=== PATIENT | female | born 2000 ===

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

== ENCOUNTER 2021-09-30 20:40 | Emergency (ER) | payer OTHER, MEDICAID, SELFPAY ==
[2021-09-30 22:01] VITALS: BP 139/64; PULSE 118; RESP 18; TEMP 37.5; O2SAT 99; BMI 28.4
[2021-09-30 22:35] LABS: COVID-19 Test Positive (Negative)
[2021-09-30 22:46] LABS: IDNOW Serial# 16C4AD1C; Influenza A Negative (Negative); Influenza B2 Negative (Negative)
--- NOTE | 2021-09-30 23:00 | ED_ITS ---
HPI - General Adult General Chief complaint: General Medical Stated complaint: fever, migraine, stuffy nose, sore throat Time Seen by Provider: 09/30/21 22:55 Source: patient Mode of arrival: ambulatory Limitations: no limitations History of Present Illness HPI narrative: Patient comes to the emergency room complaining of fever, body aches, congestion, headache for 2 days. Patient has been taking Tylenol with no relief. Patient denies nausea vomiting or diarrhea, no coughing, no chest pain or shortness of breath. Related Data Previous Rx's Medication Instructions Recorded nirmatrelvir 300 mg (150 mg x See Rx Instructions .ROUTE 09/30/21 2)-ritonavir 100 mg tablet (EUA) .COMPLEX #30 tab (Paxlovid 300 mg () Allergies Allergy/AdvReac Type Severity Reaction Status Date / Time No Known Allergies Allergy Verified 09/30/21 22:09 Review of Systems Review of Systems: Constitutional : No Weight loss, complaining of fever, chills, body aches ENT/Mouth : No Hearing loss, No Ear Pain, complaining of Nasal Congestion, No Sinus Pain, No Hoarseness, No sore throat, No Rhinorrhea, No Swallowing Difficulty Eyes: No Eye Pain, No Swelling, No Redness, No Foreign Body, No Discharge, No Vision Changes Cardiovascular : No Chest Pain, No SOB, No Dyspnea on Exertion, No Orthopnea, No Edema, No Palpitations Respiratory : No Cough, No Sputum, No Wheezing, No Smoke Exposure, No Dyspnea Gastrointestinal : No Nausea, No Vomiting, No Diarrhea, No Constipation, No abdominal Pain, No Hematochezia, No Melena Genitourinary : no irregular bleeding, No Dysuria, No Urinary Frequency, No Hematuria, No Urinary Incontinence, No Urgency, No Flank Pain, No Urinary Flow Changes, No Hesitancy Musculoskeletal : No joint pain, No Myalgias, No Joint Swelling Skin : No Skin Lesions, No rash Neuro : No Weakness, No Numbness, No Paresthesias, No Loss of Consciousness, No Dizziness, complaining of Headache Psych : No Anxiety/Panic, No Depression, No SI/HI/AH/VH, No Social Issues, Heme/Lymph: No Bruising, No Bleeding,No Lymphadenopathy Endocrine : No Polyuria, No Polydipsia, No Temperature Intolerance [facility] Social History Social History Advance Directives: No Advance Directives Information Provided: No Physical Exam ED Vital Signs: Vital Signs - 24 hr 09/30/21 22:01 Temperature 99.5 F Pulse Rate 118 H Respiratory Rate 18 Blood Pressure 139/64 Pulse Oximetry 99 BMI result Body Mass Index 28.4 Const Other: Appearance: Alert. Oriented X3. No acute distress. Eyes: Pupils equal, round and reactive to light. ENT: Pharynx normal. Neck: Normal inspection. Neck supple. No lymph nodes noted. No crepitus CVS: Normal heart rate and rhythm. Pulses normal. Normal S1 and S2 Respiratory: No respiratory distress. Breath sounds normal. No Wheezing. No rales Abdomen: Soft and nontender. No rigidity. No distention. Skin: Skin warm and dry. Normal skin color. Normal skin turgor. Extremities: No lower extremity edema. No Lacerations. No Rash Neuro: Oriented X 3. No motor deficit. No sensory deficit. Moving all extremities. No slurred speech. CN 2 through 12 grossly intact Psych: calm, cooperative, normal affect Course Course Course Narrative: Patient tested positive for COVID-19. Patient is immunized. I discussed with the patient that she is still in the window of treatment for Paxlovid. Patient agrees with plan Medical Decision Making Lab Data Labs: Lab Results 09/30/21 09/30/21 Range/Units 22:11 22:11 COVID-19 (PILY) Positive A (Negative) COVID-19 Clin Com See Note Influenza Type A (JACKY) Negative (Negative) Influenza Type B (JACKY) Negative (Negative) Influenza A & B Note See Note Discharge Plan Discharge Clinical Impression: COVID-19 Patient Disposition: Home, Self-Care Instructions: COVID-19 (Coronavirus Disease 2019) (ED) Additional Instructions: Please follow-up with your primary care physician tomorrow. If you have any worsening or new symptoms, please return to the emergency room or call 911 Prescriptions: New Paxlovid (EUA) 150 mg x 2- 100 mg tablet See Rx Instructions .ROUTE .COMPLEX Qty: 30 0RF Rx Instructions: take TWO 150 mg tablets of nirmatrelvir with ONE 100 mg tablet of ritonavir twice daily for 5 days
== END 2021-09-30 23:32 | disposition home or self-care (01) ==
PROVIDERS: Emergency Provider Emergency Medicine
DX: U07.1 COVID-19 (principal); R50.9 Fever, unspecified; M79.10 Myalgia, unspecified site; G43.909 Migraine, unspecified, not intractable, without status migrainosus; Z79.899 Other long term (current) drug therapy
CPT/HCPCS: 87502; 87635; 99282; 99283

== ENCOUNTER 2021-10-05 15:06 | Outpatient (REF) | payer OTHER, MEDICAID, SELFPAY ==
[2021-10-05 16:08] LABS: COVID-19 Test Positive (Negative)
== END 2021-10-05 15:07 | disposition home or self-care (01) ==
LOC: HO.LAB 15:06
PROVIDERS: Visit Provider Internal Medicine
DX: Z20.822 Contact with and (suspected) exposure to COVID-19 (principal)
CPT/HCPCS: 87635; C9803

== ENCOUNTER 2021-10-12 13:54 | Outpatient (REF) | payer OTHER, MEDICAID, SELFPAY ==
[2021-10-12 14:36] LABS: COVID-19 Test Negative (Negative)
== END 2021-10-12 13:55 | disposition home or self-care (01) ==
LOC: HO.LAB 13:54
PROVIDERS: Visit Provider Internal Medicine
DX: Z20.822 Contact with and (suspected) exposure to COVID-19 (principal)
CPT/HCPCS: 87635; C9803

== ENCOUNTER 2022-09-26 13:22 | Emergency (ER) | payer OTHER, SELFPAY ==
[2022-09-26 14:55] VITALS: BP 140/73; PULSE 75; RESP 18; TEMP 36.3; O2SAT 99; BMI 27.5
--- NOTE | 2022-09-26 14:55 | ED_ITS ---
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 Patient reports she had 3 wisdom teeth removed on Monday at the oral surgeon. Two on the left and 1 on the right lower. Patient reports since leaving she has had pain and swelling in her face which is unrelieved with taking ibuprofen at home. She denies any fevers, chills, difficulty breathing, difficulty swallowing. Patient reports she called the surgeon today but they did not call her back so she came here to the emergency room. Related Data Previous Rx's Medication Instructions Recorded clindamycin palmitate HCl 75 mg/5 300 mg (20 mL) PO TID 7 days #420 09/26/22 mL oral solution mL ibuprofen 100 mg/5 mL oral 600 mg (30 mL) PO Q6H PRN pain 09/26/22 suspension #473 mL Allergies Allergy/AdvReac Type Severity Reaction Status Date / Time No Known Allergies Allergy Verified 09/26/22 14:55 Review of Systems Review of Systems: Yes all other systems are reviewed and are negative Constitutional: Constitutional: Reports no additional constitutional complaints, Denies body ache(s), Denies chills, Denies fever(s), Denies headache(s) and Denies weakness Eyes: Eyes: Reports no additional eye complaints and Denies change in vision ENT: Reports system reviewed and no additional complaints, except as documented, Reports dental pain, Denies dizziness, Denies headache(s), Denies nasal congestion, Denies nasal discharge and Denies neck pain Cardiovascular: Cardiovascular: Reports no additional cardiovascular complaints, Denies chest pain, Denies leg edema and Denies dyspnea Respiratory: Respiratory: Reports no additional respiratory complaints, Denies cough and Denies dyspnea Gastrointestinal: Gastrointestinal: Reports no additional gastrointestinal complaints, Denies abdominal pain, Denies diarrhea, Denies nausea and Denies vomiting Genitourinary: Genitourinary: Reports no additional female genitourinary complaints and Denies urinary incontinence Musculoskeletal: Musculoskeletal: Reports no additional musculoskeletal complaints, Denies back pain, Denies arthralgias, Denies joint swelling, Denies neck pain, Denies numbness and Denies tingling Integumentary/Breasts: Skin/Breast: Reports system reviewed and no additional complaints, except as docu and Denies rash Neurologic: Reports system reviewed and no additional complaints, except as documented, Denies Abnormal speech present, Denies dizziness, Denies headache(s), Denies numbness, Denies tingling and Denies weakness PMFSH Past Medical History Medical History (Updated 09/26/22 @ 15:03 by Cele Alexis NP) control counseling COVID-19 Immunization declined Irregular menstrual bleeding Surgical History (Updated 09/20/22 @ 11:06 by Araceli De MD) No pertinent past surgical history Family History Family History Mother Obese Diabetes mellitus Bronchial asthma Maternal Grandmother Diabetes mellitus Brother Bronchial asthma Social History Social History Housing: Other Patient Tobacco Use Status: Never used Tobacco e-Cigarette/Vaping Use: Never Used Advance Directives: No Advance Directives Information Provided: Yes service: No Current occupational status: unemployed Hearing needs: No Vision needs: Yes Physical Exam Vital Signs: Vital Signs: Last Vital Signs Temp 97.3 F 09/26/22 14:55 Pulse 75 09/26/22 14:55 Resp 18 09/26/22 14:55 BP 140/73 H 09/26/22 14:55 Pulse Ox 99 09/26/22 14:55 O2 Del Method Room Air 09/26/22 14:55 BMI result Body Mass Index 27.5 Const: General: cooperative, healthy appearing, comfortable and no acute distress Orientation/consciousness: patient oriented x3 Limitations: no limitations HEENT: Other: No trismus I do not appreciate any dental abscess on exam Ears: hearing grossly normal bilaterally and TM's normal bilaterally General nose exam: Normal external nose present Face and sinus: Yes normal facial exam Face images: 1. Swelling and tenderness. No palpable abscess. Mouth: Normal oral and palatal mucosa present Teeth image: 1. Incision site 2. Incision site 3. Incision site Throat: Yes posterior oropharynx normal, Yes tonsils normal and Yes uvula midline Eyes: General: appearance normal, both eyes and all related structures Pu pils: Equal, round and reactive pupils present Neck: Neck: Yes normal visual inspection, Yes full ROM and Yes no lymphadenopathy Chest: Chest palpation & inspection: normal inspection of the chest Resp: Effort & Inspection: normal respiratory effort Auscultation: clear to auscultation bilaterally Cardio: Rate: regular rate Rhythm: regular rhythm Peripheral pulses: Peripheral pulses 2+ throughout GI: Inspection: Yes normal to inspection Palpation (GI): Soft to palpation and nontender Auscultation: normal bowel sounds Back/Spine/Pelvis: Thoracic/Lumbar Spine: thoracic and lumbar spine normal to inspection Skin: General skin exam: no rashes or lesions noted Neuro: General: patient oriented x3, no focal motor deficits and normal sensation to monofilament Cranial nerves: Yes Equal, round and reactive pupils present Cognition (Neuro): normal cognition Speech: No Abnormal speech present Gait exam (Neuro): Normal gait present Motor exam (neuro): 5/5 motor strength present throughout Extrem: General: Yes normal to inspection Course Course Course Narrative: This is a rapid Had wisdom teeth pulled 3 days ago Medical Decision Making Medical Decision Making [facility] Narrative: 22-year-old female who is status post 3 wisdom teeth removal on Monday presents to the ER with left facial swelling and pain despite taking ibuprofen at home. On exam there is swelling and pain over the left cheek. There is no obvious abscess. Consider postop infection. Patient will benefit from following up with her oral surgeon which she has not done so. I will start her on antibiotics with recommendations to continue to alternate Motrin and Tylenol as needed. Also recommend saltwater gargles and soft foods. Differential Diagnosis Differential Diagnoses: The differential diagnosis associated with the presentation includes Low concern for Carlos's angina, dental abscess Discharge Plan Discharge Clinical Impression: Dental infection Patient Disposition: Home, Self-Care Instructions: Toothache (ED) Additional Instructions: Alterna Motrin con Tylenol para el dolor. S?lo alimentos blandos. Hacer g?rgaras de agua salada. Llame al dentista ma?manish para el seguimiento. Alternate Motrin with Tylenol for pain. Soft foods only. Saltwater gargle. Call the dentist tomorrow to follow-up Prescriptions: New ibuprofen 100 mg/5 mL suspension 600 mg PO Q6H PRN (Reason: pain) Qty: 473 0RF clindamycin palmitate HCl 75 mg/5 mL recon soln 300 mg PO TID 7 Days Qty: 420 0RF Referrals: Araceli De MD [Primary Care Provider] - 1 week Interventions: ED Discharge Assessment Last Done: 09/26/22 15:11 Discharge Date/Time: 09/26/22 15:19
== END 2022-09-26 15:19 | disposition home or self-care (01) ==
PROVIDERS: Emergency Provider Student in an Organized Health Care Education/Training Program; PCP Internal Medicine
DX: K04.7 Periapical abscess without sinus (principal)
CPT/HCPCS: 99282; 99283

== ENCOUNTER 2022-11-14 12:19 | Outpatient (REF) | payer OTHER, SELFPAY | END 2022-11-14 12:20 | disposition home or self-care (01) | LOC: HO.HMGCLDS 12:19 | PROVIDERS: PCP Internal Medicine; Visit Provider Internal Medicine | DX: Z00.01 Encounter for general adult medical examination with abnormal findings (principal); N92.6 Irregular menstruation, unspecified | CPT/HCPCS: 36415; 80048; 80061; 82306; 84443; 84450; 84460; 85025 ==

== ENCOUNTER 2022-12-20 19:11 | Emergency (ER) | payer OTHER, SELFPAY ==
[2022-12-20 19:30] VITALS: BP 135/76; PULSE 90; RESP 18; TEMP 36.5; O2SAT 97; BMI 28.0
--- NOTE | 2022-12-20 19:32 | ED_ITS ---
HPI - Skin/Abscess/Foreign Bdy General Chief complaint: Skin/Abscess/Foreign Body Stated complaint: Rash Time Seen by Provider: 12/20/22 19:36 Source: patient Mode of arrival: ambulatory Limitations: no limitations History of Present Illness HPI narrative: 22 yo female presenting to the ER for evaluation of lower extremity bites and itching for the last 2 days. Recently treated her house and cat for fleas and had bites on her feet last week. She reports the lesions on her lower legs are bigger than the flea bites on her feet from last week. They are very itchy and she has trouble sleeping due to the itch. No fevers. No lesions on the arms or trunk. complaint: rash and insect bite/sting Onset (ago): day(s) (2) Location: LLE, RLE, L foot and R foot Severity: moderate Quality: constant and pruritic Pain Consistency: constant Relieving factors: none Exacerbating factors: none Context: witnessed insect bite Associated symptoms: denies other symptoms Treatments prior to arrival: none Related Data Previous Rx's Medication Instructions Recorded clindamycin palmitate HCl 75 mg/5 300 mg (20 mL) PO TID 7 days #420 09/26/22 mL oral solution mL ibuprofen 100 mg/5 mL oral 600 mg (30 mL) PO Q6H PRN pain 09/26/22 suspension #473 mL diphenhydramine HCl 25 mg capsule 50 mg PO TID PRN itching #20 caps 12/20/22 (Benadryl) hydrocortisone 2.5 % topical 1 appl topical TID PRN itching #20 12/20/22 ointment grams Allergies Allergy/AdvReac Type Severity Reaction Status Date / Time No Known Allergies Allergy Verified 12/20/22 19:33 Review of Systems Review of Systems: Yes all other systems are reviewed and are negative [facility] Past Medical History Medical History (Updated 12/20/22 @ 19:33 by NIKKI Sanderson) control counseling COVID-19 Immunization declined Irregular menstrual bleeding Surgical History (Updated 09/20/22 @ 11:06 by Araceli De MD) No pertinent past surgical history Family History Family History Mother Obese Diabetes mellitus Bronchial asthma Maternal Grandmother Diabetes mellitus Brother Bronchial asthma Social History Social History Housing: Other Patient Tobacco Use Status: Never used Tobacco e-Cigarette/Vaping Use: Never Used Advance Directives: No Advance Directives Information Provided: Yes service: No Current occupational status: unemployed Hearing needs: No Vision needs: Yes Physical Exam 2 Vital Signs: Vital Signs: Last Vital Signs Temp 97.7 F 12/20/22 19:30 Pulse 90 12/20/22 19:30 Resp 18 12/20/22 19:30 BP 135/76 12/20/22 19:30 Pulse Ox 97 12/20/22 19:30 O2 Del Method Room Air 12/20/22 19:30 BMI result Body Mass Index 28.0 Appearance: Alert. Oriented X3. No acute distress. HEENT: normal inspection CVS: Normal heart rate and rhythm. Pulses normal. Respiratory: No respiratory distress. Skin: Skin warm and dry. Normal skin color. Normal skin turgor. bilateral lower legs with multiple subcentimeter erythematous, raised lesions scattered throughout. hyperpigmented smaller lesions on the tops of both feet. Extremities: no joint swelling Neuro: Oriented X 3. grossly normal, nonfocal Medical Decision Making Medical Decision Making MDM Narrative: 22 yo female presenting with itchy, red rash on her bilateral lower legs x2 days. recently exposed to fleas. exam and clinical presentation c/w flea bites. will treat with topical steroids and benadryl. advised re-treating the home and linens. stable for d/c home with outpatient follow up. Differential Diagnosis Differential Diagnoses: The differential diagnosis associated with the presentation includes flea bites, insect bites, contact dermatitis, eczema, scabies External Record Review External record reviewed: Prior outpatient labs Prescription Management I considered prescription management with: Antibiotic and Other (prednisone) Critical Care Time Critical Care Time Critical Care Time: No Discharge Plan Discharge Clinical Impression: Rash Patient Disposition: Home, Self-Care Instructions: Acute Rash (ED) Additional Instructions: use the prescribed steroids ointment 3 times per day take the prescribed benadryl 3 times per day do your best not to scratch or itch recommend re-treating the home for fleas, it can take multiple treatment to successfully get rid of fleas follow up with your doctor If you develop new or worsening symptoms call 911 or come back to the ER for further evaluation. use la pomada de esteroides recetada 3 veces al d?a michael el benadryl recetado 3 veces al d?a haz tu mejor esfuerzo para no rascarte o picarte recomendamos volver a tratar el hogar para las pulgas, puede michael m?ltiples tratamientos para deshacerse de las pulgas con ?xito seguimiento con rogers m?dico Si desarrolla s?ntomas nuevos o que empeoran, llame al 911 o regrese a la yane de emergencias para lisa evaluaci?n adicional. Prescriptions: New diphenhydramine HCl [Benadryl] 25 mg capsule 50 mg PO TID PRN (Reason: itching) Qty: 20 0RF hydrocortisone 2.5 % ointment 1 appl topical TID PRN (Reason: itching) Qty: 20 2RF No Action ibuprofen 100 mg/5 mL suspension 600 mg PO Q6H PRN (Reason: pain) Qty: 473 0RF clindamycin palmitate HCl 75 mg/5 mL recon soln 300 mg PO TID 7 Days Qty: 420 0RF Referrals: Araceli De MD [Primary Care Provider] - Interventions: ED Discharge Assessment Last Done: 12/20/22 19:45 Print Language: Georgian
== END 2022-12-20 19:46 | disposition home or self-care (01) ==
PROVIDERS: Emergency Provider Internal Medicine; PCP Internal Medicine
DX: R21 Rash and other nonspecific skin eruption (principal); M79.672 Pain in left foot; M79.671 Pain in right foot; Z79.899 Other long term (current) drug therapy
CPT/HCPCS: 99282; 99283

== ENCOUNTER 2022-12-28 18:52 | Emergency (ER) | payer OTHER, SELFPAY ==
[2022-12-28 19:20] VITALS: BP 131/78; PULSE 113; RESP 18; TEMP 36.9; O2SAT 98; BMI 30.4
--- NOTE | 2022-12-28 19:20 | ED.GENADULT ---
HPI - General Adult General Chief complaint: Skin/Abscess/Foreign Body Stated complaint: rash on legs/stomach lower abdominal pain Time Seen by Provider: 12/28/22 21:31 Source: patient Mode of arrival: ambulatory Limitations: language barrier (Patient's 1st language is Sri Lankan, she does speak Syriac, laboratory chief used) History of Present Illness HPI narrative: 22-year-old female who presents emergency department for evaluation of rash on her lower extremities time 10 days and abdominal pain x1 and half weeks. The patient was seen on 12/20/2022 the emergency department for a rash to her lower extremities, that time it was thought to be secondary to the bites. Patient was treated with Benadryl and hydrocortisone cream 2.5% with no improvement of her rash. She states that she did have a CT the had fleas and CT was treated and she also cleaned her house. She states she continues to get circular red, pruritic lesions on her lower extremities and now she is getting few on her upper extremities. The patient is also noted last 1 and half weeks she states this pain is an intermittent pain in her vaginal area, she states that she has had a vaginal discharge which she states that it is her usual discharge. The patient is sexually active and has 1 partner. She last had intercourse with this partner 1 week prior. She denied systemic symptoms such as fever, chills, sore throat, cough, chest pain, shortness of breath, nausea, vomiting. She denied frequency, urgency or dysuria. She denied myalgias arthralgias. Related Data Previous Rx's Medication Instructions Recorded clindamycin palmitate HCl 75 mg/5 300 mg (20 mL) PO TID 7 days #420 09/26/22 mL oral solution mL ibuprofen 100 mg/5 mL oral 600 mg (30 mL) PO Q6H PRN pain 09/26/22 suspension #473 mL diphenhydramine HCl 25 mg capsule 50 mg PO TID PRN itching #20 caps 12/20/22 (Benadryl) hydrocortisone 2.5 % topical 1 appl topical TID PRN itching #20 12/20/22 ointment grams doxycycline hyclate 100 mg tablet 100 mg PO Q12H 14 days #28 tabs 12/28/22 metronidazole 500 mg tablet 500 mg PO BID 14 days #28 tabs 12/28/22 prednisone 20 mg tablet 60 mg PO DAILY 5 days #15 tabs 12/28/22 Allergies Allergy/AdvReac Type Severity Reaction Status Date / Time No Known Allergies Allergy Verified 12/28/22 19:19 Review of Systems Review of Systems: Yes all other systems are reviewed and are negative [facility] Past Medical History [facility] Narrative: Past medical history: None. Surgical history: None. Social history: She denies tobacco, alcohol and drug use. Medical History (Updated 12/28/22 @ 22:35 by Lisandro Diaz MD) control counseling COVID-19 Immunization declined Irregular menstrual bleeding Surgical History (Updated 09/20/22 @ 11:06 by Araceli De MD) No pertinent past surgical history Family History Family History Mother Obese Diabetes mellitus Bronchial asthma Maternal Grandmother Diabetes mellitus Brother Bronchial asthma Social History Social History Housing: Other Patient Tobacco Use Status: Never used Tobacco e-Cigarette/Vaping Use: Never Used Advance Directives: No Advance Directives Information Provided: Yes service: No Current occupational status: unemployed Hearing needs: No Vision needs: Yes Physical Exam ED Vital Signs: Vital Signs - 24 hr 12/28/22 19:20 Temperature 98.5 F Pulse Rate 113 H Respiratory Rate 18 Blood Pressure 131/78 Pulse Oximetry 98 Oxygen Delivery Method Room Air BMI result Body Mass Index 30.4 Vital signs were normal Exam: General: Awake, alert in no distress Head: Normocephalic, atraumatic EENT: PERRL, Lids normal, sclera normal, conjunctiva normal, nose normal , ears normal, throat without erythema or exudates Neck: Supple, no adenopathy, trachea midline and nontender Lung: breath sounds symmetric, no wheezing, rales or rhonchi Chest: symmetric movement, nontender Heart: regular rate and rhythm, normal S1, S2 no murmurs or rubs Abdomen: soft, moderate suprapubic tenderness, nondistended, normal bowel sounds Pelvic exam: External vaginal exam is normal no lesions noted Speculum exam: revealed a thin white discharge in the vagina and a thin, yellowish, cervical discharge. Cervix appears normal and cervical os was closed Bimanual exam: Patient has tenderness palpation over her uterus and adnexa bilaterally. She has [id number] cervical motion tenderness Back: no vertebral tenderness, no CVAT Extremities: no deformities, moves all extremities symmetrically. Patient has no increased warmth or tenderness with palpation of her joints Skin: Patient has multiple circular red lesions that do not plan on her lower extremity, they appear to be in various stages of healing, she has a few of these lesions on her arms Neuro: Awake, alert, oriented, normal speech, cranial nerves intact, moves all extremities symmetrically Psych: Pleasant, cooperative Course Course Course Narrative: RME: 22yo F w/PHMx fleas c/o persistent worsening rash to LE's and trunk x few weeks. Patient was seen and treated in our ED on 12/20 has been taking Benadryl and hydrocortisone without relief. States area spreading, admits cleansed house multiple times. Also c/o lower abdominal/pelvic pain x2 weeks. LMP 12/12. denies vaginal bleeding/discharge, dysuria, N/V Multiple bite wounds noted to bilateral lower extremities, abdomen and back, ? Fleas. No palm/sole or mucous membrane involvement Labs, UA, ordered Full HPI, ROS and PE to be performed by primary ED provider. Medications Administered Discontinued Medications Generic Name Dose Route Start Last Admin Trade Name Freq PRN Reason Stop Dose Admin Ceftriaxone Sodium 500 mg/ 0 mg 12/28/22 22:07 12/28/22 22:21 Lidocaine HCl 1 ml IM 12/28/22 22:08 1 kit ONCE ONE Administration Doxycycline Monohydrate 100 mg 12/28/22 22:07 12/28/22 22:20 Doxycycline Monohydrate 100 Mg Capsule PO 12/28/22 22:08 100 mg ONCE ONE Administration Metronidazole 500 mg 12/28/22 22:07 12/28/22 22:20 Metronidazole 500 Mg Tablet PO 12/28/22 22:08 500 mg ONCE ONE Administration Prednisone 60 mg 12/28/22 22:07 12/28/22 22:20 Prednisone 20 Mg Tablet PO 12/28/22 22:08 60 mg ONCE ONE Administration Medical Decision Making Medical Decision Making [facility] Narrative: 22-year-old female who presents emergency department for evaluation of pruritic rash to her lower extremities and pelvic pain. Patient was seen in the emergency department on 12/20/2022 for this rash and was felt that it was caused by flea bites. She was treated with Benadryl and hydrocortisone 2% cream with no improvement of her rash. The rash is gotten worse. The pelvic pain is been unchanged, she states she has had a normal vaginal discharge, she is sexually active and last had intercourse 1 week prior, she has 1 sexual partner. Vital signs were normal. Following evaluation was ordered: CBC, CMP, urinalysis, urine , CT NG gonorrhea/chlamydia, trich prep, bacterial vaginosis prep. 2228: Patient's laboratory evaluation isn't remarkable Skin lesions appear to be consistent with that he staff for strep infection or could also be related to an STD Pelvic exam is consistent for mild pelvic inflammatory disease versus cervicitis Patient will be treated with ceftriaxone 500 mg/lidocaine IM, doxycycline 100 mg orally, metronidazole 500 mg oral, prednisone 60 mg orally Patient was given prescriptions for doxycycline 100 mg q.12 hours times 14 days, metronidazole 500 mg q.12 hours time 14 days and prednisone 60 mg daily for 5 days Patient will be referred to our branch associate teller for re-evaluation in 7-10 days. Patient was given printed and verbal instructions and discharged home. Differential Diagnosis Differential Diagnoses: The differential diagnosis associated with the presentation includes Differential diagnosis includes was not limited to: Insect bites, skin infection, STD, cervicitis, pelvic inflammatory disease Admission/Observation Consideration of admission/observation: Escalation of care including admission/observation considered Lab Data MDM Lab Attestation statement: I reviewed the patient's lab results. My interpretation patient's laboratory evaluation is as follows: CBC was normal. CMP was normal. Lipase was negative. Urine test was negative. Urinalysis was negative. 12/28/22 19:41 12/28/22 19:41 Labs: Lab Results 12/28/22 12/28/22 12/28/22 Range/Units 19:41 19:41 19:55 WBC 10.1 (4.8-10.8) X10*3/uL RBC 4.58 (4.20-5.50) X10*6/uL Hgb 13.7 (12.0-16.0) g/dl Hct 40.9 (37.0-47.0) % MCV 89.3 (80.0-98.0) fL MCH 29.9 (27.0-33.0) pg MCHC 33.5 (31.0-35.0) g/dl RDW 12.4 (11.0-16.0) % Plt Count 369 (160-400) X10*3/uL MPV 9.4 (9.4-12.3) fL Immature Gran % (Auto) 0.4 (0.0-0.4) % Neut % (Auto) 57.6 (45-73) % Lymph % (Auto) 30.3 (20-40) % [place] % (Auto) 9.3 (2-11) % Eos % (Auto) 1.9 (0-4) % Baso % (Auto) 0.5 (0-2) % Lymph # (Auto) 3.1 (1.2-4.9) X10*3/uL [place] # (Auto) 0.9 (0.1-1.2) X10*3/uL Eos # (Auto) 0.2 (0.0-0.4) X10*3/uL Baso # (Auto) 0.1 (0.0-0.2) X10*3/uL Abs Immat Gran (auto) 0.04 H (0.00-0.03) X10*3/uL Absolute Neuts (auto) 5.8 (2.0-8.3) x10*3/uL Absolute Nucleated RBC 0.000 (0.0-0.012) X10*3/uL Nucleated RBC % (auto) 0.0 (0.0-0.2) /100WBC Sodium 138 (135-145) mmol/L Potassium 3.6 (3.3-5.1) mmol/L Chloride 105 (96-108) mmol/L Carbon Dioxide 24 (22-29) mmol/L Anion Gap 13 (12-20) BUN 13 (9-16) mg/dL Creatinine 0.70 (0.5-1.4) mg/dL Estim Creat Clear Calc 116.1 Estimated GFR > 60 Random Glucose 94 (60-115) mg/dL Calcium 9.3 (8.4-10.2) mg/dL Total Bilirubin 0.5 (0.0-1.0) mg/dL Direct Bilirubin 0.1 (0.0-0.5) mg/dL AST 21 (5-31) U/L ALT 17 (0-31) U/L Alkaline Phosphatase 85 (39-117) U/L Total Protein 8.0 (6.5-8.0) g/dL Albumin 4.6 (3.5-5.0) g/dL Lipase 17 (8-78) U/L Urine Color Yellow Urine Appearance Cloudy Urine pH 6.5 (5.0-9.0) Ur Specific [place] 1.020 (1.005-1.025) Urine Protein Trace (Neg-Trace) mg/dL Urine Glucose (UA) Negative (Negative) mg/dL Urine Ketones Trace (Negative) mg/dL Urine Blood Negative (Negative) Urine Nitrite Negative (Negative) Ur Leukocyte Esterase Negative (Negative) Urine Test (NEGATIVE) 12/28/22 Range/Units 19:55 WBC (4.8-10.8) X10*3/uL RBC (4.20-5.50) X10*6/uL Hgb (12.0-16.0) g/dl Hct (37.0-47.0) % MCV (80.0-98.0) fL MCH (27.0-33.0) pg MCHC (31.0-35.0) g/dl RDW (11.0-16.0) % Plt Count (160-400) X10*3/uL MPV (9.4-12.3) fL Immature Gran % (Auto) (0.0-0.4) % Neut % (Auto) (45-73) % Lymph % (Auto) (20-40) % [place] % (Auto) (2-11) % Eos % (Auto) (0-4) % Baso % (Auto) (0-2) % Lymph # (Auto) (1.2-4.9) X10*3/uL [place] # (Auto) (0.1-1.2) X10*3/uL Eos # (Auto) (0.0-0.4) X10*3/uL Baso # (Auto) (0.0-0.2) X10*3/uL Abs Immat Gran (auto) (0.00-0.03) X10*3/uL Absolute Neuts (auto) (2.0-8.3) x10*3/uL Absolute Nucleated RBC (0.0-0.012) X10*3/uL Nucleated RBC % (auto) (0.0-0.2) /100WBC Sodium (135-145) mmol/L Potassium (3.3-5.1) mmol/L Chloride (96-108) mmol/L Carbon Dioxide (22-29) mmol/L Anion Gap (12-20) BUN (9-16) mg/dL Creatinine (0.5-1.4) mg/dL Estim Creat Clear Calc Estimated GFR Random Glucose (60-115) mg/dL Calcium (8.4-10.2) mg/dL Total Bilirubin (0.0-1.0) mg/dL Direct Bilirubin (0.0-0.5) mg/dL AST (5-31) U/L ALT (0-31) U/L Alkaline Phosphatase (39-117) U/L Total Protein (6.5-8.0) g/dL Albumin (3.5-5.0) g/dL Lipase (8-78) U/L Urine Color Urine Appearance Urine pH (5.0-9.0) Ur Specific [place] (1.005-1.025) Urine Protein (Neg-Trace) mg/dL Urine Glucose (UA) (Negative) mg/dL Urine Ketones (Negative) mg/dL Urine Blood (Negative) Urine Nitrite (Negative) Ur Leukocyte Esterase (Negative) Urine Test NEGATIVE (NEGATIVE) Prescription Management I considered prescription management with: Antibiotic and Other (Prednisone) Discharge Plan Discharge Clinical Impression: Acute pelvic inflammatory disease, Skin infection Patient Disposition: Home, Self-Care Instructions: Pelvic Inflammatory Disease (ED) Additional Instructions: This time I do not think that the rash on your legs is caused by insect bites but are more consistent with a skin infection. I am going to treat you with doxycycline, see the instructions below, this antibiotic will treat a skin infection and a pelvic infection. Pelvic inflammatory disease instructions: Your presentation and physical findings are consistent with pelvic inflammatory disease (PID). Approximately 30% of the time, pelvic inflammatory disease is caused by sexually transmitted diseases such as Trichomonas, gonorrhea or chlamydia. Approximately 70% of the time, pelvic inflammatory disease is caused by abnormal bacteria (anaerobic bacteria) in your vagina that can cause an infection Medications You received ceftriaxone 500 mg intramuscularly here in the emergency department Take doxycycline 100 mg, 1 pill twice a day for 14 days. Take metronidazole 500 mg, 1 pill twice a day for 14 days. These 3 antibiotics treat sexually transmitted diseases such as gonorrhea, chlamydia and Trichomonas as well as anaerobic bacteria that can cause pelvic inflammatory disease. Take ibuprofen 200 mg pills, 3 pills every 6 hours as needed for pain. Take Tylenol (acetaminophen) 500 mg pills, 2 pills every 6 hours as needed for pain. Follow-Up Follow-up with our gynecology in 10-14 days. Pending laboratory tests: The doctor that follows up will need to review the following results with you: Bacterial vaginosis testing Gonorrhea and chlamydia (cervical swab) Trichomonas testing You can also check these results on the patient portal. Return precautions: Please return to the emergency department if your symptoms get worse if your pain does not go away in 24-48 hours or if you develop any symptoms that are concerning to you. Prescriptions: New prednisone 20 mg tablet 60 mg PO DAILY 5 Days Qty: 15 0RF metronidazole 500 mg tablet 500 mg PO BID 14 Days Qty: 28 0RF doxycycline hyclate 100 mg tablet 100 mg PO Q12H 14 Days Qty: 28 0RF No Action ibuprofen 100 mg/5 mL suspension 600 mg PO Q6H PRN (Reason: pain) Qty: 473 0RF clindamycin palmitate HCl 75 mg/5 mL recon soln 300 mg PO TID 7 Days Qty: 420 0RF diphenhydramine HCl [Benadryl] 25 mg capsule 50 mg PO TID PRN (Reason: itching) Qty: 20 0RF hydrocortisone 2.5 % ointment 1 appl topical TID PRN (Reason: itching) Qty: 20 2RF Referrals: Kartik Carrasco MD [Physician] - 10 days (Follow-up for PID)
--- NOTE | 2022-12-28 19:44 | MHC.EDTECH ---
PATIENT BLOOD DRAWN AND SENT TO LAB ,PT WAS UNABLE TO GIVE URINE SAMPLE AT THIS TIME .
[2022-12-28 19:46] LABS: MANUAL DIFF FLAG NO
[2022-12-28 19:47] LABS: Basophils Absolute Auto 0.1 X10*3/uL (0.0-0.2); Basophils Percent Auto 0.5 % (0-2); Eosinophils Absolute Auto 0.2 X10*3/uL (0.0-0.4); Eosinophils Percent Auto 1.9 % (0-4); Hematocrit 40.9 % (37.0-47.0); Hemoglobin 13.7 g/dl (12.0-16.0); Imm Gran Abs Auto 0.04 X10*3/uL (0.00-0.03); Imm Gran Pct Auto 0.4 % (0.0-0.4); Lymphocytes Absolute Auto 3.1 X10*3/uL (1.2-4.9); Lymphocytes Percent Auto 30.3 % (20-40); Mean Corpuscular HGB Conc 33.5 g/dl (31.0-35.0); Mean Corpuscular Hemoglobin 29.9 pg (27.0-33.0); Mean Corpuscular Volume 89.3 fL (80.0-98.0); Mean Platelet Volume 9.4 fL (9.4-12.3); Monocytes Absolute Auto 0.9 X10*3/uL (0.1-1.2); Monocytes Percent Auto 9.3 % (2-11); Neutrophils Absolute Auto 5.8 x10*3/uL (2.0-8.3); Neutrophils Percent Auto 57.6 % (45-73); Platelet Count 369 X10*3/uL (160-400); Red Blood Count 4.58 X10*6/uL (4.20-5.50); Red Cell Distribution Width 12.4 % (11.0-16.0); White Blood Count 10.1 X10*3/uL (4.8-10.8)
[2022-12-28 20:01] LABS: Alanine Aminotransferase 17 U/L (0-31); Albumin Level 4.6 g/dL (3.5-5.0); Alkaline Phosphatase 85 U/L (39-117); Anion Gap 13 (12-20); Aspartate Amino Transferase 21 U/L (5-31); Bilirubin Direct 0.1 mg/dL (0.0-0.5); Bilirubin Total 0.5 mg/dL (0.0-1.0); Blood Urea Nitrogen 13 mg/dL (9-16); Calcium 9.3 mg/dL (8.4-10.2); Carbon Dioxide 24 mmol/L (22-29); Chloride 105 mmol/L (96-108); Creatinine Clr Calc Pharmacy 116.1; Estimated Glomerular Filt Rate > 60; Glucose Random 94 mg/dL (60-115); Lipase 17 U/L (8-78); Potassium 3.6 mmol/L (3.3-5.1); Sodium 138 mmol/L (135-145)
[2022-12-28 20:02] LABS: Appearance Urine Cloudy; Color Urine Yellow; Glucose Urine UA Negative (Negative); Leukocyte Esterase Urine Negative (Negative); Nitrite Urine Negative (Negative); PH 6.5 (5.0-9.0); Urine Blood Negative (Negative); Urine Ketones Trace mg/dL (Negative); Urine Protein Trace mg/dL (Neg-Trace)
[2022-12-28 20:03] LABS: UPreg QC Valid YES; Urine Pregnancy NEGATIVE (NEGATIVE)
[2022-12-28] MEDS: predniSONE 20 MG TABLET 60 MG PO (22:20)
[2022-12-28] MEDS: Doxycycline Monohydrate 100 MG CAPSULE PO (22:20)
[2022-12-28] MEDS: metroNIDAZOLE 500 MG TABLET PO (22:20)
[2022-12-28] MEDS: cefTRIAXone sodium 500 MG, Lidocaine HCl 1 % MPF 1 ML IM (22:21)
--- NOTE | 2022-12-28 22:23 | PC.NURSE ---
pt medicated per MAR.
[2022-12-29 09:06] LABS: CT PCR NOT DETECTED (Not Detect.); NG PCR NOT DETECTED (Not Detect.)
[2022-12-29 10:44] LABS: BV Int Neg Control Negative (Negative); BV Int Pos Control Positive (Positive)
== END 2022-12-28 22:42 | disposition home or self-care (01) ==
PROVIDERS: Physician Assistant; Emergency Provider Emergency Medicine Emergency Medical Services; PCP Internal Medicine
DX: N73.0 Acute parametritis and pelvic cellulitis (principal); L08.9 Local infection of the skin and subcutaneous tissue, unspecified; R10.9 Unspecified abdominal pain
CPT/HCPCS: 0353U; 36415; 80048; 80076; 81003; 81025; 83690; 85025; 87480; 87510; 87660; 96372; 99282; 99284; J0696

== ENCOUNTER 2023-05-30 14:33 | Outpatient (REF) | payer OTHER, SELFPAY ==
[2023-06-16 05:29] LABS: HPV mRNA E6/E7 rflx Not Detected (Not Detected)
== END 2023-05-30 14:34 | disposition home or self-care (01) ==
LOC: HO.LNP 14:33
PROVIDERS: PCP Internal Medicine; Visit Provider Advanced Practice Midwife
DX: Z12.4 Encounter for screening for malignant neoplasm of cervix (principal); Z11.51 Encounter for screening for human papillomavirus (HPV); N92.6 Irregular menstruation, unspecified
CPT/HCPCS: 0353U; 36415; 86780; 86803; 87340; 87389; 87480; 87510; 87624; 87660; 88142; 99202

== ENCOUNTER 2023-05-30 14:33 | Outpatient (AMB) | payer OTHER, SELFPAY ==
--- NOTE | 2023-05-30 14:34 | MHC.OFFVIS ---
Intake Vital Signs 05/30/23 14:35 Height 5 ft 1 in Weight 143 lb BMI 27.0 Intake Visit Reasons: New patient irregular menses Intake Note: control, sporadic lower abdominal pain was seen at the ER in December for same reason, sometimes gets menses twice in a month. 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 Information Interpreted: non-clinical & clinical National Sales Executive: National Sales Executive Present (Aidyn) Allergies No Known Allergies Allergy (Verified 05/30/23 14:37) Medication List - Last Reconciled 05/30/23 by Dina Lanza CNM No Known Home Meds Is last menstrual period known: Yes Last menstrual period: 05/08/23 Post menopausal: No HPI New patient irregular menses HPI Details Patient is listed as a visit for irregular menses but really she wants to talk control she is use a methods in the past and did not like them she could not remember the pills no matter what she did with an alarm on her phone she does not like the idea of the patch either for the same reason or the NuvaRing 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 Additionally she does not want any part of any method that makes her periods go way she thinks she likes having her. And does not want to change that she does have pains that she perceives as somewhat random though when I asked her to remember when she last had the pain it in fact correlated with the days around ovulation that were noted in her appt she had paid attention to that as well and was wondering if that was in fact what was going on. She uses condoms for control now but would like something more reliable as well as using the condoms. She has lost weight in the last few months by trying to eat better and take it better care of herself. She had gone off control and become abstinent from sex for a while but she has recently started seeing somebody and wants better protection again. She has had 2 pelvic exams both in ERs when she went in for pain. She thought that she had an ultrasound at the last ER visit but records of the last ER visit revealed that she was examined and treated for presumptive PID ceftriaxone and other antibiotics. The testing was all negative. She has not yet ever had a Pap smear and there was no ultrasound done in fact. [facility] Medical History (Updated 05/30/23 @ 15:26 by Dina Lanza CNM) Immunization declined control counseling Irregular menstrual bleeding COVID-19 Surgical History (Updated 09/20/22 @ 11:06 by Araceli De MD) No pertinent past surgical history Family History Mother Obese Diabetes mellitus Bronchial asthma Maternal Grandmother Diabetes mellitus Brother Bronchial asthma Social History Housing: Other Patient Tobacco Use Status: Never used Tobacco e-Cigarette/Vaping Use: Never Used service: No Current occupational status: unemployed Hearing needs: No Vision needs: Yes Female Reproductive History Menstrual Age of Menarche: 13 Duration of menses: 3-5 days Date of last menstrual period: 05/08/23 control method: none Total pregnancies: 0 Physical Exam Vital Signs: BMI result Body Mass Index 27.0 External Female Exam: normal external appearance Speculum Exam - Vagina: normal appearance of the vagina and normal vaginal discharge Speculum Exam - Cervix: normal appearance of the cervix Bimanual exam- vagina & uterus: normal bimanual exam, uterine size normal, consistency normal, uterine mobility normal, uterine shape normal and non-tender Bimanual Exam- Adnexa, other: normal adnexae, no masses and No adnexal tenderness Assessment & Plan Assessment & Plan (1) control counseling: Code(s): Z30.09 - Encounter for other general counseling and advice on contraception (2) Irregular menstrual bleeding: Code(s): N92.6 - Irregular menstruation, unspecified (3) Encounter for screening examination for sexually transmitted disease: Code(s): Z11.3 - Encounter for screening for infections with a predominantly sexual mode of transmission (4) Cervical cancer screening: Code(s): Z12.4 - Encounter for screening for malignant neoplasm of cervix Plan -I reviewed with the patient, all of the currently common used methods of control that are available. We reviewed how they work in the body, how they are taken, common side effects, uncommon side effects, precautions, and contraindications. -Discussed also factors that influence their effectiveness and use, and womens satisfaction with the method. -Discussed how each are used, and drawbacks of each method as well. -Methods covered included: condoms, control pills, control patches, control rings, Depo-Provera, Nexplanon, Mirena and Kyleena IUDs, and ParaGard IUDs. All of the above methods were covered in great detail including their side effect profiles and common experiences that women have and ways to mitigate against the negative experiences including attention to diet and exercise patient's with bleeding challenges that may occur her and efforts to time the initiation of the method to this start of the menstrual period. Did her 1st Pap and testing for STIs I offered to show her cervix but she was okay without looking her cervix was gaping slightly with normal white discharge consistent with the 2nd part of once menstrual cycle. After much discussion about the detail of all of the methods of control including method she is used in the past and what she felt when on them and what she liked and did not like about various methods she ruled out control pills patches rings Depo-Provera Nexplanon and also the IUD that would make her not have periods she likes having her. Even though she is noticing that sometimes it can be a little irregular in discussing her menses in detail it seems that in this past year she has had 1 month with the 25 day cycle and also 1 month with 42 day cycle it turns out that when she looked up when she had the pain it was at the right time in her cycle to coincide with ovulation. She actually finds that her periods are not that uncomfortable for her or odorous and her more challenging time as the week before her. 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 Discussed that we will try our best she signed the form for the ParaGard to be ordered and was given instructions by Juan Manuel in the front, and we will call her when the ParaGard is in and await her next menses. For now she is using condoms. Orders: Orders Pap Smear Today Z12.4 - Encounter for screening for malignant neoplasm of cervix Hepatitis C Antibody Today N92.6 - Irregular menstruation, unspecified, Z11.3 - Encounter for screening for infections with a predominantly sexual mode of transmission, Z12.4 - Encounter for screening for malignant neoplasm of cervix, Z30.09 - Encounter for other general counseling and advice on contraception Bacterial Vaginosis Panel Today Z20.2 - Contact with and (suspected) exposure to infections with a predominantly sexual mode of transmission CT NG by PCR Today Z20.2 - Contact with and (suspected) exposure to infections with a predominantly sexual mode of transmission Hepatitis B Surface Antigen Today N92.6 - Irregular menstruation, unspecified, Z11.3 - Encounter for screening for infections with a predominantly sexual mode of transmission, Z12.4 - Encounter for screening for malignant neoplasm of cervix, Z30.09 - Encounter for other general counseling and advice on contraception HIV Ab/Ag Today N92.6 - Irregular menstruation, unspecified, Z11.3 - Encounter for screening for infections with a predominantly sexual mode of transmission, Z12.4 - Encounter for screening for malignant neoplasm of cervix, Z30.09 - Encounter for other general counseling and advice on contraception Syphilis Screen Today N92.6 - Irregular menstruation, unspecified, Z11.3 - Encounter for screening for infections with a predominantly sexual mode of transmission, Z12.4 - Encounter for screening for malignant neoplasm of cervix, Z30.09 - Encounter for other general counseling and advice on contraception Coding Level of Care Code New Pt Level 3 (11658) Diagnoses control counseling Z30.09 Irregular menstrual bleeding N92.6 Encounter for screening examination for sexually transmitted disease Z11.3 Cervical cancer screening Z12.4
[2023-05-30 14:35] VITALS: BMI 27.0
== END 2023-05-30 15:52 | disposition home or self-care (01) ==
LOC: HO.HWSM 14:33
PROVIDERS: PCP Internal Medicine; Visit Provider Advanced Practice Midwife
DX: Z30.09 Encounter for other general counseling and advice on contraception (principal); N92.6 Irregular menstruation, unspecified
CPT/HCPCS: 99203

== ENCOUNTER 2023-05-30 15:38 | Outpatient (REF) | payer OTHER, SELFPAY ==
[2023-05-31 08:14] LABS: HBsAGNum1 0.28 S/CO (0.00-0.99); HIV AB/AG Nonreactive (Nonreactive); HIV Num 1 0.05 S/CO (0.00-0.99); Hepatitis B Surface Antigen Negative (Negative); ~HepC Num1 0.14 S/CO (0.00-0.79); ~Hepatitis C Antibody Nonreactive (Nonreactive)
[2023-05-31 08:25] LABS: Syphilis Screen Nonreactive (Nonreactive)
[2023-05-31 11:21] LABS: CT PCR NOT DETECTED (Not Detect.); NG PCR NOT DETECTED (Not Detect.)
[2023-05-31 13:23] LABS: BV Int Neg Control Negative (Negative); BV Int Pos Control Positive (Positive)
== END 2023-05-30 15:39 | disposition home or self-care (01) ==
LOC: HO.HHCL 15:38
PROVIDERS: Visit Provider Advanced Practice Midwife
DX: Z11.3 Encounter for screening for infections with a predominantly sexual mode of transmission (principal); Z11.4 Encounter for screening for human immunodeficiency virus [HIV]; Z20.2 Contact with and (suspected) exposure to infections with a predominantly sexual mode of transmission; N92.6 Irregular menstruation, unspecified
CPT/HCPCS: 0353U; 36415; 86780; 86803; 87340; 87389; 87480; 87510; 87660

== ENCOUNTER 2023-07-02 16:25 | Emergency (ER) | payer OTHER, SELFPAY ==
[2023-07-02 16:33] VITALS: BP 136/79; PULSE 103; RESP 16; TEMP 36.9; O2SAT 98; BMI 26.7
--- NOTE | 2023-07-02 16:33 | ED_ITS ---
HPI - General Adult General Chief complaint: Fever Stated complaint: fever, sore throat, eye/ body ache, fever Time Seen by Provider: 07/02/23 17:53 Source: patient Mode of arrival: ambulatory Limitations: no limitations History of Present Illness HPI narrative: 22 year old female with pmhx significant for irregular menstrual bleeding presents to the ED today for evaluation of headache, body aches, nasal congesti on, fevers and sore throat x2 days. T-max of 103?F at home. She has been taking Tylenol. Last dose prior to arrival. Denies known sick contacts. Denies cough, sputum production, chest pain, shortness of breath, dyspnea, wheezing, dysphagia, odynophagia, N/V, abd pain. Related Data Previous Rx's Medication Instructions Recorded benzocaine 15 mg-menthol 2.6 mg 1 inder mucous membrane Q2-4H PRN 07/02/23 lozenges (Cepacol Sore Throat sore throat #16 ea (benzocaine-menthol)) Allergies Allergy/AdvReac Type Severity Reaction Status Date / Time No Known Allergies Allergy Verified 07/02/23 16:33 Review of Systems Review of Systems: Constitutional: +fever, No chills, fatigue, night sweats, weight changes ENT/Mouth: No ear pain, hearing loss, +nasal congestion, No sinus pain, rhinorrhea, +sore throat, No odynophagia, No dysphagia Eyes: No eye pain, swelling, redness, vision changes, discharge Cardio: No chest pain, palpitations, CEVALLOS, orthopnea, peripheral edema Pulm: No SOB, cough, sputum, wheezing, dyspnea, hemoptysis GI: No nausea, vomiting, hematemesis, abdominal pain, diarrhea, constipation, hematochezia, melena : No irregular bleeding, dysuria, frequency, urgency, hesitancy, hematuria, flank pain MSK: No back pain, neck pain, joint pain, +myalgias Skin: No lesions, rashes Neuro: No weakness, numbness, paresthesias, LOC, dizziness, +headache All other systems reviewed and are negative. [facility] Past Medical History Attestation statement: The following information was validated with the patient. Source: old records reviewed and nursing notes reviewed Medical History Immunization declined control counseling Irregular menstrual bleeding COVID-19 Surgical History No pertinent past surgical history Family History Family History Mother Obese Diabetes mellitus Bronchial asthma Maternal Grandmother Diabetes mellitus Brother Bronchial asthma Social History Social History Housing: Other Patient Tobacco Use Status: Never used Tobacco e-Cigarette/Vaping Use: Never Used Advance Directives: No Advance Directives Information Provided: No service: No Current occupational status: unemployed Hearing needs: No Vision needs: Yes Physical Exam ED Vital Signs: Vital Signs - 24 hr 07/02/23 16:33 Temperature 98.5 F Pulse Rate 103 H Respiratory Rate 16 Blood Pressure 136/79 Pulse Oximetry 98 Oxygen Delivery Method Room Air BMI result Body Mass Index 26.7 Vital signs stable, afebrile Const General: cooperative, healthy appearing, comfortable, no acute distress, alert and awake Orientation/consciousness: patient oriented x3 Limitations: no limitations HENMT Other: + posterior oropharynx erythematous, no edema, uvula is midline, no tonsilar exudates or peritonsillar masses, controlling secretions and speaking in complete sentences Head: Yes normal to inspection, Yes normocephalic and Yes atraumatic Ears: hearing grossly normal bilaterally, external ears normal, TM's normal bilaterally, EAC's normal, mastoids normal and no periauricular adenopathy General nose exam: Normal external nose present and No nasal discharge present Face and sinus: Yes normal facial exam and Yes sinuses nontender Eyes General: appearance normal, both eyes and all related structures Conjunctivae: conjunctivae normal Sclerae: sclerae normal Pupils: Equal, round and reactive pupils present Neck Other: + no cervical, submandibular or submental LAD. Neck: Yes normal visual inspection and Yes full ROM Resp Effort & Inspection: normal respiratory effort and able to speak in complete sentences Auscultation: clear to auscultation bilaterally Cardio Rate: regular rate Rhythm: regular rhythm GI Inspection: Yes normal to inspection Palpation (GI): Soft to palpation and nontender Skin General skin exam: no rashes or lesions noted Neuro General: patient oriented x3, gait normal and moves all extremities Cranial nerves: Yes Equal, round and reactive pupils present Extrem General: Yes normal to inspection Course Course Course Narrative: RME:?22 yo female here for eval of sore throat, headache, body aches, nasal congestion, fevers x2 days. TMAX 103F. taking tylenol at home. no sick contacts. no dysphagia or odynophagia. afebrile. controlling secretions. speaking in complete sentences. uvula midline. viral swabs ordered. Full HPI, ROS and PE to be performed by the primary ED provider. Reevaluation(s) Reevaluation #1: 1805-- patient has tested positive for influenza A. Discussed workup results with patient. Discussed worrisome signs and symptoms of when to return to the ED. Will send Cepacol throat lozenges to pharmacy. Patient has remained stable throughout ED visit today. All questions answered at this time. Patient is agreeable with disposition and stable for discharge. Medical Decision Making Medical Decision Making [facility] Narrative: 22 year old female with pmhx significant for irregular menstrual bleeding presents to the ED today for evaluation of headache, body aches, nasal congestion, fevers and sore throat x2 days. Afebrile. Patient is nontoxic appearing and in NAD. posterior oropharynx erythematous, no edema, uvula is midline, no tonsilar exudates or peritonsillar masses, controlling secretions and speaking in complete sentences. Lungs CTA bilaterally. Abdomen soft, ND/NT. No calf tenderness. Exam nonfocal. Clinical concern for viral syndrome, strep throat. Unlikely mono, MAJOR DONOR COORDINATOR, retropharyngeal abscess, epiglottitis, pneumonia. Plan for viral serology and re-evaluation. Differential Diagnosis Differential Diagnoses: The differential diagnosis associated with the presentation includes as above. Admission/Observation Not indicated Lab Data [facility] Lab Attestation statement: I reviewed the patient's lab results. as above Labs: Lab Results 07/02/23 Range/Units 17:05 Influenza Type A (PCR) POSITIVE A (Negative) Influenza Type B (PCR) NEGATIVE (Negative) RSV RNA Qual (PCR) NEGATIVE (Negative) SARS-CoV-2 RNA (RT-PCR) NEGATIVE (Negative) S. pyogenes GrpA JACKY Negative (Negative) External Record Review External record reviewed: Inpatient record Prescription Management I considered prescription management with: Pain Medication and Antibiotic Critical Care Time Critical Care Time Critical Care Time: No Discharge Plan Discharge Clinical Impression: Influenza A Patient Disposition: Home, Self-Care Instructions: Influenza (ED), Flu Shot (Vaccine) for Adults (ED), Droplet Precautions (ED) Additional Instructions: You tested positive for influenza A today. This is a virus which does not require treatment with antibiotics. Treatment is symptomatic. You may take nylk-gil-ystbelo cough medicine such is Robitussin. Alter ibuprofen and Tylenol for fevers and body aches. Cepacol throat lozenges have been sent to your pharmacy for sore throat. Follow-up with your PCP as needed. If symptoms persist or worsen please return to the emergency department. The case of an emergency call 911. Prescriptions: New Cepacol Sore Throat (dav-men) 15-2.6 mg lozenge 1 inder mucous membrane Q2-4H PRN (Reason: sore throat) Qty: 16 0RF Referrals: [facility] [Provider Group] [facility] [Provider Group] Stand Alone Forms: Work/School Release Interventions: ED Discharge Assessment Last Done: 07/02/23 18:14 Discharge Date/Time: 07/02/23 18:15
[2023-07-02 17:18] LABS: IDNOW Serial# 08D9AD1C
[2023-07-02 17:19] LABS: Strep A Nucleic Acid Negative (Negative)
[2023-07-02 17:48] LABS: Influenza A PCR POSITIVE (Negative); Influenza B PCR NEGATIVE (Negative); Resp Syncy Virus RNA Qual PCR NEGATIVE (Negative); SARS COV2 PCR INHOUSE NEGATIVE (Negative)
== END 2023-07-02 18:15 | disposition home or self-care (01) ==
PROVIDERS: Physician Assistant Medical; Emergency Provider Student in an Organized Health Care Education/Training Program; PCP Internal Medicine
DX: J10.1 Influenza due to other identified influenza virus with other respiratory manifestations (principal); R50.9 Fever, unspecified; M79.10 Myalgia, unspecified site; Z20.822 Contact with and (suspected) exposure to COVID-19; Z20.828 Contact with and (suspected) exposure to other viral communicable diseases
CPT/HCPCS: 0241U; 87651; 99282; 99283

== ENCOUNTER 2023-07-06 09:11 | Outpatient (AMB) | payer OTHER, SELFPAY ==
--- NOTE | 2023-07-06 09:11 | MHC.OFFVIS ---
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 She had a Pap smear done very recently it came back with CARROLL 1. I explained to her that she will need a repeat Pap smear next year discussed the ASCCP recommendations and guidelines and the theory that a young healthy person can fight off the HPV virus and that is why it will be repeated next year also asked the patient to investigate whether not she receive the Gardasil vaccine in [place] she has not sure if she did her not she thinks her mom brought her to the food quality technician mostly when she was sick but she does think she got most of the vaccines as well she will check into that. Her last period was in the 20s some things of May and it was normal and her periods are not too crampy usually and they last about 4 days and it started yesterday she last had sex about a month ago. Before the last menstrual period. [facility] Medical History Immunization declined control counseling Irregular menstrual bleeding COVID-19 Surgical History No pertinent past surgical history Family History Mother Obese Diabetes mellitus Bronchial asthma Maternal Grandmother Diabetes mellitus Brother Bronchial asthma Social History Housing: Other Patient Tobacco Use Status: Never used Tobacco e-Cigarette/Vaping Use: Never Used service: No Current occupational status: unemployed Hearing needs: No Vision needs: Yes Female Reproductive History Menstrual Age of Menarche: 13 Duration of menses: 3-5 days Date of last menstrual period: 07/05/23 control method: none Total pregnancies: 0 Date of last pap smear: 05/31/23 (CARROLL 1) History of abnormal pap smear: Yes Physical Exam Vital Signs: Last Vital Signs BP 92/60 07/06/23 09:17 BMI result Body Mass Index 26.8 Office Procedures IUD Insert/Removal Details Details: ---Patient is here for her paragard iud insertion. Bimanual exam was done. Her uterus is firm, nontender, and appropriate sized, and is midposition . The cervix was swabbed with Betadine.. Tenaculum was placed on the cervix slowly to minimize cramping. The uterus was sounded slowly and gently she show a measurement of 7 cm. The IUD was removed from its package, after checking identifying information and lot dates and expiration dates and and gently inserted into the os, as per the IUD insertion procedure. The strings were then trimmed to 3-4 centimetres. The tenaculum was removed and gentle pressure applied with a swab, until any bleeding subsided from the tenaculum sites. The speculum was gently removed. note after removal of the tenaculum and the cervix was swabbed for moderate amount of blood. There was a white dot visible within the cervical os. It was probed with Cytobrush no hard plastic was palpated however because of the appearance of this white spot I will have the patient get a stat ultrasound to day to ascertain whether not the ParaGard IUD has not descended immediately after insertion. ParaGard had deployed perfectly into her 7 cm uterus. The patient sat up. Ultrasound has been ordered and the patient is to call the office to speak to the nurses after the ultrasound to verify that it is in the right place other than that we will see her in 6 weeks presuming everything is okay. I Reviewed what to expect, and what indications would necessitate a call. Pt to call for fever, untoward pain or cramping. I reviewed any appropriate backup method. Pt to return for recheck as scheduled. [id number] Insertion Procedure code (CPT) selection complete IUD Insert/Removal Details Procedure code (CPT) selection complete Office Meds ParaGard T 380A 380 square mm intrauterine device Performing Provider: Dina Lanza CNM [facility] Administered by: Rick Covarrubias CMA on 07/06/23 16:00 Dose Route Admin Location Dispensed Lot Number Expiration Date [facility] [employer] Build[employer] Laminator 1 device intrauterine 1 device [id number] 09/11/28 [id number] [employer] Comments: Nanci Lott 380A 380 square mm intrauterine device Performing Provider: Dina Lanza CNM [facility]forming [facility] Documented (not given) by: Dina Lanza CNM on 07/06/23 10:05 Reason Not Given: No Longer Necessary Results AMB Test Urine AMB Test Urine Negative Last Edit by Rick Covarrubias CMA on 07/06/23 10:54 Results Reviewed Results Reviewed: Laboratory Last Values Tst Clinic Negative 07/06/23 10:52 Name: Jennifer Doan Age/Sex: 22/F Attending: Dina Lanza CNM : 2000 Submitted by: Dina Lanza CNM Copies to: Araceli De MD MR #: [id number] Status: DEP REF Collected: 05/30/23 Location: [facility] Received: 05/31/23 Interpretation General Category: Epithelial cell abnormality. Adequacy: Endocervical component absent. Interpretation: Low grade squamous intraepithelial lesion (CARROLL I). Clinical Information LMP: 05/08/23 Previous PAP test: First pap Material Received ThinPrep-Cervical Copies To Araceli De MD [facility] [address] [place] [address] Electronically Signed By: Carmella Kent 06/06/23 0958 The Pap Test is a screening procedure with the inherent possibility of both false negative and false positive results. Results should be interpreted in the context of historic and current clinical findings. Reliability of the Pap Test is enhanced by performing the test on a regular repetitive basis. Patient: Jennifer Doan Age/Sex: 22/F MR#: [id number] Page 1 of 1 Assessment & Plan Assessment & Plan (1) Cervical cancer screening: Comment: 05/30/2023 Pap is CARROLL 1, per ASCCP, rec f/u is repeat cytology in 1 yr. Code(s): Z12.4 - Encounter for screening for malignant neoplasm of cervix (2) Encounter for screening examination for sexually transmitted disease: Code(s): Z11.3 - Encounter for screening for infections with a predominantly sexual mode of transmission (3) control counseling: Code(s): Z30.09 - Encounter for other general counseling and advice on contraception (4) Encounter for IUD insertion: Code(s): Z30.430 - Encounter for insertion of intrauterine contraceptive device (5) IUD complication: Comment: need to verify correct placement of iud. paragard iud deployed perfectly, however white spot visible in os after.... NOTE PER THE STAT ULTRASOUND THE IUD IS IN OPTIMAL POSITION. Code(s): T83.9XXA - Unspecified complication of genitourinary prosthetic device, implant and graft, initial encounter Plan ---Patient is here for her paragard iud insertion. Bimanual exam was done. Her uterus is firm, nontender, and appropriate sized, and is midposition . The cervix was swabbed with Betadine.. Tenaculum was placed on the cervix slowly to minimize cramping. The uterus was sounded slowly and gently she show a measurement of 7 cm. The IUD was removed from its package, after checking identifying information and lot dates and expiration dates and and gently inserted into the os, as per the IUD insertion procedure. The strings were then trimmed to 3-4 centimetres. The tenaculum was removed and gentle pressure applied with a swab, until any bleeding subsided from the tenaculum sites. The speculum was gently removed. note after removal of the tenaculum and the cervix was swabbed for moderate amount of blood. There was a white dot visible within the cervical os. It was probed with Cytobrush no hard plastic was palpated however because of the appearance of this white spot I will have the patient get a stat ultrasound to day to ascertain whether not the ParaGard IUD has not descended immediately after insertion. ParaGard had deployed perfectly into her 7 cm uterus. The patient sat up. Ultrasound has been ordered and the patient is to call the office to speak to the nurses after the ultrasound to verify that it is in the right place other than that we will see her in 6 weeks presuming everything is okay. I Reviewed what to expect, and what indications would necessitate a call. Pt to call for fever, untoward pain or cramping. I reviewed any appropriate backup method. The patient is to return as above for any follow-up or in 6 weeks if the IUD is in the correct site. I reviewed self-care in detail no unprotected sex until IUD is verified and for at least 3 days. NOTE PER THE STAT ULTRASOUND THE IUD IS IN THE OPTIMAL POSITION. Orders: Orders US pelvic and transvaginal Today T83.9XXA - Unspecified complication of genitourinary prosthetic device, implant and graft, initial encounter, Z30.430 - Encounter for insertion of intrauterine contraceptive device AMB IUD Insertion/Removal - Practice Supplied Today Z30.430 - Encounter for insertion of intrauterine contraceptive device AMB IUD Insertion/Removal - Patient Supply Today Z30.430 - Encounter for insertion of intrauterine contraceptive device AMB HCG Urine Test Today Z32.02 - Encounter for test, result negative Coding Level of Care Code Est Pt Level 3 (11120) Diagnoses Cervical cancer screening Z12.4 Encounter for screening examination for sexually transmitted disease Z11.3 control counseling Z30.09 Encounter for IUD insertion Z30.430 IUD complication T83.9XXA CPT Codes Details - CPT: 65917-LFF Insertion ([id number])
[2023-07-06 09:17] VITALS: BP 92/60; BMI 26.8
== END 2023-07-06 10:47 | disposition home or self-care (01) ==
LOC: HO.HWSM 09:11
PROVIDERS: PCP Internal Medicine; Visit Provider Advanced Practice Midwife
DX: Z30.430 Encounter for insertion of intrauterine contraceptive device (principal); Z32.02 Encounter for pregnancy test, result negative
CPT/HCPCS: 58300

== ENCOUNTER → 2023-07-06 09:11 | Outpatient (BNVA) | payer OTHER, SELFPAY | PROVIDERS: PCP Internal Medicine; Visit Provider Advanced Practice Midwife ==

== ENCOUNTER 2023-07-06 10:54 | Outpatient (REF) | payer OTHER, SELFPAY ==
--- NOTE | ~2023-07-06 | US_ITS ---
EXAMINATION: US PELVIC COMPLETE WITH TV CLINICAL INFORMATION: Evaluate Paragard intrauterine contraceptive device insertion. COMPARISON: None available. TECHNIQUE: Real-time transabdominal and transvaginal ultrasound scanning. FINDINGS: Transabdominal and transvaginal ultrasound examination of the pelvis were performed. Uterus: Anteverted; measuring 7.5 cm in length, 3.0 cm in AP diameter and 3.7 cm in width. Uterine cervix measures 2.3 cm in length. Echotexture: normal sonographic appearance Linear echogenicities corresponding to T shaped intrauterine contraceptive device are seen in optimal position. Endometrium, T-shaped intrauterine contraceptive device and uterus are well-demonstrated on 3-dimensional reconstructed images. Endometrial Thickness: 0.45 cm. Right ovary: 3.4 x 1.9 x 1.8 cm (SAG x AP x TRV), calculated volume of 6.1 mL, with normal echotexture. Left ovary: 2.8 x 1.4 x 1.7 cm (SAG x AP x TRV), calculated volume of 3.5mL, with normal echotexture. No free fluid is present. US/US pelvic and transvaginal IMPRESSION: Intrauterine contraceptive device in optimal position.
== END 2023-07-06 10:55 | disposition home or self-care (01) ==
LOC: HO.US 10:54
PROVIDERS: Visit Provider Advanced Practice Midwife
DX: Z30.430 Encounter for insertion of intrauterine contraceptive device (principal); T83.9XXA Unspecified complication of genitourinary prosthetic device, implant and graft, initial encounter
CPT/HCPCS: 58300; 76830; 76856; 81025; J7300

== ENCOUNTER 2023-07-11 11:58 | Outpatient (AMB) | payer OTHER, SELFPAY ==
--- NOTE | 2023-07-11 11:54 | A.OFFVIS_ITS ---
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 She had an IUD a ParaGard placed on 07/06/2023 by this provider it was day 2 of her menses she had given long thought to the method of control she wanted and she wanted to use something with no hormones and she wanted a reliable method of control. After insertion there was a question as to whether not the end of the ParaGard could be visible in the patient's os so she was sent for stat ultrasound which confirmed that the IUD was in fact in the optimal position. The patient has not had any pain with it she has had sex the day after her menses ended. She had sex 2 days ago. She felt the IUD today when she was showering. Before the exam I discussed with the patient that unless and until I confirmed that the IUD was coming out I would not remove it as she had had sex 2 days ago. However when I placed a speculum most of the body of the ParaGard IUD was visible in her os with 1 arm and half of the center part of the IUD visible. The tail strings of the IUD were grasped with long Kellys and easily removed. Discussed with the patient a plan to give Plan B today. Recommend no unprotected sex from this point forward she does try to get her partner's to use condoms but they gave her arguments. She wants to go back on Depo-Provera she did have problems with pain in her joints when she was on Depo in the past but she does not trust herself to remember any method that relies on her to remember. She said that the IUD insertion was very painful and she would not want to try it again any time soon. Plan made for her to get the plan B today and to have the Depo-Provera given tomorrow with a repeat negative test ( test negative today. Appointment made with nurses for tomorrow to give the Depo-Provera prescriptions for Plan B and Depo-Provera sent to [facility] pharmacy [facility] at her request she could not go to the hospital today because she works at 03:00 o'clock. PENDING SALE TO [facility] Medical History Immunization declined control counseling Irregular menstrual bleeding COVID-19 Surgical History No pertinent past surgical history Family History Mother Obese Diabetes mellitus Bronchial asthma Maternal Grandmother Diabetes mellitus Brother Bronchial asthma Social History Housing: Other Patient Tobacco Use Status: Never used Tobacco e-Cigarette/Vaping Use: Never Used service: No Current occupational status: unemployed Hearing needs: No Vision needs: Yes Female Reproductive History Menstrual Age of Menarche: 13 Duration of menses: 3-5 days Date of last menstrual period: 07/05/23 control method: copper IUCD Total pregnancies: 0 Date of last pap smear: 05/31/23 (CARROLL 1) History of abnormal pap smear: Yes Physical Exam Vital Signs: Last Vital Signs BP 90/60 07/11/23 11:59 BMI result Body Mass Index 26.8 Other: Normal external exam speculum placed vagina pink moist nulliparous cervix visualized with plastic body with copper wire visible of ParaGard IUD have extruded. Tail strings of ParaGard grasped with long Cindy forceps and removed with patient giving soft cough atraumatically. Will Rx Plan B to take now and Depo-Provera to start tomorrow then Q 12 weeks teaching done. Patient had ParaGard IUD inserted 5 days ago on day 2 of menses had sex 2 days ago. Results Reviewed Results Reviewed: atient: Luther RayJennifer Alireza MR#: [id number] : 2000 Acct:[id number] Age/Sex: 23 / F ADM Date: 07/06/23 Loc: HO.US Attending Dr: Dina Lanza CNM Ordering Physician: Dina Lanza CNM Date of Service: 07/06/23 Procedure(s): US pelvic and transvaginal Accession Number(s): [id number] cc: Dina Lanza CNM~ EXAMINATION: US PELVIC COMPLETE WITH TV CLINICAL INFORMATION: Evaluate Paragard intrauterine contraceptive device insertion. COMPARISON: None available. TECHNIQUE: Real-time transabdominal and transvaginal ultrasound scanning. FINDINGS: Transabdominal and transvaginal ultrasound examination of the pelvis were performed. Uterus: Anteverted; measuring 7.5 cm in length, 3.0 cm in AP diameter and 3.7 cm in width. Uterine cervix measures 2.3 cm in length. Echotexture: normal sonographic appearance Linear echogenicities corresponding to T shaped intrauterine contraceptive device are seen in optimal position. Endometrium, T-shaped intrauterine contraceptive device and uterus are well-demonstrated on 3-dimensional reconstructed images. Endometrial Thickness: 0.45 cm. Right ovary: 3.4 x 1.9 x 1.8 cm (SAG x AP x TRV), calculated volume of 6.1 mL, with normal echotexture. Left ovary: 2.8 x 1.4 x 1.7 cm (SAG x AP x TRV), calculated volume of 3.5mL, with normal echotexture. No free fluid is present. US/US pelvic and transvaginal IMPRESSION: Intrauterine contraceptive device in optimal position. Dictated By: Judie Hicks Signed By: <Electronically signed by Judie Hicks in OV> 07/06/23 1424 DD/ 1109 Assessment & Plan Assessment & Plan (1) IUD complication: Comment: need to verify correct placement of iud. paragard iud deployed perfectly, however white spot visible in os after.... NOTE PER THE STAT ULTRASOUND THE IUD IS IN OPTIMAL POSITION. 07/11/2023 patient felt IUD coming out. it is indeed penitentiary out, it was removed today, Rx Plan B and Depo-Provera be given tomorrow, with strict condom use for at least 2 weeks. Code(s): T83.9XXA - Unspecified complication of genitourinary prosthetic device, implant and graft, initial encounter (2) Counseling for control, emergency contraceptive prescription: Code(s): Z30.012 - Encounter for prescription of emergency contraception (3) Encounter for IUD removal: Comment: ParaGard IUD inserted on 07/06/2023 on day 2 of menses, was coming out on 07/11/23. Visible penitentiary out of os &fully removed today. Will Rx Plan B now, as patient had sex 2 days ago and Rx Depo-Provera to be given tomorrow with repeat negative test. Code(s): Z30.432 - Encounter for removal of intrauterine contraceptive device (4) Depo-Provera contraceptive status: Code(s): Z30.42 - Encounter for surveillance of injectable contraceptive Plan Patient is here for an IUD checkup. She had an IUD a ParaGard placed on 07/06/2023 by this provider it was day 2 of her menses she had given long thought to the method of control she wanted and she wanted to use something with no hormones and she wanted a reliable method of control. After insertion there was a question as to whether not the end of the ParaGard could be visible in the patient's os so she was sent for stat ultrasound which confirmed that the IUD was in fact in the optimal position. The patient has not had any pain with it she has had sex the day after her menses ended. She had sex 2 days ago. She felt the IUD today when she was showering. Before the exam I discussed with the patient that unless and until I confirmed that the IUD was coming out I would not remove it as she had had sex 2 days ago. However when I placed a speculum most of the body of the ParaGard IUD was visible in her os with 1 arm and half of the center part of the IUD visible. The tail strings of the IUD were grasped with long Kellys and easily removed. Discussed with the patient a plan to give Plan B today. Recommend no unprotected sex from this point forward she does try to get her partner's to use condoms but they gave her arguments. She wants to go back on Depo-Provera she did have problems with pain in her joints when she was on Depo in the past but she does not trust herself to remember any method that relies on her to remember. She said that the IUD insertion was very painful and she would not want to try it again any time soon. Plan made for her to get the plan B today and to have the Depo-Provera given tomorrow with a repeat negative test ( test negative today. Appointment made with nurses for tomorrow to give the Depo-Provera prescriptions for Plan B and Depo-Provera sent to [facility] pharmacy [facility] at her request she could not go to the hospital today because she works at 03:00 o'clock. Full teaching of alternatives and side effects of Depo-Provera which she is aware of but which were reinforced today including increased appetite and weight gain and bone mineralization changes and libido changes. Orders: Orders AMB IUD Insertion/Removal - Patient Supply Today T83.9XXA - Unspecified complication of genitourinary prosthetic device, implant and graft, initial encounter, Z30.012 - Encounter for prescription of emergency contraception, Z30.42 - Encounter for surveillance of injectable contraceptive, Z30.432 - Encounter for removal of intrauterine contraceptive device AMB HCG Urine Test Today Z32.02 - Encounter for test, result negative Medications: New medroxyprogesterone (Depo-Provera) To be given tomorrow 07/12/23, then Q 12 weeks 150 mg IM Q12W 1 mL 5RF levonorgestrel (Plan B One-Step) take today 1.5 mg PO ONCE 1 tab 2RF Coding Level of Care Code Est Pt Level 3 (24055) Diagnoses IUD complication T83.9XXA Counseling for control, emergency contraceptive prescription Z30.012 Encounter for IUD removal Z30.432 Depo-Provera contraceptive status Z30.42
[2023-07-11 11:59] VITALS: BP 90/60; BMI 26.8
== END 2023-07-11 13:12 | disposition home or self-care (01) ==
LOC: HO.HWSM 11:58
PROVIDERS: PCP Internal Medicine; Visit Provider Advanced Practice Midwife
DX: T83.9XXA Unspecified complication of genitourinary prosthetic device, implant and graft, initial encounter (principal); Z30.012 Encounter for prescription of emergency contraception
CPT/HCPCS: 99213

== ENCOUNTER → 2023-07-11 11:58 | Outpatient (BNVA) | payer OTHER, SELFPAY | PROVIDERS: PCP Internal Medicine; Visit Provider Advanced Practice Midwife | DX: Z30.432 Encounter for removal of intrauterine contraceptive device (principal); T83.9XXA Unspecified complication of genitourinary prosthetic device, implant and graft, initial encounter; Z30.42 Encounter for surveillance of injectable contraceptive; Z30.012 Encounter for prescription of emergency contraception | CPT/HCPCS: 99212 ==

== ENCOUNTER 2023-07-12 11:15 | Outpatient (AMB) | payer OTHER, SELFPAY ==
[2023-07-12 11:43] VITALS: BMI 26.5
--- NOTE | 2023-07-12 11:43 | AM.OFFVISNUR ---
Intake Vital Signs 07/12/23 11:43 Height 5 ft 1 in Weight 140 lb 8 oz BMI 26.5 Intake Visit Reasons: DEPO Intake Note: Pt is here for initiation of Depo provera injection. 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 She was seen by Dina 07/11/23 and had negative UPT. She was prescribed Plan B 07/11/23 as well. LMP 07/05/23. She had attempted Paragard insertion 07/06/23 which had to be removed 07/11/23 d/t device not in correct position. Pt declined a second attempt of insertion as it was very painful the previous time. Pt tolerated injection well. She was advised to use a BUM of BC x2 weeks. Pt will schedule next injection in 12 weeks. Pt verbalizes understanding and agrees with plan. No further questions. Office Procedures Depo Questionnaire If YES to any of the following questions, please consult a provider. Date of last menstrual period: 07/05/23 test in office results: Negative Irregular bleeding?: No Breast lumps or other breast changes?: No Changes in weight or appetite?: No Depression or changes in mood?: No Abnormal hair growth or loss?: No Skin problems (rash, acne, discoloration)?: No Pain at the injection site?: No Headaches?: No Nervousness?: No Abdominal pain or cramping?: No Dizziness or nausea?: No Fatigue or weakness?: No Decrease in sexual drive?: No Chest pain or shortness of breath?: No Swelling in arms or legs?: No Form completed by?: Radha Lopez social scientist Meds Depo-Provera 150 mg/mL intramuscular syringe Performing Provider: Dina Lanza CNM Performing Location: [facility] Administered by: Radha Lopez on 07/12/23 11:52 Dose Route Admin Location Dispensed Lot Number Expiration Date ND [employer] 150 mg IM LGM 1 mL [id number] 08/12/25 50476-942-76 [facility] Coding Level of Care Code Established Pt Est Pt Level 1 (97078) Patient Type Established History Problem Focused Medical Decision Making Straight Forward Time Spent (min) 17 Assessment & Plan Assessment & Plan Plan Use BUM of BC x2 weeks. Schedule next injection in 12 weeks. Orders: Orders AMB Medroxyprogesterone Injection Patient Supplied Today Z30.42 - Encounter for surveillance of injectable contraceptive
== END 2023-07-12 11:35 | disposition home or self-care (01) ==
LOC: HO.HWS 11:16
PROVIDERS: PCP Internal Medicine; Visit Provider Advanced Practice Midwife
DX: Z30.42 Encounter for surveillance of injectable contraceptive (principal)

== ENCOUNTER → 2023-07-12 11:15 | Outpatient (BNVA) | payer OTHER, SELFPAY | PROVIDERS: PCP Internal Medicine; Visit Provider Advanced Practice Midwife | DX: Z30.42 Encounter for surveillance of injectable contraceptive (principal) | CPT/HCPCS: 96372; 99211; J1050 ==

== ENCOUNTER 2024-02-11 20:15 | Emergency (ER) | payer OTHER, SELFPAY ==
[2024-02-11 20:41] VITALS: BP 110/67; PULSE 112; RESP 18; TEMP 37.5; O2SAT 97; BMI 27.3
--- NOTE | 2024-02-12 00:29 | ED.SKABFB ---
HPI - Skin/Abscess/Foreign Bdy General Chief complaint: Skin/Abscess/Foreign Body Stated complaint: lump on tailbone Time Seen by Provider: 02/12/24 00:00 Source: patient Limitations: no limitations History of Present Illness ED Provider: Danielle Roland PA-C HPI narrative: 23-year-old female presents with a buttock abscess x1 week. Patient states she has had a ?firm lump?, on the left buttock for years. Over the past week, it has become increasingly tender, swollen and red. Denies fever. Related Data Home Medications ?Medication ?Instructions ?Recorded ?Confirmed copper 380 square mm intrauterine intrauterine 07/11/23 07/11/23 device (ParaGard T 380A) Previous Rx's ?Medication ?Instructions ?Recorded levonorgestrel 1.5 mg tablet (Plan 1.5 mg PO ONCE #1 tab 07/11/23 B One-Step) medroxyprogesterone 150 mg/mL 150 mg IM Q12W #1 mL 07/11/23 intramuscular suspension (Depo-Provera) doxycycline monohydrate 100 mg 100 mg PO BID #14 caps 02/12/24 capsule Allergies Allergy/AdvReac Type Severity Reaction Status Date / Time No Known Allergies Allergy Verified 02/11/24 20:45 Review of Systems Review of Systems: Yes all other systems are reviewed and are negative Constitutional: Constitutional: Denies fever(s) Cardiovascular: Cardiovascular: Reports chest pain Gastrointestinal: Gastrointestinal: Denies abdominal pain, Denies diarrhea and Denies vomiting PMFSH Past Medical History Attestation statement: The following information was validated with the patient. Medical History Immunization declined control counseling Irregular menstrual bleeding COVID-19 Surgical History No pertinent past surgical history Family History Family History Mother Obese Diabetes mellitus Bronchial asthma Maternal Grandmother Diabetes mellitus Brother Bronchial asthma Social History Social History Housing: Other Patient Tobacco Use Status: Never used Tobacco e-Cigarette/Vaping Use: Never Used Advance Directives: No Advance Directives Information Provided: Yes Do you have a plan to hurt others: No Plan service: No Current occupational status: unemployed Hearing needs: No Vision needs: Yes Physical Exam Vital Signs: Vital Signs: Last Vital Signs Temp 99.5 F 02/11/24 20:41 Pulse 112 H 02/11/24 20:41 Resp 18 02/11/24 20:41 BP 110/67 02/11/24 20:41 Pulse Ox 97 02/11/24 20:41 O2 Del Method Room Air 02/11/24 20:41 BMI result Body Mass Index 27.3 Const: Other: Alert, well in appearance Orientation/consciousness: patient oriented x3 Resp: Effort & Inspection: normal respiratory effort Cardio: Other: Normal peripheral perfusion GI: Other: Tender, fluctuant swelling noted along superior left buttock crease with overlying erythema Skin: Other: Warm dry no rash Neuro: General: patient oriented x3, no focal motor deficits and CN's II-XI intact bilaterally Psych: Other: Calm cooperative Medical Decision Making Medical Decision Making MDM Narrative: 23-year-old female presents with a buttock abscess x1 week. Patient states she has had a ?firm lump?, on the left buttock for years. Over the past week, it has become increasingly tender, swollen and red. Denies fever. No relevant chronic issues History: Per patient I have considered the following differential diagnoses: Cellulitis, purulent cellulitis, abscess, pilonidal cyst Plan: I believe the patient has an infected pilonidal cyst. The abscess was I and D. We will place on doxy. I told the patient she needs to follow up with a general surgeon to have the cyst removed, otherwise it will likely recur. She will follow up with her primary care provider. We will send with home care instructions. No indication for labs or imaging. Procedures Abscess I/D Site: marleny-rectal Side (if applicable): left Sedation/analgesia: none Local Anesthetic: with epi Amount of anesthesia used (mL): 10 Technique: incised with blade Amount of fluid expressed (mL): 20 Sent for culture/gram staining?: No Irrigation: Yes Packing used?: iodoform Discharge Plan Discharge Clinical Impression: Abscess, Cyst, pilonidal, with abscess Patient Disposition: Home, Self-Care Instructions: Pilonidal Cyst (ED), Abscess (ED) Additional Instructions: I believe you have a pilonidal cyst that became infected. It was drained today in the emergency department. See home care instructions. You should apply warm compresses to the site twice a day. You can remove the drain in 24 hours. You need to follow up with your primary care provider for referral to a general surgeon to have the cyst removed. It will likely recur. Take the doxycycline as directed. Prescriptions: New doxycycline monohydrate 100 mg capsule 100 mg PO BID Qty: 14 0RF No Action ParaGard T 380A 380 square mm intrauterine device intrauterine levonorgestrel [Plan B One-Step] 1.5 mg tablet 1.5 mg PO ONCE Qty: 1 2RF Rx Instructions: take today medroxyprogesterone [Depo-Provera] 150 mg/mL suspension 150 mg IM Q12W Qty: 1 5RF Rx Instructions: To be given tomorrow 07/12/23, then Q 12 weeks Stand Alone Forms: Work/School Release Print Language: Macedonian
[2024-02-12] MEDS: Doxycycline Monohydrate 100 MG CAPSULE PO (01:36)
[2024-02-12 01:40] VITALS: BP 118/58; PULSE 98; RESP 16; TEMP 37.2; O2SAT 97
== END 2024-02-12 01:41 | disposition home or self-care (01) ==
PROVIDERS: Emergency Provider Emergency Medicine; PCP Internal Medicine
DX: L05.01 Pilonidal cyst with abscess (principal)
CPT/HCPCS: 10080; 99282; 99283; 99284

== ENCOUNTER 2024-05-01 14:12 | Outpatient (AMB) | payer OTHER, SELFPAY ==
--- NOTE | 2024-05-01 14:32 | MHC.OFFWIV ---
Intake Vital Signs 05/01/24 14:34 Weight 148 lb BP 110/68 Blood Pressure Location Rt brachial Position Sitting Pulse 70 Pulse Source Pulse Oximeter Pulse Oximetry (%) 100 Oxygen Delivery Method Room Air Intake Visit Reasons: EP dizzy since vomiting on monday Intake Note: Patient here for Vomiting that started Monday after eating [employer], she states she has had diarrhea and dizziness and only feels well when she is sitting and not moving. Patient Tobacco Use Status: Never used Tobacco Allergies No Known Allergies Allergy (Verified 05/01/24 14:35) Do you need a note to return to daycare/school/sports/work: No HPI EP dizzy since vomiting on monday HPI Details This note is constructed using voice recognition software. While every effort has been made to ensure accuracy, pilot captain errors may have been included. The patient is a 23 year old female who presents to the clinic today with nausea, vomiting, diarrhea. She notes that on Monday she had chicken nuggets at [employer], she later developed a fever, nausea, vomiting, diarrhea. The nausea and vomiting have subsided. The diarrhea persists, however is only once this morning. She has been hydrating. She has been resting when she is not working, however has not taken any time off work. The fever has since resolved. She reports that she never actually checked the temperature. She denies any abdominal pain. [facility] Medical History Immunization declined control counseling Irregular menstrual bleeding COVID-19 Surgical History No pertinent past surgical history Family History Mother Obese Diabetes mellitus Bronchial asthma Maternal Grandmother Diabetes mellitus Brother Bronchial asthma Social History Housing: Other Patient Tobacco Use Status: Never used Tobacco e-Cigarette/Vaping Use: Never Used service: No Current occupational status: unemployed Hearing needs: No Vision needs: Yes Female Reproductive History Menstrual Age of Menarche: 13 Review of Systems Const All systems reviewed & are unremarkable except as noted in HPI and below Physical Exam Vital Signs: Last Vital Signs Pulse 70 05/01/24 14:34 BP 110/68 12/18/24 14:34 Pulse Ox 100 05/01/24 14:34 Oxygen Delivery Method Room Air 05/01/24 14:34 Const General: cooperative, healthy appearing, comfortable, no acute distress and well developed Orientation/consciousness: patient oriented x3 Limitations: no limitations HEENT Head: Yes normal to inspection Ears: hearing grossly normal bilaterally General nose exam: Normal external nose present Face and sinus: Yes normal facial exam Eyes General: appearance normal, both eyes and all related structures Neck Neck: Yes normal visual inspection and Yes full ROM Resp Effort & Inspection: normal respiratory effort and able to speak in complete sentences Auscultation: clear to auscultation bilaterally Cardio Rate: regular rate Rhythm: regular rhythm Heart sounds: normal S1 and S2 GI Inspection: Yes normal to inspection Palpation (GI): Soft to palpation and nontender Skin General skin exam: no rashes or lesions noted Neuro General: patient oriented x3 Extrem General: Yes normal to inspection Assessment & Plan Assessment & Plan (1) Viral gastroenteritis: Code(s): A08.4 - Viral intestinal infection, unspecified Plan: Advised ongoing efforts towards hydration, and home from work until 24 hours without episode of diarrhea. Advised follow up as needed with failure to resolve or worsening symptoms. Plan See above for full details and plan. Coding Level of Care Code Est Pt Level 3 (87354) Diagnoses Viral gastroenteritis A08.4
[2024-05-01 14:34] VITALS: BP 110/68; PULSE 70; O2SAT 100
== END 2024-05-01 14:51 | disposition home or self-care (01) ==
PROVIDERS: PCP Internal Medicine; Visit Provider Registered Nurse
DX: A08.4 Viral intestinal infection, unspecified (principal)

== ENCOUNTER → 2024-05-01 14:12 | Outpatient (BNVA) | payer OTHER, SELFPAY | PROVIDERS: PCP Internal Medicine; Visit Provider Registered Nurse | DX: A08.4 Viral intestinal infection, unspecified (principal) | CPT/HCPCS: 99212 ==

== ENCOUNTER 2024-06-13 14:28 | Outpatient (AMB) | payer OTHER, SELFPAY ==
[2024-06-13 14:37] VITALS: BP 98/78; PULSE 92; TEMP 36.4; O2SAT 97; BMI 28.7
--- NOTE | 2024-06-13 14:37 | MHC.PC.OV ---
Vital Signs 06/13/24 14:37 Height 5 ft 1 in Weight 152 lb BMI 28.7 BP 98/78 Blood Pressure Location Rt brachial Position Sitting Pulse 92 Pulse Source Pulse Oximeter Temp 97.6 F Temp Source Oral Pulse Oximetry (%) 97 Oxygen Delivery Method Room Air Intake Visit Reasons: pe Intake Note: Pt is here today for her PE: last papsmear 05/31/23 Is last menstrual period known: Yes Last menstrual period: 05/18/24 Allergies No Known Allergies Allergy (Verified 06/13/24 14:53) Medication List - Last Reconciled 06/13/24 by Araceli De MD norgestrel (Opill) 1 tab PO DAILY Tobacco use date assessed: 06/13/24 Dental Screening Dental Screen Date: 06/13/24 Did you have a dental visit in the last 12 months?: Yes Did you have a dental problem in the last 6 months where you did not have access to dental care?: No Was dental information given to patient?: Patient has dentist HPI pe HPI Details 23-year-old lady here today for physical exam. She is up-to-date with her cervical cancer screening and pelvic exam, goes to [facility]. Last Pap smear was in 2023 which came back for Low grade squamous intraepithelial lesion (CARROLL I). Has an appointment already with Dina Lanza September 2024 She had a fasting lipid panel done which showed elevated LDL cholesterol. Has a mass in right side of sacral area near coccyx, which has been present now for the last several months. Initially was swollen and painful, was seen at the ER in 01/2024 and was prescribed antibiotics with resolution of pain but mass still present. [facility] Medical History Immunization declined control counseling Irregular menstrual bleeding COVID-19 Surgical History No pertinent past surgical history Family History Mother Obese Diabetes mellitus Bronchial asthma Maternal Grandmother Diabetes mellitus Brother Bronchial asthma Social History Housing: Other Patient Tobacco Use Status: Never used Tobacco e-Cigarette/Vaping Use: Never Used service: No Current occupational status: unemployed Hearing needs: No Vision needs: Yes Female Reproductive History Menstrual Age of Menarche: 13 Date of last menstrual period: 05/18/24 control method: pills Other: Goes to [facility] for her routine Pap and pelvic exam Questionnaire PHQ-9 Over the last 2 weeks, how often have you been bothered by any of the following problems? 1. Little interest or pleasure in doing things: not at all 2. Feeling down, depressed, or hopeless: not at all 3. Trouble falling or staying asleep, or sleeping too much: not at all 4. Feeling tired or having little energy: several days 5. Poor appetite or overeating: not at all 6. Feeling bad about yourself - or that you are a failure or have let yourself or your family down: not at all 7. Trouble concentrating on things, such as reading the newspaper or watching television: not at all 8. Moving or speaking so slowly that other people could have noticed. Or the opposite - being so fidgety or restless that you have been moving around a lot more than usual: not at all 9. Thoughts that you would be better off or of hurting yourself in some way: not at all Total score: 1 Depression Screening Interpretation: Negative Depression Screening Done: Yes 31957 - PHQ-9 Billing: Yes Source: Developed by Drs. Sage Lee, Lauren Chavez, Dick Durán and colleagues, with an educational stuart from [employer]. Thrive Questionnaire Date Thrive assessed: 06/13/24 I am a: Patient What is your living situation today?: I have a steady place to live Within the past 12 months, did the food you bought not last and you didn't have the money to get more?: Sometimes True Within the past 12 months, did you worry whether your food would run out before you got money to buy more?: Never true Do you have trouble paying for medicines?: No Do you have trouble getting transportation to medical appointments?: No Do you have trouble paying your heating and electricity bill?: No Do you have trouble taking care of your child, family member or friend?: No Do you have trouble with day-to-day activities such as bathing, preparing meals, shopping, managing finances, etc.?: No Are you currently unemployed and looking for a job?: Yes Are you interested in more education?: Yes Please select the resources that you would like help with: None Currently or been in a relationship where the following occur: I choose not to answer THRIVE Score: 1 AUDIT C Alcohol Use Questionnaire (AUDIT-C) 1. How often do you have a drink containing alcohol?: Never Total Score: 0 ISABELLA-7 AMB Questionnaire ISABELLA-7 Date ISABELLA - 7 assessed: 06/13/24 Feeling nervous, anxious, or on edge: 0 = Not at all Not being able to stop or control worryin = Not at all Worrying too much about different things: 0 = Not at all Trouble relaxin = Not at all Being so restless that it is hard to sit still: 0 = Not at all Becoming easily annoyed or irritable: 0 = Not at all Feeling afraid as if something awful might happen: 0 = Not at all Total ISABELLA-7 score (0-4 normal; 5-9 mild; 10-14 moderate; 15-21 severe): 0 Source: Developed by Drs. Sage Lee, Lauren Chavez, Dick Durán and colleagues, with an educational stuart from [employer]. ISABELLA-7 Assessment Billing ISABELLA-7 Assessment Tool: ISABELLA-7 Assessment 27630 Review of Systems Const Denies body aches, Denies fatigue, Denies fever(s) and Denies malaise Eyes Reports requires corrective lenses ENT Denies nasal congestion, Denies nasal discharge, Denies post nasal drip and Denies sore throat Card Denies chest pain, Denies rapid heart rate, Denies lightheadedness, Denies palpitations and Denies dyspnea Resp Denies chest congestion, Denies cough, Denies dyspnea and Denies wheezing GI Denies abdominal pain, Denies change in bowel habits and Denies heartburn Reports as per HPI, Denies hematuria, Denies urinary frequency, Denies dysuria and Denies urinary urgency Musc Reports no additional complaints Skin/Breast Reports as per HPI, Denies breast pain, Denies breast mass and Denies rash Neuro Reports no additional complaints Psych Reports no additional complaints Endo Denies fatigue, Denies polydipsia, Denies polyuria and Denies palpitations Jewel/Lymph Denies easy bleeding and Denies easy bruising Aller/Immun Denies seasonal rhinorrhea and Denies wheezing Physical exam (Primary Care) Vital Signs: Last Vital Signs Temp 97.6 F 06/13/24 14:37 Pulse 92 06/13/24 14:37 BP 98/78 06/13/24 14:37 Pulse Ox 97 06/13/24 14:37 Oxygen Delivery Method Room Air 06/13/24 14:37 BMI result Body Mass Index 28.7 Tobacco/Smoking Status: Tobacco use Status Tobacco use date assessed 06/13/24 06/13/24 14:40 Patient Tobacco Use Status Never used Tobacco 06/13/24 14:40 e-Cigarette/Vaping Use Never Used 06/13/24 14:40 PHQ-9: PHQ-9 Score PHQ-9: Total score 2 06/13/24 14:40 Depression Screening Interpretation: Negative Thrive Assessment: Date of Thrive Assessment Date Thrive assessed 06/13/24 06/13/24 14:40 Currently or been in a relationship where the following occur: I choose not to answer Const General: comfortable and no acute distress Nutritional Appearance: overweight Orientation/consciousness: patient oriented x3 HENMT Head: Yes normocephalic Ears: hearing grossly normal bilaterally, external ears normal, TM's normal bilaterally and EAC's normal General nose exam: Normal external nose present Face and sinus: Yes face symmetric Mouth: Normal oral and palatal mucosa present, oropharynx normal and moist mucous membranes Eyes General: appearance normal, both eyes and all related structures Neck Other: Nonpalpable thyroid gland Neck: Yes full ROM, Yes no lymphadenopathy and Yes supple Chest Chest palpation & inspection: normal inspection of the chest and normal palpation of entire chest wall Breast/axilla inspection: normal inspection of the breasts and normal inspection of the axillae Breast/axilla palpation: normal palpation of the breasts Resp Effort & Inspection: normal respiratory effort and able to speak in complete sentences Auscultation: clear to auscultation bilaterally Cardio Rate: regular rate Rhythm: regular rhythm Heart sounds: S1 normal heart sound present and S2 normal heart sound present GI Inspection: Yes normal to inspection Palpation (GI): Soft to palpation, nontender, no guarding and no masses Auscultation: normal bowel sounds General: Yes no CVA tenderness and Yes deferred (Has appointment already scheduled with [facility] in September 2024) Back/Spine/Pelvis Back: no CVA tenderness and No back tenderness Cervical Spine: normal cervical lordosis and cervical ROM normal Thoracic/Lumbar Spine: thoracic and lumbar spine normal to inspection Sacrum: other (Fluctuant nontender mass on left sacral coccygeal area, nontender) Skin General skin exam: no rashes or lesions noted Neuro General: patient oriented x3, gait normal, tone normal, moves all extremities, Normal light touch and pain sensation, no focal motor deficits and CN's II-XI intact bilaterally Cognition (Neuro): normal cognition Gait exam (Neuro): Normal gait present Motor exam (neuro): 5/5 motor strength present throughout Extrem General: Yes normal to inspection, Yes full ROM and Yes no joint enlargement Psych Appearance: grossly normal and well kempt Mental Status: mental status grossly normal Speech and movement: Normal speech and movement present Affect: normal affect Attitude: cooperative Thought process: Normal thought process present Thought content: Normal thought content present Coding Level of Care Code Est Pt Prev Care 18-39y(49899) Diagnoses Annual visit for general adult medical examination with abnormal findings Z00.01 Mass of sacrum M53.3 Additional Codes PHQ-9 - 36590 - PHQ-9 Billing: Yes ([id number]) ISABELLA-7 Assessment Billing - ISABELLA-7 Assessment Tool: ISABELLA-7 Assessment 89148 ([id number]) Assessment & Plan Assessment & Plan (1) Annual visit for general adult medical examination with abnormal findings: Code(s): Z00.01 - Encounter for general adult medical examination with abnormal findings Plan: Will check appropriate labs. Continue with regular dental visit every 6 months and regular eye exams, at least every 2 years. Take adequate calcium in diet and vitamin-D 3 at 2000 IU per cap once a day, in addition to weight-bearing exercises to help maintain good muscle tone and weight control. Instructed to do self-breast exam, and start t yearly mammogram at age 41. Patient does not want to get any vaccines. She already has an appointment for her annual pelvic exam and cervical cancer screening on September 2024 with Dina Lanza at [facility]. (2) Mass of sacrum: Code(s): M53.3 - Sacrococcygeal disorders, not elsewhere classified Category: Medical Plan: Referral to Dr. Manzo for further evaluation management Orders: Orders Vitamin B12 and Folate Today E78.5 - Hyperlipidemia, unspecified, Z00.01 - Encounter for general adult medical examination with abnormal findings, Z13.1 - Encounter for screening for diabetes mellitus, Z86.39 - Personal history of other endocrine, nutritional and metabolic disease AMB Fasting Glucose Today E78.5 - Hyperlipidemia, unspecified, Z00.01 - Encounter for general adult medical examination with abnormal findings, Z13.1 - Encounter for screening for diabetes mellitus, Z86.39 - Personal history of other endocrine, nutritional and metabolic disease Hemoglobin and Hematocrit Today E78.5 - Hyperlipidemia, unspecified, Z00.01 - Encounter for general adult medical examination with abnormal findings, Z13.1 - Encounter for screening for diabetes mellitus, Z86.39 - Personal history of other endocrine, nutritional and metabolic disease Vitamin D 25-OH Total Today E78.5 - Hyperlipidemia, unspecified, Z00.01 - Encounter for general adult medical examination with abnormal findings, Z13.1 - Encounter for screening for diabetes mellitus, Z86.39 - Personal history of other endocrine, nutritional and metabolic disease Lipid Panel Today E78.5 - Hyperlipidemia, unspecified, Z00.01 - Encounter for general adult medical examination with abnormal findings, Z13.1 - Encounter for screening for diabetes mellitus, Z86.39 - Personal history of other endocrine, nutritional and metabolic disease Basic Metabolic Panel Fasting Today E78.5 - Hyperlipidemia, unspecified, Z00.01 - Encounter for general adult medical examination with abnormal findings, Z13.1 - Encounter for screening for diabetes mellitus, Z86.39 - Personal history of other endocrine, nutritional and metabolic disease Aspartate Amino Transferase Today E78.5 - Hyperlipidemia, unspecified, Z00.01 - Encounter for general adult medical examination with abnormal findings, Z13.1 - Encounter for screening for diabetes mellitus, Z86.39 - Personal history of other endocrine, nutritional and metabolic disease Referrals General Surgery Referral M53.3 - Sacrococcygeal disorders, not elsewhere classified
--- OUTSIDE RECORDS SUMMARY | 2024-06-13 18:25 | XMS_ITS | Continuity of Care Document ---
Author Organization [facility] In [facility] Address [address] [place] [address] Care Team Providers Care Barrel Inspector Name Role Phone Nicolette Le MD Unavailable [...] A1C LEVEL LT 7.0% OFFICE/OUTPATIENT VISIT, [facility] Advance Directives Directive Yes / No [...] Diagnoses Date Provider Providers Copied on Encounter [address], [id number] , [facility] Impaired glucose tolerance 2 Mimi Sew[address]. [address], [place], [place], [id number], [place]. tel:[phone] Referring Provider: Des[address], [place], [address] . 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 . Referring Provider: Desir[address], [place], [address] . tel:[phone] OFFICE/OUTPA TIENT VISIT, [address], [id number] , [facility] Exposure to Mononucleosis (chief complaint) Body mass index [BMI] 27.0-27.9, adultEncounter for screening for diabetes mellitusEncntr screen for infections w sexl mode of transmissEncoun ter for screening for lipoid disordersExerci se counselingDieta ry counseling and surveillanceFam cassie history of diabetes mellitusEncount er for screening for other viral diseasesPrediab etes 2 Mimi Sewell. [address], [place], [place], [id number], [place]. tel:[phone] Referring Provider: Nicolette Le, [address], [place], [address] . tel:[phone] Family History Family Member Type Diagnosis Age At Onset Father Problem Diabetes mellitus Mother Problem Diabetes mellitus Payers Payer name Insurance type Covered republican ID Authoryunior hawthorne(s) Medicaid [facility] FMD Members Only CI [id number] Social History Type Description Quantity Date Captured Comments Alcohol Use Details No Caffeine Use Details Tobacco Use Status No Information Smoking Status Never smoker Non-Smoking Tobacco Use Details : No Details Available : No Details Available Sex Female Chief Complaint And Reason For Visit No Information Reason For Referral Reason For Referral No Information Plan Of Treatment Date Type Action Status Goal HPV (). Due on due Goal Td vaccine. Due on due Goal Lipid panel. Due on 027 due Goal Depression scree ana. Due on due Goal Influenza vaccine. Due on due Goal Tdap. Due on due Goal Fluoride varnish application. Due on due Goal HPV (1st). Due on due Goal Td vaccine. Due [...] Future Order: Lab Order HEMOGLOB IN A1C ([id number]), Added on: New History Of Present Illness [...] Mental Status Date Cognitive Assessment Orientation - [place] ed to time, place, person, situation. Patient Care Teams Name Effective Dates (start - stop) Status Members No Information
== END 2024-06-13 15:20 | disposition home or self-care (01) ==
PROVIDERS: PCP Internal Medicine; Visit Provider Internal Medicine
DX: Z00.01 Encounter for general adult medical examination with abnormal findings (principal); M53.3 Sacrococcygeal disorders, not elsewhere classified

== ENCOUNTER → 2024-06-13 14:28 | Outpatient (BNVA) | payer OTHER, SELFPAY | PROVIDERS: PCP Internal Medicine; Visit Provider Internal Medicine | DX: Z00.01 Encounter for general adult medical examination with abnormal findings (principal); M53.3 Sacrococcygeal disorders, not elsewhere classified | CPT/HCPCS: 96127; 99395 ==

== ENCOUNTER 2024-06-15 08:44 | Outpatient (REF) | payer OTHER, SELFPAY ==
[2024-06-15 12:09] LABS: Hematocrit 42.7 % (37.0-47.0); Hemoglobin 14.3 g/dl (12.0-16.0)
[2024-06-15 12:19] LABS: Anion Gap 11 (12-20); Aspartate Amino Transferase 25 U/L (5-31); Blood Urea Nitrogen 11 mg/dL (9-16); Carbon Dioxide 26 mmol/L (22-29); Chloride 106 mmol/L (96-108); Cholesterol 186 mg/dL (<200); Estimated Glomerular Filt Rate > 60; Glucose Fasting 86 mg/dL (60-99); HDL Cholesterol 37 mg/dL (>40); LDL Cholesterol Calculated 138 mg/dL (<100); Potassium 4.2 mmol/L (3.3-5.1); Sodium 139 mmol/L (135-145); Triglycerides 57 mg/dL (<150)
[2024-06-15 12:34] LABS: Vitamin D 25-OH Total 30.7 ng/mL (>30)
[2024-06-15 12:43] LABS: Folate 5.3 ng/mL (> or = 4.0); Vitamin B12 196 pg/mL (200-900)
[2024-06-22 08:34] LABS: Methylmalonic Acid 135 nmol/L (55-335)
[2024-06-24 13:04] LABS: Intrinsic Factor Antibodies Negative (Negative)
== END 2024-06-15 08:45 | disposition home or self-care (01) ==
LOC: HO.HMGCLDS 08:44
PROVIDERS: PCP Internal Medicine; Visit Provider Internal Medicine
DX: Z00.01 Encounter for general adult medical examination with abnormal findings (principal); E78.5 Hyperlipidemia, unspecified; Z13.1 Encounter for screening for diabetes mellitus; Z86.39 Personal history of other endocrine, nutritional and metabolic disease; E53.8 Deficiency of other specified B group vitamins
CPT/HCPCS: 36415; 80048; 80061; 82306; 82607; 82746; 83921; 84450; 85014; 85018; 86340

== ENCOUNTER 2024-07-12 15:57 | Outpatient (REF) | payer MEDICAID, SELFPAY ==
--- OUTSIDE RECORDS SUMMARY | 2024-07-13 11:58 | XMS_ITS | Continuity of Care Document ---
Author Organization [facility] In c RADIOLOGY TECH [facility] Address [address] [place] [address] Care Team Providers Care Nail Specialist Name Role Phone Nicolette Le MD Unavailable [...] HG A1C LEVEL LT 7.0% OFFICE/OUTPATIENT VISIT, [facility] Advance Directives Directive Yes / No Effective [...] Diagnoses Date Provider Providers Copied on Encounter [address], [id number] , [facility] Impaired glucose tolerance 2 Mimi Sewell. [address], [place], [place], [id number], [place]. tel:[phone] Referring Provider: Des[address], [place], [address] . tel:[phone], [id number] , [facility] No Information 2 Nurse Nurse. . Referring Provider: Desir[address], [place], [address] . tel:[phone] OFFICE/OUTPA TIENT VISIT, [address], [id number] , [facility] Exposure to Mononucleosis (chief complaint) Body mass index [BMI] 27.0-27.9, adultEncounter for screening for diabetes mellitusEncntr screen for infections w sexl mode of transmissEncoun ter for screening for lipoid disordersExerci se counselingDieta ry counseling and surveillanceFam cassie history of diabetes mellitusEncount er for screening for other viral diseasesPrediab etes 2 Mimi Sewell. [address], [place], [place], [address], [place]. tel:[phone] Referring Provider: Nicolette Le, [address], [place], [address] . tel:[phone] Family History Family Member Type Diagnosis Age At Onset Father Problem Diabetes mellitus Mother Problem Diabetes mellitus Payers Payer name Insurance type Covered green party ID Authoryunior hawthorne(s) Medicaid [facility] FMD Members Only CI [id number] Social History Type Description Quantity Date Captured [...] Future Order: Lab Order HEMOGLOB IN A1C ([id number]), Added on: New History Of Present Illness Encounter Date Complaint History Of Prese nt Illness Exposure to Mononucleosis The sy mptoms began 3 weeks ago. She states the symptoms are acute and are unchanged. Exposure to Mononucleosis , roommate has it & she wants to get ifrah jsee; denies fatigue, abdominal pain or fever. Functional [...] Mental Status Date Cognitive Assessment Orientation - [place] ed to time, place, person, situation. Patient Care Teams Name Effective Dates (start - stop) Status Members No Information
[2024-07-13 16:13] LABS: Bacterial Vaginosis PCR POSITIVE (Negative); Candida Group PCR DETECTED (Not Detect); Candida glab krusei PCR NOT DETECTED (Not Detect); Trichomonas vaginalis PCR NOT DETECTED (Not Detect)
[2024-07-13 16:44] LABS: CT PCR NOT DETECTED (Not Detect.); NG PCR NOT DETECTED (Not Detect.)
== END 2024-07-12 15:58 | disposition home or self-care (01) ==
LOC: HO.LNP 15:57
PROVIDERS: PCP Internal Medicine; Visit Provider Physician Assistant Medical
DX: N89.8 Other specified noninflammatory disorders of vagina (principal)
CPT/HCPCS: 81003; 81025; 81515; 87491; 87591; 99212

== ENCOUNTER 2024-07-12 15:57 | Outpatient (AMB) | payer MEDICAID, SELFPAY ==
[2024-07-12 16:00] VITALS: BP 120/80; PULSE 82; O2SAT 98; BMI 28.7
--- NOTE | 2024-07-12 16:00 | AM.OFFWIN_ITS ---
Intake Vital Signs 07/12/24 16:00 Height 5 ft 1 in Weight 152 lb BMI 28.7 BP 120/80 Blood Pressure Location Lt brachial Position Sitting Pulse 82 Pulse Source Pulse Oximeter Pulse Oximetry (%) 98 Oxygen Delivery Method Room Air Intake Visit Reasons: EP-?uti Intake Note: Patient here for lower abdominal pain/pulses, frequency and burning sensation t hat has been present for a couple of days. Patient Tobacco Use Status: Never used Tobacco Allergies No Known Allergies Allergy (Verified 07/12/24 16:06) Do you need a note to return to daycare/school/sports/work: No HPI HPI Comments History of Present Illness Details This is a 24-year-old female who presented to the walk-in clinic complaining of intermittent episodes of lower abdominal/pelvic discomfort, dysuria, and urinary frequency. She states this does not happen every time she urinates but it has been happening intermittently over the past several weeks. She reports scant vaginal discharge, which is not abnormal for her. She denies any fevers or chills. She denies any flank pain. She is sexually active. She is requesting test and urine test to rule out UTI. [facility] Medical History (Updated 06/24/24 @ 23:52 by Araceli De MD) Vitamin B12 deficiency Dyslipidemia Immunization declined control counseling Irregular menstrual bleeding COVID-19 Surgical History No pertinent past surgical history Family History Mother Obese Diabetes mellitus Bronchial asthma Maternal Grandmother Diabetes mellitus Brother Bronchial asthma Social History Housing: Other Patient Tobacco Use Status: Never used Tobacco e-Cigarette/Vaping Use: Never Used service: No Current occupational status: unemployed Hearing needs: No Vision needs: Yes Female Reproductive History Menstrual Age of Menarche: 13 Review of Systems Const All systems reviewed & are unremarkable except as noted in HPI and below Reports no additional complaints Eyes Reports no additional complaints ENT Reports no additional complaints Card Reports no additional complaints Resp Reports no additional complaints GI Reports no additional complaints Reports no additional complaints Musc Reports no additional complaints Skin/Breast Reports system reviewed and no additional complaints, except as documented Neuro Reports no additional complaints Psych Reports no additional complaints Endo Reports no additional complaints Jewel/Lymph Reports no additional complaints Aller/Immun Reports no additional complaints Physical Exam Vital Signs: Last Vital Signs Pulse 82 07/12/24 16:00 BP 120/80 07/12/24 16:00 Pulse Ox 98 07/12/24 16:00 Oxygen Delivery Method Room Air 07/12/24 16:00 BMI result Body Mass Index 28.7 Const Other: Vital signs reviewed. Constitutional: Non-toxic appearing. No acute distress. Well-developed and well-nourished. HEENT: Normocephalic and atraumatic. Skin: Warm and dry. No rashes or lesions noted. Neck: Full and painless range of motion. No cervical lymphadenopathy. Cardio: Regular rate. No lower extremity edema. No JVD. Pulmonary: No respiratory distress. No accessory muscle usage. Gastrointestinal: Soft, nontender, and nondistended in all 4 quadrants. Genitourinary: No CVA tenderness. Musculoskeletal: Normal range of motion in joints throughout the body. No deformity or other signs of injury. Neuro: Alert and oriented x4. Cranial nerves 2-12 grossly intact. No focal deficits appreciated. Psych: Normal mood and affect. Results AMB Test Urine AMB Test Urine Negative Last Edit by Kathy Douglas CCM on 07/12/24 16:14 AMB Urinalysis, Automated UA Leukoctes 0 Anjum/uL Last Edit by Kathy Douglas CCM on 07/12/24 16:14 UA Nitrite Negative Last Edit by Kathy Douglas [facility] on 07/12/24 16:14 UA Urobilinogen 0.2 mg/dL Last Edit by Kathy Douglas [facility] on 07/12/24 16:14 UA Protein 0 mg/dL Last Edit by Kathy Douglas [facility] on 07/12/24 16:14 UA pH 6.0 Last Edit by Kathy Douglas [facility] on 07/12/24 16:14 UA Blood 0 Adam/uL Last Edit by Kathy Douglas CCM on 07/12/24 16:14 UA Specific [place] 1.025 Last Edit by Kathy Douglas CCM on 07/12/24 16:14 UA Ketone Negative Last Edit by RANDALL Paniagua on 07/12/24 16:14 UA Bilirubin 0 mg/dL Last Edit by RANDALL Paniagua on 07/12/24 16:14 UA Glucose 0 mg/dL Last Edit by RANDALL Paniagua on 07/12/24 16:14 Assessment & Plan Assessment & Plan (1) Vaginal irritation: Code(s): N89.8 - Other specified noninflammatory disorders of vagina Plan: 24-year-old female who presented to the walk-in clinic complaining of intermittent episodes of lower abdominal/pelvic discomfort, dysuria, and urinary frequency for the past several weeks. Her urinalysis was negative for nitrites or leukocyte esterase a urinary tract infection unlikely. Her urine test was negative. Bacterial vaginosis panel will be sent and patient will be called with the results. Patient also requested chlamydia/gonorrhea testing but she is unable to provide a dirty catch urine so she will come back to the lab to have this done another time. If the remainder of the workup is negative, I have recommended the patient follow up with her primary care physician for further evaluation as indicated. She was advised to follow-up here if she were to develop any flank/back pain, fever/chills, nausea/vomiting, for persistent/worsening symptoms and patient verbalized understanding and she is in agreement with the plan. Orders: Orders AMB HCG Urine Test Today Z32.02 - Encounter for test, result negative AMB Urinalysis Automated Today Z13.9 - Encounter for screening, unspecified CT NG by PCR Today N89.8 - Other specified noninflammatory disorders of vagina Bacterial Vaginosis Panel Today N89.8 - Other specified noninflammatory disorders of vagina Coding Level of Care Code Est Pt Level 3 (06940) Diagnoses Vaginal irritation N89.8
--- OUTSIDE RECORDS SUMMARY | 2024-07-12 17:52 | XMS_ITS | Continuity of Care Document ---
Author Organization [facility] In c [employer] [facility] Address [address] [place] [address] Care Team Providers Care Paper Stripper Name Role Phone Nicolette Le MD Unavailable [...] HG A1C LEVEL LT 7.0% OFFICE/OUTPATIENT VISIT, [facility] Advance Directives Directive Yes / No [...] Diagnoses Date Provider Providers Copied on Encounter [address], [id number] , [facility] Impaired glucose tolerance 2 Mimi Sewell. [address], [place], [place], [id number], [place]. tel:[phone] Referring Provider: [address], [place], [address] . 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 . Referring Provider: [address], [place], [address] . tel:[phone] OFFICE/OUTPA TIENT VISIT, [address], [id number] , [facility] Exposure to Mononucleosis (chief complaint) Body mass index [BMI] 27.0-27.9, adultEncounter for screening for diabetes mellitusEncntr screen for infections w sexl mode of transmissEncoun ter for screening for lipoid disordersExerci se counselingDieta ry counseling and surveillanceFam cassie history of diabetes mellitusEncount er for screening for other viral diseasesPrediab etes 2 Mimi Sewell. [address], [place], [place], [id number], [place]. tel:[phone] Referring Provider: Nicolette Le, [address], [place], [address] . tel:[phone] Family History Family Member Type Diagnosis Age At Onset Father Problem Diabetes mellitus Mother Problem Diabetes mellitus Payers Payer name Insurance type Covered alliance party ID Authoryunior hawthorne(s) Medicaid [facility] FMD Members Only CI [id number] Social History Type Description Quantity Date Captured [...] Future Order: Lab Order HEMOGLOB IN A1C ([id number]), Added on: New History Of Present Illness [...] Mental Status Date Cognitive Assessment Orientation - [place] ed to time, place, person, situation. Patient Care Teams Name Effective Dates (start - stop) Status Members No Information
== END 2024-07-12 16:24 | disposition home or self-care (01) ==
PROVIDERS: PCP Internal Medicine; Visit Provider Physician Assistant Medical
DX: Z32.02 Encounter for pregnancy test, result negative (principal); Z13.9 Encounter for screening, unspecified; N89.8 Other specified noninflammatory disorders of vagina

== ENCOUNTER 2024-07-15 08:36 | Outpatient (REF) | payer MEDICAID, SELFPAY ==
--- OUTSIDE RECORDS SUMMARY | 2024-07-15 09:05 | XMS_ITS | Continuity of Care Document ---
Author Organization [facility] In c MED SPEC [facility] Address [address] [place] [address] Care Team Providers Care Technical Intern Name Role Phone Nicolette Le MD Unavailable [...] LEVEL LT 7.0% OFFICE/OUTPATIENT VISIT, [facility] Advance Directives Directive Yes / [...] Date Provider Providers Copied on Encounter [address], [id number] , [facility] Impaired glucose tolerance 2 Mimi Sewell. [address], [place], [place], [address], [place]. tel:[phone] Referring Provider: Des[address], [place], [address] . 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 . Referring Provider: Desir[address], [place], [address] . tel:[phone] OFFICE/OUTPA TIENT VISIT, [address], [id number] , [facility] Exposure to Mononucleosis (chief complaint) Body mass index [BMI] 27.0-27.9, adultEncounter for screening for diabetes mellitusEncntr screen for infections w sexl mode of transmissEncoun ter for screening for lipoid disordersExerci se counselingDieta ry counseling and surveillanceFam cassie history of diabetes mellitusEncount er for screening for other viral diseasesPrediab etes 2 Mimi Sewell. [address], [place], [place], [address], [place]. tel:[phone] Referring Provider: Nicolette Le, [address], [place], [address] . tel:[phone] Family History Family Member Type Diagnosis Age At Onset Mother Problem Diabetes mellitus Father Problem Diabetes mellitus Payers Payer name Insurance type Covered libertarian ID Authoryunior hawthorne(s) Medicaid [facility] FMD Members Only [place] [id number] Social History Type Description Quantity Date Captured [...] Goal HPV (). Due on due Goal Lifestyle education regardin g diet completed Patient Education Prediabetes: After Your Visit completed Patient Education Body Mass Index: After Your Visit completed Apr-05-2022 Future Order: Lab Order HEMOGLOB IN A1C ([id number]), Added on: New History Of Present Illness [...] Mental Status Date Cognitive Assessment Orientation - [place] ed to time, place, person, situation. Patient Care Teams Name Effective Dates (start - stop) Status Members No Information
[2024-07-15 10:18] LABS: MANUAL DIFF FLAG NO
[2024-07-15 10:28] LABS: Basophils Percent Auto 0.4 % (0-2); Eosinophils Absolute Auto 0.2 X10*3/uL (0.0-0.4); Eosinophils Percent Auto 2.5 % (0-4); Hematocrit 43.2 % (37.0-47.0); Hemoglobin 14.2 g/dl (12.0-16.0); Imm Gran Abs Auto 0.04 X10*3/uL (0.00-0.03); Imm Gran Pct Auto 0.4 % (0.0-0.4); Lymphocytes Absolute Auto 2.6 X10*3/uL (1.2-4.9); Lymphocytes Percent Auto 29.2 % (20-40); Mean Corpuscular HGB Conc 32.9 g/dl (31.0-35.0); Mean Corpuscular Hemoglobin 30.1 pg (27.0-33.0); Mean Corpuscular Volume 91.7 fL (80.0-98.0); Mean Platelet Volume 9.9 fL (9.4-12.3); Monocytes Absolute Auto 0.7 X10*3/uL (0.1-1.2); Monocytes Percent Auto 8.3 % (2-11); Neutrophils Absolute Auto 5.3 x10*3/uL (2.0-8.3); Neutrophils Percent Auto 59.2 % (45-73); Platelet Count 332 X10*3/uL (160-400); Red Blood Count 4.71 X10*6/uL (4.20-5.50); Red Cell Distribution Width 12.6 % (11.0-16.0)
[2024-07-15 12:36] LABS: CT PCR NOT DETECTED (Not Detect.); NG PCR NOT DETECTED (Not Detect.)
== END 2024-07-15 08:37 | disposition home or self-care (01) ==
LOC: HO.HMGCLDS 08:36
PROVIDERS: PCP Internal Medicine; Visit Provider Physician Assistant Medical
DX: N89.8 Other specified noninflammatory disorders of vagina (principal); E53.8 Deficiency of other specified B group vitamins
CPT/HCPCS: 36415; 85025; 87491; 87591

== ENCOUNTER 2024-07-29 14:12 | Outpatient (AMB) | payer MEDICAID, SELFPAY ==
--- NOTE | 2024-07-29 14:16 | A.OFFVIS_ITS ---
Intake Visit Reasons: Uncomfortable ball in the coxis Intake Note: Patient scheduled appointment via portal for ball in coccyx. Refer to pcp Dr. De note dated 06-13-2024. Mentions mass on Rt side of sacral area near coccyx. Patient c/o: was I&Ded last year. Denies redness, inflammation Equipment Analyst Required: No Accompanied by: Self / Same As Patient Allergies No Known Allergies Allergy (Verified 07/29/24 14:19) HPI Comments Details: Patient was presents with a recurrent symptomatic pilonidal cyst. She has required I&D in the past. Because of persistent symptoms, and flare-ups she would like to have this excised. No such lesions elsewhere. Patient otherwise relatively healthy. She would like to have this area removed/excised Chart was reviewed and patient evaluated [facility] Medical History (Updated 06/24/24 @ 23:52 by Araceli De MD) Vitamin B12 deficiency Dyslipidemia Immunization declined control counseling Irregular menstrual bleeding COVID-19 Surgical History (Updated 07/30/24 @ 09:48 by Hua Argueta MD) No pertinent past surgical history Family History Mother Obese Diabetes mellitus Bronchial asthma Maternal Grandmother Diabetes mellitus Brother Bronchial asthma Social History Housing: Other Patient Tobacco Use Status: Never used Tobacco e-Cigarette/Vaping Use: Never Used service: No Current occupational status: unemployed Hearing needs: No Vision needs: Yes Female Reproductive History Menstrual Age of Menarche: 13 Physical Exam Chest Other: Chest sounds bilaterally, HS 1 in 2 GI Other: Abdomen is soft, benign Back/Spine/Pelvis Other: Patient has findings consistent with a pilonidal cyst of the window cleft area. Several sinuses as well as I&D site completely healed. Mildly tender. No evidence of induration or abscess or cellulitis Assessment & Plan Assessment & Plan (1) Chronic recurrent pilonidal cyst without abscess: Code(s): L05.91 - Pilonidal cyst without abscess Category: Surgical Plan Risks, benefits, alternatives of pilonidal cyst excision of the entered cleft area were reviewed with the patient included but not limited to bleeding, infection, seroma formation, numbness, pain, scarring, recurrence, wound dehiscence and the patient understands. All questions answered. Arrangements were made for this on a day which is convenient for her. I strongly stressed that she will need to be relatively sedentary for the 1st few weeks postop to avoid any wound issues. She understands. Coding Level of Care Code New Pt Level 5 (87564) Diagnoses Chronic recurrent pilonidal cyst without abscess L05.91
== END 2024-07-29 14:30 | disposition home or self-care (01) ==
LOC: HO.HGS 14:13
PROVIDERS: Visit Provider Surgery
DX: L05.91 Pilonidal cyst without abscess (principal)
CPT/HCPCS: 99204

== ENCOUNTER → 2024-07-29 14:12 | Outpatient (BNVA) | payer MEDICAID, SELFPAY | PROVIDERS: PCP Internal Medicine; Visit Provider Surgery | DX: L05.91 Pilonidal cyst without abscess (principal) | CPT/HCPCS: 99202 ==

== ENCOUNTER 2024-08-12 07:35 | Outpatient (REF) | payer OTHER, SELFPAY ==
[2024-08-12 10:58] LABS: HBS Num1 0.94 mIU/mL (0-7.99); ~Hepatitis B Surface Antibody NONREACTIVE (Nonreactive)
[2024-08-13 20:29] LABS: Rubella IgG Antibody 2.28 Index
[2024-08-15 03:23] LABS: TS Negative Control Passed; TS Panel A 0; TS Panel B 0; TS Positive Control Passed; TSpotTB Negative (Negative)
== END 2024-08-12 07:36 | disposition home or self-care (01) ==
LOC: HO.HMGCLDS 07:35
PROVIDERS: PCP Internal Medicine; Visit Provider Internal Medicine
DX: R76.0 Raised antibody titer (principal); Z11.1 Encounter for screening for respiratory tuberculosis; Z01.84 Encounter for antibody response examination; Z28.39 Other underimmunization status
CPT/HCPCS: 36415; 86481; 86706; 86735; 86762; 86765; 86787

== ENCOUNTER 2024-08-16 08:34 | Outpatient (AMB) | payer OTHER, SELFPAY ==
--- NOTE | 2024-08-16 08:56 | AM.OFFVISNUR ---
Intake Visit Reasons: Hep B vaccine (Booster) Allergies No Known Allergies Allergy (Verified 07/29/24 14:19) Nursing Note Pt came in. Administered Hepatitis B vaccine x 1 to left deltoid Immunizations Recombivax HB (PF) 10 mcg/mL intramuscular suspension Performing Provider: Araceli De MD Performing Location: [facility] Administered by: Umu Bauman on 08/16/24 08:56 Dose Route Admin Location Dispensed Lot Number Expiration Date [facility] Assistant County Attorney 1 mL IM Left Deltoid 1 mL [id number] 01/02/26 38544-545-88 [employer] VIS Given Date VIS Provided VIS Publication Date 08/16/24 Single Vaccine 22 Eligibility Eligibility Date Funding Source Not [facility] Eligible 08/16/24 Private Assessment & Plan Assessment & Plan Orders: Orders Hepatitis B Adult Immunization Today Z23 - Encounter for immunization Medications: New Recombivax HB (PF) (hepatitis B virus vacc.rec(PF)) 1.0 mL IM ONCE 1 mL 0RF NS Z23 - Encounter for immunization Coding
--- OUTSIDE RECORDS SUMMARY | 2024-08-16 09:04 | XMS_ITS | Continuity of Care Document ---
Author Organization [facility] In HEALTHCARE MANAGEMENT CONSULTANT [facility] Address [address] [place] [address] Care Team Providers Care Job Press Feeder Name Role Phone Nicolette Le MD Unavailable [...] A1C LEVEL LT 7.0% OFFICE/OUTPATIENT VISIT, [facility] Advance Directives Directive Yes / No [...] Diagnoses Date Provider Providers Copied on Encounter [address], [id number] , [facility] Impaired glucose tolerance 2 Mimi Sewell. [address], [place], [place], [address], [place]. tel:[phone] Referring Provider: Des[address], [place], [address] . tel:[phone], [id number] , [facility] No Information 2 Nurse Nurse. . Referring Provider: Des[address], [place], [address] . tel:[phone] OFFICE/OUTPA TIENT VISIT, [address], [id number] , [facility] Exposure to Mononucleosis (chief complaint) Body mass index [BMI] 27.0-27.9, adultEncounter for screening for diabetes mellitusEncntr screen for infections w sexl mode of transmissEncoun ter for screening for lipoid disordersExerci se counselingDieta ry counseling and surveillanceFam cassie history of diabetes mellitusEncount er for screening for other viral diseasesPrediab etes 2 M[address]. [address], [place], [place], [address], [place]. tel:[phone] Referring Provider: Nicolette Le, [address], [place], [address] . tel:[phone] Family History Family Member Type Diagnosis Age At Onset Father Problem Diabetes mellitus Mother Problem Diabetes mellitus Payers Payer name Insurance type Covered green party ID Authoryunior hawthorne(s) Medicaid [facility] FMD Members Only CI [id number] Social History Type Description Quantity Date Captured [...] HPV (1st). Due on 2 due Goal Tdap. Due on due Goal Depression scree ana. Due on due Goal Fluoride varnish application. Due on due Goal Influenza vaccine. Due on due Goal Td vaccine. Due on due Goal HPV (). Due on 2 due Goal Lifestyle education regardin g diet completed Patient Education Prediabetes: After Your Visit completed Patient Education Body Mass Index: After Your Visit completed Apr-05-2022 Future Order: Lab Order HEMOGLOB IN A1C ([id number]), Added on: New History Of Present Illness [...] Mental Status Date Cognitive Assessment Orientation - [place] ed to time, place, person, situation. Patient Care Teams Name Effective Dates (start - stop) Status Members No Information
== END 2024-08-16 09:40 | disposition home or self-care (01) ==
LOC: HO.HMCC 08:35
PROVIDERS: PCP Internal Medicine; Visit Provider Internal Medicine
DX: Z23 Encounter for immunization (principal)

== ENCOUNTER → 2024-08-16 08:34 | Outpatient (BNVA) | payer OTHER, SELFPAY | PROVIDERS: PCP Internal Medicine; Visit Provider Internal Medicine | DX: Z23 Encounter for immunization (principal) | CPT/HCPCS: 90471; 90746 ==

== ENCOUNTER 2024-09-12 06:05 | Day surgery (SDC) | payer OTHER, SELFPAY ==
--- OUTSIDE RECORDS SUMMARY | 2024-08-12 15:50 | XMS_ITS | Continuity of Care Document ---
Author Organization [facility] In DIE CLEANER [facility] Address [address] [place] [address] Care Team Providers Care Admissions Rn Name Role Phone Nicolette Le MD Unavailable [...] A1C LEVEL LT 7.0% OFFICE/OUTPATIENT VISIT, [facility] Advance Directives Directive Yes / No [...] Diagnoses Date Provider Providers Copied on Encounter [address], [id number] , [facility] Impaired glucose tolerance 2 Mimi Sewell. [address], [place], [place], [id number], [place]. tel:[phone] Referring Provider: Des[address], [place], [address] . tel:[phone], [id number] , [facility] No Information 2 Nurse Nurse. . Referring Provider: Desir[address], [place], [address] . tel:[phone] OFFICE/OUTPA TIENT VISIT, [address], [id number] , [facility] Exposure to Mononucleosis (chief complaint) Body mass index [BMI] 27.0-27.9, adultEncounter for screening for diabetes mellitusEncntr screen for infections w sexl mode of transmissEncoun ter for screening for lipoid disordersExerci se counselingDieta ry counseling and surveillanceFam cassie history of diabetes mellitusEncount er for screening for other viral diseasesPrediab etes 2 Mimi Sewell. [address], [place], [place], [address], [place]. tel:[phone] Referring Provider: Nicolette Le, [address], [place], [address] . tel:[phone] Family History Family Member Type Diagnosis Age At Onset Father Problem Diabetes mellitus Mother Problem Diabetes mellitus Payers Payer name Insurance type Covered libertarian ID Authoryunior hawthorne(s) Medicaid [facility] FMD Members Only CI [id number] Social History Type Description Quantity Date Captured [...] Future Order: Lab Order HEMOGLOB IN A1C ([id number]), Added on: New History Of Present Illness [...] Mental Status Date Cognitive Assessment Orientation - [place] ed to time, place, person, situation. Patient Care Teams Name Effective Dates (start - stop) Status Members No Information
[2024-09-10 12:43] VITALS: BMI 28.7
--- NOTE | 2024-09-10 14:05 | P.CONAN_ITS ---
Documented by User: Lakesha Perkins NP 09/10/24 14:06 HPI - Anesthesia Eval Consult details Narrative: 24yo F for Wide Local Excision Pilonidal Cyst of Nicole Cleft PMFSH Active Problems Active Problems: All Active Problems Chronic recurrent pilonidal cyst without abscess (Acute) Vitamin B12 deficiency (Acute) Mass of sacrum (Acute) Dyslipidemia (Acute) Depo-Provera contraceptive status (Acute) Counseling for control, emergency contraceptive prescription (Acute) Encounter for IUD removal (Acute) IUD complication (Acute) Encounter for IUD insertion (Acute) Cervical cancer screening (Acute) Encounter for screening examination for sexually transmitted disease (Acute) Immunization declined (Acute) control counseling (Acute) Irregular menstrual bleeding (Acute) Menstrual period late (Acute) Past Medical History Medical History Vitamin B12 deficiency Dyslipidemia Immunization declined control counseling Irregular menstrual bleeding COVID-19 Family History Family History Mother Obese Diabetes mellitus Bronchial asthma Maternal Grandmother Diabetes mellitus Brother Bronchial asthma Surgical History Surgical History No pertinent past surgical history Social History Social History Housing: Other Are you a primary behavioral health care coordinator to a significant other at home: No Do you presently have visiting nurse or other home services: No Patient Tobacco Use Status: Never used Tobacco e-Cigarette/Vaping Use: Never Used Use of substances other than those prescribed or required for medical reasons: No Have you been hit, kicked, punched, or otherwise hurt by someone within the past year? If so, by whom?: No Are you DNR?: No Advance Directives: No Advance Directives Information Provided: Yes Patient : No FDLMP: 09/07/24 service: No Current occupational status: unemployed Hearing needs: No Vision needs: Yes Meds Allergies Allergy/AdvReac Type Severity Reaction Status Date / Time No Known Allergies Allergy Verified 09/12/24 06:28 Exam Height,Weight and Vital Signs: Height 5 ft 1 in Weight 68.946 kg Assessment and Plan Assessment Anesthesia Assessment: Chart Reviewed Documented by User: Buddy Silveira MD 09/12/24 07:33 PMFSH Past Medical History Medical History Vitamin B12 deficiency Dyslipidemia Immunization declined control counseling Irregular menstrual bleeding COVID-19 Patient : No Family History Family History Mother Obese Diabetes mellitus Bronchial asthma Maternal Grandmother Diabetes mellitus Brother Bronchial asthma Family history of problems with anesthesia: No Surgical History Surgical History No pertinent past surgical history History of Problems with Anesthesia: No Social History Social History Housing: Other Are you a primary behavioral health care coordinator to a significant other at home: No Do you presently have visiting nurse or other home services: No Patient Tobacco Use Status: Never used Tobacco e-Cigarette/Vaping Use: Never Used Use of substances other than those prescribed or required for medical reasons: No Have you been hit, kicked, punched, or otherwise hurt by someone within the past year? If so, by whom?: No Are you DNR?: No Advance Directives: No Advance Directives Information Provided: Yes Patient : No FDLMP: 09/07/24 service: No Current occupational status: unemployed Hearing needs: No Vision needs: Yes Meds Allergies Allergy/AdvReac Type Severity Reaction Status Date / Time No Known Allergies Allergy Verified 09/12/24 06:28 Exam Airway Mallampati Class: II TM Dist: <=3cm Neck ROM: Full Loose/Missing/Broken Teeth: No Heart: ok Lungs: ok Assessment and Plan Assessment Anesthesia Assessment: Anesthesia Plan Discussed Final Anesthetic Review Family History of Problems with Anesthesia: No History of Problems with Anesthesia: No NPO: Yes ASA Class: II Final Preanesthetic Review: No Changes in Pt Med Stat, Meds/Allgs Chart Reviewed, Consent Obtained/Reviewed and Anes Risks/Benef Reviewed Patient Risk: Low Procedure Risk: Intermediate Anesthetic Plan Anesthetic Plan: GA and Agree w/ Assess. and Plan Disposition: Standard PACU
[2024-09-12] VITALS (8 sets, daily range): BP systolic 91–115; BP diastolic 56–72; PULSE 64–90; RESP 14–16; TEMP 36.3–36.5; O2SAT 97–99
[2024-09-12 06:33] LABS: UPreg QC Valid YES; Urine Pregnancy NEGATIVE (NEGATIVE)
[2024-09-12] MEDS: Lactated Ringers 1,000 ML 100 ML IVCONT (06:43)
--- NOTE | 2024-09-12 07:22 | MHC.SHP ---
Pre-Procedural Eval Section A - 24 Hr Update-Section A only Date of Service: 09/12/24 Section B - Complete if H&P > 30 days Chief Complaint: Pilonidal cyst without abscess Details of Present Illness: has had recurrent swelling and drainage on sacrococcygeal area Relevant Family History (Specify if Yes): No Relevant Social History: None Present Medications: see Short Stay Collaborative assessment Medical History: No relevant PMH History of Previous Operations: No relevant previous surgery Allergies: Allergies Allergy/AdvReac Type Severity Reaction Status Date / Time No Known Allergies Allergy Verified 09/12/24 06:28 Review of Systems Sugical H&P ROS: Negative: Constitution, Cardiovascular, Respiratory, Gastrointestinal and Genitourinary Exam Surgical H&P Exam: Normal: Heart, Normal: Lungs and Normal: Abdomen Exam Comment: sinus on gluteal cleft with induration to the left Plan Diagnosis/Plan: Unchanged I have reviewed the history and physical and performed a pertinent physical examination on my patient. No changes have occurred unless specified. Time Spent With Patient Time: Total time managing care of this patient today ____ minutes.
[2024-09-12] MEDS: ceFAZolin Sodium/Dextrose,Iso 2 GM/50 ML PIGGYBACK IV (07:25)
--- NOTE | 2024-09-12 07:56 | P.OP_ITS ---
Operative Note Operative Note Date of Service: 09/12/24 Narrative: Preop diagnosis: Pilonidal cyst, sacrococcygeal area Postop diagnosis: The same Procedure: Excision pilonidal cyst, sacrococcygeal area Surgeon: Avtar Manzo MD assistant production manager: NIKKI Sue The patient is a 34 year old female with a recurrent area of swelling and drainage on the sacrococcygeal area. She was seen by Dr. Argueta and had been scheduled for excision of pilonidal cyst. I reviewed with her the technique of this procedure. I explained the risks, benefits, and alternatives and she had given consent She was brought to the operating room. She was placed in prone position under general anesthesia via laryngeal mask airway. The buttocks were retracted with wide tape laterally. The sacrococcygeal area area was in the usual sterile fashion. A surgical time-out was done. The patient received cefazolin 2 g IV preoperatively There was note of midline pits within the gluteal cleft. Superior to this and to the left of the midline was note of the induration with eschar from a p revious abscess. I infiltrated the planned line of incision. I made the incision elliptically with a blade 15.. This carried down through the full- thickness of the skin and subcutaneous fat. I used electrocautery to excise all the diseased indurated tissue and this was sent as a specimen. This involved very thick amount of subcutaneous fat The excised area was about 6 by 4 cm. This was all the way deep into the subcutaneous layer. I irrigated. I undermined the subcutaneous layers on both sides as thick flaps to allow closure without tension. I then I made sure there was good hemostasis. I reapposed the deep subcutaneous layer Polysorb 3-0 simple interrupted sutures. Skin closure was achieved with nylon 3-0 simple interrupted sutures alternating with vertical mattress sutures The area was then infiltrated with a Marcaine 0.5% for postop analgesia. Dressings were applied. The procedure was completed The patient tolerated the procedure well. There were no immediate complications. Initial and final counts of sponges and instruments were correct. Estimated blood loss was about 5 cc The patient is extubated without difficulty and transferred to the recovery room with stable vital signs.
[2024-09-12] MEDS: Acetaminophen 325 MG TABLET 975 MG PO (08:33)
[2024-09-12] MEDS: oxyCODONE HCl Immed Release 5 MG TABLET PO (08:33)
== END 2024-09-12 09:10 | disposition home or self-care (01) ==
PROVIDERS: Nurse Practitioner; PCP Internal Medicine; Visit Provider Surgery
PROC: (CPT 11771; principal; 2024-09-12 07:30)
DX: L05.91 Pilonidal cyst without abscess (principal); E78.5 Hyperlipidemia, unspecified; E53.8 Deficiency of other specified B group vitamins; Z56.0 Unemployment, unspecified
CPT/HCPCS: 11771; 81025; 88304; J0690; J1885; J2003; J2405; J2704; J2795; J3010

== ENCOUNTER → 2024-09-12 06:05 | Outpatient (BNV) | payer OTHER, SELFPAY | PROVIDERS: PCP Internal Medicine; Visit Provider Surgery | DX: L05.91 Pilonidal cyst without abscess (principal) | CPT/HCPCS: 11771 ==

== ENCOUNTER 2024-09-23 11:42 | Outpatient (AMB) | payer OTHER, SELFPAY ==
--- NOTE | 2024-09-23 11:47 | MHC.OFFVIS ---
Vital Signs 09/23/24 11:51 Weight 160 lb BP 129/72 Blood Pressure Location Rt brachial Position Standing Pulse 118 H Intake Visit Reasons: s/p WLE pilonidal cyst Intake Note: Patient here s/p WLE pilonidal cyst on 09-12-2024. Patient c/o: reports pain, discomfort. Difficulty when laying down at night to sleep. Director Medical Surgical Required: No Allergies No Known Allergies Allergy (Verified 09/12/24 06:28) HPI HPI s/p WLE pilonidal cyst: Details: She underwent excision of a pilonidal cyst from the sacrococcygeal area last 09/12/2024. She tolerated the procedure and currently feels well. She does admit to some pain on the surgical site although this has been improving. [facility] Medical History (Updated 09/23/24 @ 12:02 by Avtar Manzo MD) Sacrococcygeal pilonidal cyst Vitamin B12 deficiency Dyslipidemia Immunization declined control counseling Irregular menstrual bleeding COVID-19 Surgical History No pertinent past surgical history Family History Mother Obese Diabetes mellitus Bronchial asthma Maternal Grandmother Diabetes mellitus Brother Bronchial asthma Social History Housing: Other Are you a primary personal care worker to a significant other at home: No Do you presently have visiting nurse or other home services: No Patient Tobacco Use Status: Never used Tobacco e-Cigarette/Vaping Use: Never Used service: No Current occupational status: unemployed Hearing needs: No Vision needs: Yes Female Reproductive History Menstrual Age of Menarche: 13 Review of Systems Const Denies chills and Denies fever(s) Physical Exam Vital Signs: Last Vital Signs Pulse 118 H 09/23/24 11:51 BP 129/72 09/23/24 11:51 Const General: comfortable and no acute distress Resp Effort & Inspection: normal respiratory effort Back/Spine/Pelvis Other: Excision site on the sacrococcygeal area is well healed, sutures intact, not infected Assessment & Plan Assessment & Plan (1) Sacrococcygeal pilonidal cyst: Code(s): L05.91 - Pilonidal cyst without abscess Category: Medical Plan: Status post excision. Her incision is well healed. I removed all her sutures. I reinforced the incision with Steri-Strips Her path report confirms a pilonidal cyst She can follow up on a p.r.n. basis. Coding Level of Care Code Global (62301) Diagnoses Sacrococcygeal pilonidal cyst L05.91
[2024-09-23 11:51] VITALS: BP 129/72; PULSE 118
--- OUTSIDE RECORDS SUMMARY | 2024-09-23 12:28 | XMS_ITS | Continuity of Care Document ---
Author Organization [facility] In [employer] [facility] Address [address] [place] [address] Care Team Providers Care Civil Preparedness Officer Name Role Phone Nicolette Le MD Unavailable [...] HG A1C LEVEL LT 7.0% OFFICE/OUTPATIENT VISIT, [facility] Advance Directives Directive Yes / [...] Diagnoses Date Provider Providers Copied on Encounter [address], [id number] , [facility] Impaired glucose tolerance 2 Mimi Sewell. [address], [place], [place], [id number], [place]. tel:[phone] Referring Provider: Desir[address], [place], [address] . tel:[phone], [id number] , [facility] No Information 2 Nurse Nurse. . Referring Provider: Desirae [address], [place], [address] . tel:[phone] OFFICE/OUTPA TIENT VISIT, [address], [id number] , [facility] Exposure to Mononucleosis (chief complaint) Body mass index [BMI] 27.0-27.9, adultEncounter for screening for diabetes mellitusEncntr screen for infections w sexl mode of transmissEncoun ter for screening for lipoid disordersExerci se counselingDieta ry counseling and surveillanceFam cassie history of diabetes mellitusEncount er for screening for other viral diseasesPrediab etes 2 Mimi Sewell. [address], [place], [place], [id number], [place]. tel:[phone] Referring Provider: Nicolette Le, [address], [place], [address] . tel:[phone] Family History Family Member Type Diagnosis Age At Onset Mother Problem Diabetes mellitus Father Problem Diabetes mellitus Payers Payer name Insurance type Covered libertarian ID Authoryunior hawthorne(s) Medicaid [facility] FMD Members Only CI [id number] Social History Type Description Quantity Date Captured [...] HPV (). Due on 2 due Goal Fluoride varnish application. Due on [...] Future Order: Lab Order HEMOGLOB IN A1C ([id number]), Added on: New History Of Present Illness [...] Mental Status Date Cognitive Assessment Orientation - [place] ed to time, place, person, situation. Patient Care Teams Name Effective Dates (start - stop) Status Members No Information
--- OUTSIDE RECORDS SUMMARY | 2024-09-23 12:28 | XMS_ITS | Clinical Summary ---
Author Organization [employer] Address [address] [address] [place] [address] Care Team Providers Care Vessel Captain Name Role Phone Unavailable Primary Care Provider Unavailabl e Encounters Date Type Department Care Team Description 08/19/2024 3:30 PM EDT Immunization [facility] [address] [place] [id number] Eva Zayas LPN Encounter for immunization (Primary Dx) 08/14/2024 Population Health Risk Score [facility] Department [address] [address] Provider, Population Health Generic from Last 3 Months Immunizations Name Administration Dates Next Due Tdap 08/19/2024 Social History Tobacco Use Types Packs/Day Years Used Date Smoking Tobacco: Never Assessed Comments Unknown Sex and Gender Information Value Date Recorded Sex Assigned at Female 08/20/2024 10:52 AM EDT Legal Sex Female 3:40 PM EST Gender Identity Female 08/20/2024 10:52 AM EDT Sexual Orientation Straight 08/20/2024 10 :52 AM EDT Plan of Treatment Health Maintenance Due Date Last Done Comments Chlamydia and Gonorrhea Screening 2001 Depression Screening 2001 HIV Screening 2001 SDOH Screening 2001 Alcohol/Substance Use Screening 2013 Tobacco Screening 2013 Family Planning (PISQ) 2016 HPV Vaccines (1 - 3-dose series) 2016 Hepatitis C Screening 2019 Pap Smear 2022 COVID-19 Vaccine (1 - 2023-2 5 season) 2024 Influenza Vaccine (#1) 2024 Hepatitis B Vaccines (2 of 3 - 19+ 3-dose series) 09/13/2024 08/16/2024 DTaP/Tdap/Td Vaccines (2 - T d or Tdap) 08/19/2034 08/19/2024 Zoster Vaccines (1 of 2) 2051 RSV Patients and Pa tients Aged 60 years or older (1 - 1-dose 75+ series) 2076 HIB Vaccines Aged Out No longer eligi ble based on patient's age to complete this topic Hepatitis A Vaccines Aged Out No long er eligible based on patient's age to complete this topic IPV Vaccines Aged Out No longer eligi ble based on patient's age to complete this topic Meningococcal Vaccine Aged Out No ramona ronnie eligible based on patient's age to complete this topic Pneumococcal Vaccine: Pediat rics (0 to 5 Years) and At-Risk Patients (6 to 49) Years) Aged Out No longer elig ible based on patient's age to complete this topic RSV under 20 months Aged Out No longe r eligible based on patient's age to complete this topic Rotavirus Vaccines Aged Out No longer eligible based on patient's age to complete this topic [address] [place] [address] [facility] [employer] PLAN
== END 2024-09-23 12:02 | disposition home or self-care (01) ==
LOC: HO.HGS 11:43
PROVIDERS: PCP Internal Medicine; Visit Provider Surgery
DX: L05.91 Pilonidal cyst without abscess (principal)
CPT/HCPCS: 99024

== ENCOUNTER → 2024-09-23 11:42 | Outpatient (BNVA) | payer OTHER, SELFPAY | PROVIDERS: PCP Internal Medicine; Visit Provider Surgery | DX: Z09 Encounter for follow-up examination after completed treatment for conditions other than malignant neoplasm (principal); Z87.2 Personal history of diseases of the skin and subcutaneous tissue; Z98.890 Other specified postprocedural states | CPT/HCPCS: 99212 ==

== ENCOUNTER 2024-12-19 14:18 | Outpatient (AMB) | payer OTHER, SELFPAY ==
--- OUTSIDE RECORDS SUMMARY | 2021-09-17 12:30 | XMS_ITS | Continuity of Care Document ---
Author Organization [facility] In PRODUCTION MATERIAL HANDLER [facility] Address [address] [place] [address] Care Team Providers Care Water Tanker Driver Name Role Phone Nicolette Le MD Unavailable [...] HG A1C LEVEL LT 7.0% OFFICE/OUTPATIENT VISIT, [facility] Advance Directives Directive Yes / [...] Diagnoses Date Provider Providers Copied on Encounter [address], [id number] , [facility] Impaired glucose tolerance 2 Mimi Sewell. [address], [place], [place], [address], [place]. tel:[phone] Referring Provider: Desir[address], [place], [address] . 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 . Referring Provider: Desir[address], [place], [address] . tel:[phone] OFFICE/OUTPA TIENT VISIT, [address], [id number] , [facility] Exposure to Mononucleosis (chief complaint) Body mass index [BMI] 27.0-27.9, adultEncounter for screening for diabetes mellitusEncntr screen for infections w sexl mode of transmissEncoun ter for screening for lipoid disordersExerci se counselingDieta ry counseling and surveillanceFam cassie history of diabetes mellitusEncount er for screening for other viral diseasesPrediab etes 2 Mimi Sewell. [address], [place], [place], [address], [place]. tel:[phone] Referring Provider: Nicolette Le, [address], [place], [address] . tel:[phone] Family History Family Member Type Diagnosis Age At Onset Mother Problem Diabetes mellitus Father Problem Diabetes mellitus Payers Payer name Insurance type Covered democrat ID Authoryunior hawthorne(s) Medicaid [facility] FMD Members Only CI [id number] Social History Type Description Quantity Date Captured Comments Alcohol Use Details No Caffeine Use Details Tobacco Use Status No Information Smoking Status Never smoker Non-Smoking Tobacco Use Details : No Details Available : No Details Available Sex Female Chief Complaint And Reason For Visit No Information Reason For Referral Reason For Referral No Information Plan Of Treatment Date Type Action Status Goal Fluoride varnish application. Due on due Goal Tdap. Due on due Goal Influenza vaccine. Due on due Goal Depression scree ana. Due on due Goal Lipid panel. Due on 027 due Goal Td vaccine. Due on due Goal HPV (). Due on 2 due Goal HPV (). Due on due Goal Tdap. Due on due Goal Depression scree ana. Due on due Goal Fluoride varnish application. Due on due Goal Influenza vaccine. Due on due Goal Td vaccine. Due on due Goal Lifestyle education regardin g diet completed Patient Education Prediabetes: After Your Visit completed Patient Education Body Mass Index: After Your Visit completed Apr-05-2022 Future Order: Lab Order HEMOGLOB IN A1C ([id number]), Added on: New History Of Present Illness [...] Mental Status Date Cognitive Assessment Orientation - [place] ed to time, place, person, situation. Patient Care Teams Name Effective Dates (start - stop) Status Members No Information
--- NOTE | 2024-12-19 14:19 | A.OFFVIS_ITS ---
Intake Visit Reasons: RLQ pain/irregular menses Intake Note: Right sided pelvic pain, irregular periods. Instrument Maintenance Supervisor: Instrument Maintenance Supervisor Present (MAKENNA Sanchez) Accompanied by: Self / Same As Patient Allergies No Known Allergies Allergy (Verified 12/19/24 14:26) HPI Comments Details: Patient is here today with concerns of irregular menses and right lower quadrant pain-all over, worse on the right side x2mo. No abnormal discharge or urinary symptoms. Cycle Q 30-34 days, current cycle ended yesterday. Discontinued OCPs in July. Open to a future . Does not want . [facility] Medical History Pelvic pain Depo-Provera contraceptive status Counseling for control, emergency contraceptive prescription Encounter for IUD removal IUD complication Encounter for IUD insertion Cervical cancer screening Sacrococcygeal pilonidal cyst Vitamin B12 deficiency Dyslipidemia Immunization declined COVID-19 Surgical History No pertinent past surgical history Family History Mother Obese Diabetes mellitus Bronchial asthma Maternal Grandmother Diabetes mellitus Brother Bronchial asthma Social History Housing: Other Are you a primary healthcare educator to a significant other at home: No Do you presently have visiting nurse or other home services: No Patient Tobacco Use Status: Never used Tobacco e-Cigarette/Vaping Use: Never Used service: No Current occupational status: unemployed Hearing needs: No Vision needs: Yes Female Reproductive History Menstrual Age of Menarche: 13 Date of last menstrual period: 12/14/24 control method: none Review of Systems Const All systems reviewed & are unremarkable except as noted in HPI and below Physical Exam Const General: cooperative, healthy appearing and no acute distress Orientation/consciousness: patient oriented x3 GI Inspection: Yes normal to inspection Palpation (GI): Soft to palpation and Other GI palpation findings present (Nontender) Rectal Exam - Female: visual inspection normal General: Yes bladder normal to palpation External Female Exam: normal appearance of the urethra Speculum Exam - Vagina: normal appearance of the vagina, normal palpation and normal vaginal discharge Speculum Exam - Cervix: normal appearance of the cervix and normal palpation Bimanual exam- vagina & uterus: normal bimanual exam, normal palpation, uterine size normal, bladder normal to palpation, normal palpation, uterine shape normal and non-tender Bimanual Exam- Adnexa, other: normal adnexae and Other (Fullness and slight tenderness on right side) Neuro General: patient oriented x3 Assessment & Plan Assessment & Plan (1) Pelvic pain: Code(s): R10.2 - Pelvic and perineal pain Category: Medical Plan Plan workup: Pelvic ultrasound, GC chlamydia and BV panel. UA-blood, most likely from menstrual residual. Pelvic rest and warnings reviewed follow up pelvic ultrasound in person. Call sooner if any increase in pelvic pain. Counseled regarding the benefits of vitamins for folic acid and prevention of neural tube defects. Importance of healthy well-balanced diet. The patient expressed understanding and agreement with the plan of care. All of her questions and concerns were addressed to the best of my ability. This note is constructed using voice recognition software. While every effort has been made to ensure accuracy, warehouse processor errors may have been included. Orders: Orders Bacterial Vaginosis Panel Today N92.6 - Irregular menstruation, unspecified US pelvic and transvaginal Today R10.2 - Pelvic and perineal pain Pap Smear Today N92.6 - Irregular menstruation, unspecified, Z12.4 - Encounter for screening for malignant neoplasm of cervix CT NG by PCR Vag/Cerv Today N92.6 - Irregular menstruation, unspecified Medications: Discontinued oxycodone-acetaminophen 5-325 mg Partial Fill upon patient request. Discontinued Reason: No Longer Medically Relevant 1 tab PO Q6H PRN 25 tabs 0RF pain Coding Level of Care Code Est Pt Level 3 (16798) Diagnoses Pelvic pain R10.2
--- OUTSIDE RECORDS SUMMARY | 2024-12-19 14:20 | XMS_ITS | Clinical Summary ---
Author Organization [employer] Address [address] [place] [address] Care Team Providers Care Motor Tester Name Role Phone Unavailable Primary Care Provider Unavailabl e Immunizations Immunization Administration Dates Next Due Tdap 08/19/2024 Social [...] 2001 HIV Screening 2001 SDOH Screening 2001 Disability Screening 2001 Alcohol/Substance Use Screening 2013 Tobacco Screening 2013 Family Planning (PISQ) 2016 HPV Vaccines (1 - 3-dose series) 2016 Meningococcal B Vaccine (1 o f 2 - Standard) 2017 Hepatitis C Screening 2019 Pap Smear 2022 COVID-19 Vaccine (1 - 2023-2 5 season) 2024 Hepatitis B Vaccines (2 of 3 - 19+ 3-dose series) 09/13/2024 08/16/2024 Influenza Vaccine (#1) 2025 DTaP/Tdap/Td Vaccines (2 - T d or [...] Years) and At-Risk Patients (6 to 49) Years Aged Out No longer eligi ble based on patient's age to complete this topic RSV under 20 months Aged Out No longe r eligible based on patient's age to complete this topic Rotavirus Vaccines Aged Out No longer eligible based on patient's age to complete this topic Insurance [facility] [employer] PLAN
== END 2024-12-19 14:52 | disposition home or self-care (01) ==
LOC: HO.HWS 14:18
PROVIDERS: PCP Internal Medicine; Visit Provider Advanced Practice Midwife
DX: R10.2 Pelvic and perineal pain (principal)
CPT/HCPCS: 99213

== ENCOUNTER 2024-12-19 14:18 | Outpatient (REF) | payer OTHER, SELFPAY ==
[2024-12-19 17:01] LABS: Bacterial Vaginosis PCR NEGATIVE (Negative); Candida Group PCR NOT DETECTED (Not Detect); Candida glab krusei PCR NOT DETECTED (Not Detect); Trichomonas vaginalis PCR NOT DETECTED (Not Detect)
[2024-12-19 17:33] LABS: CT PCR NOT DETECTED (Not Detect.); NG PCR NOT DETECTED (Not Detect.)
== END 2024-12-19 14:19 | disposition home or self-care (01) ==
LOC: HO.LNP 14:18
PROVIDERS: PCP Internal Medicine; Visit Provider Advanced Practice Midwife
DX: Z12.4 Encounter for screening for malignant neoplasm of cervix (principal); N92.6 Irregular menstruation, unspecified; R10.2 Pelvic and perineal pain; Z11.51 Encounter for screening for human papillomavirus (HPV); Z11.3 Encounter for screening for infections with a predominantly sexual mode of transmission; Z11.8 Encounter for screening for other infectious and parasitic diseases
CPT/HCPCS: 81515; 87491; 87591; 87626; 88175; 99212

== ENCOUNTER 2025-02-25 15:25 | Outpatient (REF) | payer OTHER, SELFPAY ==
--- NOTE | ~2025-02-25 | US_ITS ---
EXAMINATION: US PELVIS TRANSABDOMINAL AND TRANSVAGINAL HISTORY: R10.2 - Pelvic and perineal pain COMPARISON: Comparison is made with the prior examination dated 07/06/2023. TECHNIQUE: Transabdominal and endovaginal real-time 2D klein-scale ultrasound was performed. FINDINGS: Uterus: The uterus is normal in size, measuring 6.4 x 3.0 x 4.1 cm. Myometrium has a normal echotexture. No fibroids are identified. Endometrium: The endometrial stripe measures 1 mm in thickness. Right ovary: The right ovary measures 3.1 x 1.6 x 1.6 cm. The right ovary is normal in size and echotexture. There is a 10 mm probable follicle. Left ovary: The left ovary measures 3.4 x 2.3 x 3.0 cm. There is a 2.4 x 1.9 x 2.6 cm cyst with a low level internal echoes. Pelvic fluid: none. US/US pelvic and transvaginal IMPRESSION: 2.4 x 1.9 x 2.6 cm left ovarian cyst with low level internal echoes, likely a hemorrhagic cyst. Follow-up is recommended in 6 weeks, at a different time in the patient's menstrual cycle, to document resolution. Electronically signed by: Sage Nye MD 02/25/2025 03:56 PM EDT
--- OUTSIDE RECORDS SUMMARY | 2025-02-25 18:12 | XMS_ITS | Clinical Summary ---
Author Organization [email or web address] Address [address] [place] [address] Care Team Providers Care Fairing Worker Name Role Phone Unavailable Primary Care Provider [...] Hepatitis C Screening 2019 Pap Smear 2022 Hepatitis B Vaccines (2 of 3 - 19+ 3-dose series) 09/13/2024 08/16/2024 COVID-19 Vaccine ( - 2023-2 5 season) 2025 Influenza Vaccine (#1) 2025 DTaP/Tdap/Td Vaccines (2 [...] patient's age to complete this topic Insurance [facility] [employer] PLAN
== END 2025-02-25 15:26 | disposition home or self-care (01) ==
LOC: HO.HMGCX 15:25
PROVIDERS: PCP Internal Medicine; Visit Provider Advanced Practice Midwife
DX: R10.20 Pelvic and perineal pain unspecified side (principal)
CPT/HCPCS: 76830; 76856

== ENCOUNTER → 2025-02-25 15:28 | Outpatient (BNV) | payer OTHER, SELFPAY | PROVIDERS: PCP Internal Medicine; Visit Provider Radiology Diagnostic Radiology | DX: N83.202 Unspecified ovarian cyst, left side (principal) | CPT/HCPCS: 76830; 76856 ==

== ENCOUNTER 2025-03-13 11:27 | Outpatient (AMB) | payer OTHER, SELFPAY ==
--- OUTSIDE RECORDS SUMMARY | 2021-09-17 12:30 | XMS_ITS | Continuity of Care Document ---
Author Organization [facility] In MEDICAL MICROBIOLOGIST [facility] Address [address] [place] [address] Care Team Providers Care Starting Sheet Tank Operator Name Role Phone Nicolette Le MD Unavailable [...] HG A1C LEVEL LT 7.0% OFFICE/OUTPATIENT VISIT, [facility] Advance Directives Directive Yes / No Effective [...] Diagnoses Date Provider Providers Copied on Encounter [address], [id number] , [facility] Impaired glucose tolerance 2 Mimi Sewell. [address], [place], [place], [address], [place]. tel:[phone] Referring Provider: [address], [place], [address] . 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 . Referring Provider: Des[address], [place], [address] . tel:[phone] OFFICE/OUTPA TIENT VISIT, [address], [id number] , [facility] Exposure to Mononucleosis (chief complaint) Body mass index [BMI] 27.0-27.9, adultEncounter for screening for diabetes mellitusEncntr screen for infections w sexl mode of transmissEncoun ter for screening for lipoid disordersExerci se counselingDieta ry counseling and surveillanceFam cassie history of diabetes mellitusEncount er for screening for other viral diseasesPrediab etes 2 Mimi [address]. [address], [place], [place], [address], [place]. tel:[phone] Referring Provider: Nicolette Le, [address], [place], [address] . tel:[phone] Family History Family Member Type Diagnosis Age At Onset Mother Problem Diabetes mellitus Father Problem Diabetes mellitus Payers Payer name Insurance type Covered libertarian ID Authoryunior hawthorne(s) Medicaid [facility] FMD Members Only CI [id number] Social History Type Description Quantity Date Captured [...] Fluoride varnish application. Due on due Goal HPV (1st). Due on 2 due Goal Lifestyle education regardin g diet completed Patient Education Prediabetes: After Your Visit completed Patient Education Body Mass Index: After Your Visit completed Apr-05-2022 Future Order: Lab Order HEMOGLOB IN A1C ([id number]), Added on: New History Of Present Illness [...] Mental Status Date Cognitive Assessment Orientation - [place] ed to time, place, person, situation. Patient Care Teams Name Effective Dates (start - stop) Status Members No Information
--- NOTE | 2025-03-13 11:29 | A.OFFVIS_ITS ---
Intake Visit Reasons: Ultra sound follow up Fermentation Manager: Fermentation Manager Present Allergies No Known Allergies Allergy (Verified 03/13/25 11:29) Is last menstrual period known: Yes Last menstrual period: 02/26/25 HPI Comments Details: Patient is here today for a follow up pelvic ultrasound, history of pelvic pain on the left side. [facility] Medical History (Updated 03/13/25 @ 12:07 by Quin Garcia CNM) Stress incontinence Complex cyst of left ovary Pelvic pain Depo-Provera contraceptive status Counseling for control, emergency contraceptive prescription Encounter for IUD removal IUD complication Encounter for IUD insertion Cervical cancer screening Sacrococcygeal pilonidal cyst Vitamin B12 deficiency Dyslipidemia Immunization declined COVID-19 Surgical History No pertinent past surgical history Family History Mother Obese Diabetes mellitus Bronchial asthma Maternal Grandmother Diabetes mellitus Brother Bronchial asthma Social History Housing: Other Are you a primary healthcare sales representative to a significant other at home: No Do you presently have visiting nurse or other home services: No Patient Tobacco Use Status: Never used Tobacco e-Cigarette/Vaping Use: Never Used service: No Current occupational status: unemployed Hearing needs: No Vision needs: Yes Female Reproductive History Menstrual Age of Menarche: 13 Date of last menstrual period: 02/26/25 Review of Systems Const All systems reviewed & are unremarkable except as noted in HPI and below Endo Reports no additional complaints Physical Exam Const General: cooperative, healthy appearing and no acute distress Psych Appearance: well kempt Attitude: cooperative Thought process: Normal thought process present Results Reviewed Results Reviewed: [facility] [facility] [place] [address] Ultrasound Report Signed Patient: Jennifer Doan MR#: [id number] : 2000 Acct:[id number] Age/Sex: 24 / F ADM Date: 02/25/25 Loc: HO.HMGCX Attending Dr: Quin Garcia CNM Ordering Physician: Quin Garcia CNM Date of Service: 02/25/25 Procedure(s): US pelvic and transvaginal Accession Number(s): [id number] cc: Araceli De MD; Quin Garcia CNM~ Reason for Exam: R10.2 - Pelvic and perineal pain EXAMINATION: US PELVIS TRANSABDOMINAL AND TRANSVAGINAL HISTORY: R10.2 - Pelvic and perineal pain COMPARISON: Comparison is made with the prior examination dated 07/06/2023. TECHNIQUE: Transabdominal and endovaginal real-time 2D klein-scale ultrasound was performed. FINDINGS: Uterus: The uterus is normal in size, measuring 6.4 x 3.0 x 4.1 cm. Myometrium has a normal echotexture. No fibroids are identified. Endometrium: The endometrial stripe measures 1 mm in thickness. Right ovary: The right ovary measures 3.1 x 1.6 x 1.6 cm. The right ovary is normal in size and echotexture. There is a 10 mm probable follicle. Left ovary: The left ovary measures 3.4 x 2.3 x 3.0 cm. There is a 2.4 x 1.9 x 2.6 cm cyst with a low level internal echoes. Pelvic fluid: none. US/US pelvic and transvaginal IMPRESSION: 2.4 x 1.9 x 2.6 cm left ovarian cyst with low level internal echoes, likely a hemorrhagic cyst. Follow-up is recommended in 6 weeks, at a different time in the patient's menstrual cycle, to document resolution. Electronically signed by: Sage Nye MD 02/25/2025 03:56 PM EDT Dictated By: Sage Nye MD Signed By: <Electronically signed by Sage Nye MD in OV> 02/25/25 1556 DD/ 1531 TD/TT: 02/25/25 1549 Phlebotomy Program Coordinator: Assessment & Plan Assessment & Plan (1) Complex cyst of left ovary: Comment: 2.6cm Code(s): N83.292 - Other ovarian cyst, left side Category: Medical Plan: Counseled regarding findings of: Complex ovarian cyst, which is often benign, and most resolve on their own overtime. Some develop into premalignant or malignant tumors. Limitations of testing for diagnostic purposes. Further monitoring and evaluation is recommended with US, possible CT, or MRI study. If persists, or is indicated (Ca-125, Carbohydrate Antigen 19-9, & Carcinoembryonic Antigen) labs will be ordered and referral to [facility] or general gynecology for MD care if indicated for possible surgical consult. Follow up in person for test results. Advised to call if sooner if there is any increase in discomfort on the left side or if there is sudden significant increase to go directly to the emergency room for immediate evaluation. Yxuv-lqy-glpqwtr self-help remedies including Tylenol or ibuprofen if no contraindications recommended per manufacture's dosing. Additionally may use a heating pad if helpful. All of her questions and concerns were addressed to the best of my ability and shared decision making. She is agreeable to the plan of care. This note is constructed using voice recognition software. While every effort has been made to ensure accuracy, dog handler errors may have been included. (2) Abnormal Pap smear of cervix: Code(s): R87.619 - Unspecified abnormal cytological findings in specimens from cervix uteri Qualifiers: Abnormal Pap type: other Qualified Code(s): R87.618 - Other abnormal cytological findings on specimens from cervix uteri Plan Counseled regarding previous Pap smear results, recommended colposcopy due to history of LGSIL and HPV positive. The patient expressed understanding and agreement with the plan of care. All of her questions and concerns were addressed to the best of my ability. Colposcopy to be scheduled before leaving the department today. This note is constructed using voice recognition software. While every effort has been made to ensure accuracy, dog handler errors may have been included. Orders: Orders US pelvic and transvaginal 04/07/25 N83.292 - Other ovarian cyst, left side Referrals Pelvic Portrait Studio Photographer Referral N39.3 - Stress incontinence (female) (male) Coding Level of Care Code Est Pt Level 3 (37115) Diagnoses Complex cyst of left ovary N83.292 Other abnormal cytological finding of specimen from cervix R87.618 Abnormal Pap type: other
--- OUTSIDE RECORDS SUMMARY | 2025-03-13 14:22 | XMS_ITS | Clinical Summary ---
Author Organization [employer] Address [address] [place] [address] Care Team Providers Care Activities Assistant Name Role Phone Unavailable Primary Care Provider [...] patient's age to complete this topic Insurance [facility] [employer] PLAN
== END 2025-03-13 12:07 | disposition home or self-care (01) ==
LOC: HO.HWS 11:27
PROVIDERS: PCP Internal Medicine; Visit Provider Advanced Practice Midwife
DX: N83.292 Other ovarian cyst, left side (principal); R87.618 Other abnormal cytological findings on specimens from cervix uteri
CPT/HCPCS: 99213

== ENCOUNTER → 2025-03-13 11:27 | Outpatient (BNVA) | payer OTHER, SELFPAY | PROVIDERS: PCP Internal Medicine; Visit Provider Advanced Practice Midwife | DX: N83.292 Other ovarian cyst, left side (principal); R87.618 Other abnormal cytological findings on specimens from cervix uteri | CPT/HCPCS: 99212 ==

== ENCOUNTER 2025-04-08 10:32 | Outpatient (REF) | payer OTHER, SELFPAY ==
--- NOTE | ~2025-04-08 | US_ITS ---
CLINICAL HISTORY: N83.292 - Other ovarian cyst, left side --- Additional Notes or Special Instructions: 6 wk follow up US pelvis transabdominal and transvaginal with doppler interrogation Comparison: 02/25/2025 Findings: Transabdominal scanning performed for overall anatomy. Transvaginal scanning performed for additional detail. Anteverted uterus 6.8 cm in length. Normal echotexture. No fibroids. Normal endometrium, 5 mm thickness. Right ovary normal, 3.3 cm. Normal color flow. A tiny simple cyst or follicle measuring up to 14 mm is present. Previously noted complex cyst no longer appreciated. Left ovary normal, 2.6 cm. Normal color flow No free fluid Impression: 1. Unremarkable pelvic ultrasound This document has been electronically signed by: Mitul Renee MD on 04/08/2025 17:15:43
[2025-04-08 14:15] LABS: MANUAL DIFF FLAG NO
[2025-04-08 14:34] LABS: Hematocrit 42.0 % (37.0-47.0); Hemoglobin 13.7 g/dl (12.0-16.0); Imm Gran Abs Auto 0.04 X10*3/uL (0.00-0.03); Imm Gran Pct Auto 0.5 % (0.0-0.4); Lymphocytes Absolute Auto 2.6 X10*3/uL (1.2-4.9); Mean Corpuscular HGB Conc 32.6 g/dl (31.0-35.0); Mean Corpuscular Hemoglobin 29.4 pg (27.0-33.0); Mean Corpuscular Volume 90.1 fL (80.0-98.0); NRBC Abs Auto 0.000 X10*3/uL (0.0-0.012); NRBC Pct Auto 0.0 /100WBC (0.0-0.2); Platelet Count 386 X10*3/uL (160-400); Red Blood Count 4.66 X10*6/uL (4.20-5.50); White Blood Count 8.2 X10*3/uL (4.8-10.8)
[2025-04-08 14:49] LABS: Alanine Aminotransferase 37 U/L (0-31); Albumin Level 4.6 g/dL (3.5-5.0); Alkaline Phosphatase 91 U/L (39-117); Anion Gap 11 (12-20); Aspartate Amino Transferase 25 U/L (5-31); Blood Urea Nitrogen 15 mg/dL (9-16); Calcium 9.2 mg/dL (8.4-10.2); Carbon Dioxide 27 mmol/L (22-29); Chloride 106 mmol/L (96-108); Estimated Glomerular Filt Rate > 60; Potassium 3.7 mmol/L (3.3-5.1); Sodium 140 mmol/L (135-145); Total Protein 7.4 g/dL (6.5-8.0)
== END 2025-04-08 10:33 | disposition home or self-care (01) ==
LOC: HO.HMGCX 10:32
PROVIDERS: Absent Provider Physician Assistant Medical; PCP Internal Medicine; Visit Provider Advanced Practice Midwife
DX: N83.292 Other ovarian cyst, left side (principal); R51.9 Headache, unspecified
CPT/HCPCS: 36415; 76830; 76856; 80053; 83036; 84443; 85025; 99212

== ENCOUNTER → 2025-04-08 10:35 | Outpatient (BNV) | payer OTHER, SELFPAY | PROVIDERS: Absent Provider Physician Assistant Medical; PCP Internal Medicine; Visit Provider Radiology Diagnostic Radiology | DX: N83.292 Other ovarian cyst, left side (principal) | CPT/HCPCS: 76830; 76856 ==

== ENCOUNTER 2025-04-08 10:56 | Outpatient (AMB) | payer OTHER, SELFPAY ==
--- OUTSIDE RECORDS SUMMARY | 2021-09-17 11:30 | XMS_ITS | Continuity of Care Document ---
Author Organization [facility] In TAPE CALENDER [facility] Address [address] [place] [address] Care Team Providers Care Awning Hanger Name Role Phone Nicolette Le MD Unavailable [...] HG A1C LEVEL LT 7.0% OFFICE/OUTPATIENT VISIT, [facility] Advance Directives Directive Yes / No Effective [...] Diagnoses Date Provider Providers Copied on Encounter [address], [id number] , [facility] Impaired glucose tolerance 2 Mimi Sewell. [address], [place], [place], [address], [place]. tel:[phone] Referring Provider: Desir[address], [place], [address] . 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 . Referring Provider: Desir[address], [place], [address] . tel:[phone] OFFICE/OUTPA TIENT VISIT, [address], [id number] , [facility] Exposure to Mononucleosis (chief complaint) Body mass index [BMI] 27.0-27.9, adultEncounter for screening for diabetes mellitusEncntr screen for infections w sexl mode of transmissEncoun ter for screening for lipoid disordersExerci se counselingDieta ry counseling and surveillanceFam cassie history of diabetes mellitusEncount er for screening for other viral diseasesPrediab etes 2 Mimi Sewell. [address], [place], [place], [id number], [place]. tel:[phone] Referring Provider: Nicolette Le, [address], [place], [address] . tel:[phone] Family History Family Member Type Diagnosis Age At Onset Father Problem Diabetes mellitus Mother Problem Diabetes mellitus Payers Payer name Insurance type Covered republican ID Authoryunior hawthorne(s) Medicaid [facility] FMD Members Only CI [id number] Social History Type Description Quantity Date Captured Comments Alcohol Use Details No Caffeine Use Details Tobacco Use Status No Information Smoking Status Never smoker Non-Smoking Tobacco Use Details : No Details Available : No Details Available Sex Female Chief Complaint And Reason For Visit No Information Reason For Referral Reason For Referral No Information Plan Of Treatment Date Type Action Status Goal Influenza vaccine. Due on due Goal Fluoride varnish application. Due on due Goal Tdap. Due on due Goal Td vaccine. Due on due Goal Lipid panel. Due on 027 due Goal HPV (). Due on 2 due Goal Depression scree ana. Due on due Goal HPV (1st). Due on 2 due Goal Td vaccine. Due on due Goal Influenza vaccine. Due on due Goal Tdap. Due on due Goal Depression scree ana. Due on due Goal Fluoride varnish application. Due on due Goal Lifestyle education regardin g diet completed Patient Education Prediabetes: After Your Visit completed Patient Education Body Mass Index: After Your Visit completed Apr-05-2022 Future Order: Lab Order HEMOGLOB IN A1C ([id number]), Added on: New History Of Present Illness [...] 0/10 Instructions Date Instruction Additional Infor agapito Lifestyle education regarding di et Related to Body mass index [BMI] 27.0-27.9, adult Giving encouragement to exercise Related to Body mass index [BMI] 27.0-27.9, adult Assessments Type Assessment Date assessment Impaired glucose tolerance impression Recommend Metformin 500 mg 1-2 x /day, pt moved out of the state & has a new PCP.Low carb diet & exercise. Mental Status Date Cognitive Assessment Orientation - [place] ed to time, place, person, situation. Patient Care Teams Name Effective Dates (start - stop) Status Members No Information
[2025-04-08 11:00] VITALS: BP 102/60; PULSE 99; O2SAT 98; BMI 33.1
--- NOTE | 2025-04-08 11:00 | AM.OFFWIN_ITS ---
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 Patient Tobacco Use Status: Never used Tobacco Allergies No Known Allergies Allergy (Verified 04/08/25 11:03) Do you need a note to return to daycare/school/sports/work: No HPI HPI Comments History of Present Illness Details History of Present Illness - The patient is a 24-year-old individua l presenting with a chronic headache. - The headache has been present for rosa m ral years but recently became constant, occurring 05/12. - She has been getting B 12 injections a nd she feels like it started more consistently after getting them. - The patient reports a pressure-like se nsation on both sides of the head that is exacerbated by activities such as watching TV, using the phone, and walking. - The headache does not typically presen t with nausea, vision changes, or aura. - The patient has tried fjsb-pkq-uetaoqn medications such as Tylenol and Motrin, with varying effectiveness. - The patient has a history of high bloo d sugar levels, with family history of diabetes, but is not diagnosed with diabetes. - The patient monitors blood sugar level s at home, which are currently controlled. - The patient has a history of an ovaria n cyst but reports no other significant symptoms. - Had a recent eye exam and needs readin g glasses. - She has no associated sinus pain or co ngestion. - She has no chest pain, SOB, nausea, vo miting, abd pain, neck pain or stiffness. - She has no other new medications. Physical Exam General: Cooperative, healthy appearing, comfortable, no acute distress and well developed Orientation: Patient oriented x3 Limitations: No limitations Head: Normal to inspection Ears: Hearing grossly normal bilaterally. Nose: Normal external nose present Face and sinus: Normal facial exam. No sinus tenderness noted. Eyes: Appearance normal, both eyes and all related structures. PERRLA, EOMI. Neck: Normal visual inspection and Yes full ROM. No thyroid masses or nodules noted. Respiratory: Normal respiratory effort and able to speak in complete sentences. Clear to auscultation bilaterally. No w/r/r noted. Cardiovascular: Regular rate and rhythm. Normal S1 and S2. No m/r/g noted. GI: Normal to inspection. Soft to palpation and nontender. No guarding noted. Skin: No rashes or lesions noted Neuro: Patient oriented x3. CN II- XII intact. Patient was informed and verbally consented to the use of an ambient scribe for clinic note documentation during this visit. [facility] Medical History (Updated 03/13/25 @ 12:07 by Quin Garcia CNM) Stress incontinence Complex cyst of left ovary Pelvic pain Depo-Provera contraceptive status Counseling for control, emergency contraceptive prescription Encounter for IUD removal IUD complication Encounter for IUD insertion Cervical cancer screening Sacrococcygeal pilonidal cyst Vitamin B12 deficiency Dyslipidemia Immunization declined COVID-19 Surgical History No pertinent past surgical history Family History Mother Obese Diabetes mellitus Bronchial asthma Maternal Grandmother Diabetes mellitus Brother Bronchial asthma Social History Housing: Other Are you a primary primary care sales representative to a significant other at home: No Do you presently have visiting nurse or other home services: No Patient Tobacco Use Status: Never used Tobacco e-Cigarette/Vaping Use: Never Used service: No Current occupational status: unemployed Hearing needs: No Vision needs: Yes Female Reproductive History Menstrual Age of Menarche: 13 Review of Systems Const All systems reviewed & are unremarkable except as noted in HPI and below Physical Exam Vital Signs: Last Vital Signs Pulse 99 04/08/25 11:00 BP 102/60 04/08/25 11:00 Pulse Ox 98 04/08/25 11:00 Oxygen Delivery Method Room Air 04/08/25 11:00 BMI result Body Mass Index 33.1 Assessment & Plan Assessment & Plan (1) Generalized headaches: Code(s): R51.9 - Headache, unspecified Plan Most likely tension GONGORA vs electrolyte abnormality vs thyroid Unlikely due to vision or HTN plan - Plan to conduct laboratory tests to rule out thyroid dysfunction, electrolyte imbalance, anemia, and diabetes. - Consider referral to a neurologist for further evaluation if necessary. - Monitor headache progression and response to ooml-olc-tsugfsj medications. - Avoid over use of NSAIDs. - follow up with PCP in 1-2 weeks for further evaluation - advised the ER if she has worsening Orders: Orders TSH reflex Free T4 Today R51.9 - Headache, unspecified Comprehensive Met. Panel Today R51.9 - Headache, unspecified Complete Blood Count Auto Diff Today R51.9 - Headache, unspecified Hemoglobin A1c Today R51.9 - Headache, unspecified Coding Level of Care Code Est Pt Level 4 (76670) Diagnoses Generalized headaches R51.9
--- OUTSIDE RECORDS SUMMARY | 2025-04-08 14:19 | XMS_ITS | Clinical Summary ---
Author Organization [employer] Address [address] [place] [address] Care Team Providers Care Application Processor Name Role Phone Unavailable Primary Care Provider [...] Health Maintenance Due Date Last Done Comments Depression Screening 2001 HIV Screening 2001 SDOH Screening 2001 Disability Screening 2001 Alcohol/Substance Use Screening 2013 Tobacco Screening 2013 Family Planning (PISQ) 2016 HPV Vaccines (1 - 3-dose series) 2016 Meningococcal B Vaccine (1 o f 2 - Standard) 2017 Hepatitis C Screening 2019 Pap Smear 2022 Hepatitis B Vaccines (2 of 3 - 19+ 3-dose series) 09/13/2024 08/16/2024 COVID-19 Vaccine (1 - 2024-2 6 season) 2025 Influenza Vaccine (#1) 2025 Chlamydia and Gonorrhea Screening 07/15/2025 07/15/2024, 07/15/2024 DTaP/Tdap/Td Vaccines (2 - T d or Tdap) 08/19/2034 08/19/2024 Zoster Vaccines (1 of 2) 2051 RSV Patients and Patients Aged 60 years or older (1 - [...] age to complete this topic Pneumococcal Vaccine: Pediatrics (0 to 5 Years) and At-Risk Patients (6 to 49) Years Aged Out No longer eligible b ased on patient's age to complete this topic RSV under 20 months Aged Out No longe r eligible based on patient's age to complete this topic Rotavirus Vaccines Aged Out No longer eligible based on patient's age to complete this topic [address] [place] [address] [facility] [employer] PLAN
== END 2025-04-08 11:43 | disposition home or self-care (01) ==
PROVIDERS: PCP Internal Medicine; Visit Provider Physician Assistant Medical
DX: R51.9 Headache, unspecified (principal)

== ENCOUNTER 2025-04-15 10:09 | Outpatient (AMB) | payer OTHER, SELFPAY ==
--- NOTE | 2025-04-15 10:04 | A.OFFVIS_ITS ---
Intake Visit Reasons: Tv ultra sound follow up Leather Stamper: Leather Stamper Present Allergies No Known Allergies Allergy (Verified 04/15/25 10:05) Is last menstrual period known: Yes Last menstrual period: 02/26/25 HPI Comments Details: Tele Health Visit Total time I personally spent on visit and management today: 26 minutes. Time spent included review of pertinent office notes in the electronic health record; review of laboratory and imaging results; review of personal family medical history; discussing diagnosis and plan of care with the patient; documenting the encounter in the EMR. Patient presents to discuss: LMP 02/26, no cycle in March, home test was negative. History of right sided pelvic pain, resolved. Has pain in the right breast, only when touching area over last 2-3 wks. She denies any lumps, or nipple discharge, no injuries or surgeries. [facility] Medical History (Updated 04/15/25 @ 11:21 by Quin Garcia CNM) HPV (human papilloma virus) infection Stress incontinence Cervical cancer screening Sacrococcygeal pilonidal cyst Vitamin B12 deficiency Dyslipidemia Immunization declined COVID-19 Surgical History No pertinent past surgical history Family History Mother Obese Diabetes mellitus Bronchial asthma Maternal Grandmother Diabetes mellitus Brother Bronchial asthma Social History Housing: Other Are you a primary career services officer to a significant other at home: No Do you presently have visiting nurse or other home services: No Patient Tobacco Use Status: Never used Tobacco e-Cigarette/Vaping Use: Never Used service: No Current occupational status: unemployed Hearing needs: No Vision needs: Yes Female Reproductive History Menstrual Age of Menarche: 13 Duration of menses: 3-5 days Date of last menstrual period: 02/26/25 control method: none Review of Systems Const All systems reviewed & are unremarkable except as noted in HPI and below Endo Reports no additional complaints Physical Exam Const General: cooperative, healthy appearing and no acute distress Psych Appearance: well kempt Attitude: cooperative Thought process: Normal thought process present Telehealth Telehealth Telehealth Platform: RatingBug Location of provider rendering services: practice address Location of patient: address on file Patient Identification confirmed using: Name, : Yes Telehealth method: video Patient verbally consented to treatment: Yes Patient verbally consented to billing insurance company: Yes Patient informed of any privacy concerns related to visit: Yes Results Reviewed Results Reviewed: [facility] [address] [place] [address] Ultrasound Report Signed Patient: Jennifer Doan MR#: [id number] : 2000 Acct:[id number] Age/Sex: 24 / F ADM Date: 04/08/25 Loc: HO.HMGCX Attending Dr: Quin Garcia CNM Ordering Physician: Quin Garcia CNM Date of Service: 04/08/25 Procedure(s): US pelvic and transvaginal Accession Number(s): [id number] cc: Araceli De MD; Quin Garcia CNM~ Reason for Exam: N83.292 - Other ovarian cyst, left side CLINICAL HISTORY: N83.292 - Other ovarian cyst, left side --- Additional Notes or Special Instructions: 6 wk follow up US pelvis transabdominal and transvaginal with doppler interrogation Comparison: 02/25/2025 Findings: Transabdominal scanning performed for overall anatomy. Transvaginal scanning performed for additional detail. Anteverted uterus 6.8 cm in length. Normal echotexture. No fibroids. Normal endometrium, 5 mm thickness. Right ovary normal, 3.3 cm. Normal color flow. A tiny simple cyst or follicle measuring up to 14 mm is present. Previously noted complex cyst no longer appreciated. Left ovary normal, 2.6 cm. Normal color flow No free fluid Impression: 1. Unremarkable pelvic ultrasound This document has been electronically signed by: Mitul Renee MD on 04/08/2025 17:15:43 Dictated By: Mitul Renee MD Signed By: <Electronically signed by Mitul Renee MD in OV> 04/08/251716 DD/ 14 TD/TT: 04/08/251714 Luster Repairer: Assessment & Plan Assessment & Plan (1) Breast pain: Code(s): N64.4 - Mastodynia Plan: Monitor breast pain, follow up in 1-2 weeks for exam unless completely resolved. Call sooner for appointment if any increase in discomfort or other concerns. Monitor for menses repeat urine test at home, notify office of results for further follow up and plan of care. The patient expressed understanding and agreement with the plan of care. All of her questions and concerns were addressed to the best of my ability. (2) Encounter to discuss test results: Code(s): Z71.2 - Person consulting for explanation of examination or test findings Plan Discussed: Ultrasound findings- Findings: Transabdominal scanning performed for overall anatomy. Transvaginal scanning performed for additional detail. Anteverted uterus 6.8 cm in length. Normal echotexture. No fibroids. Normal endometrium, 5 mm thickness. Right ovary normal, 3.3 cm. Normal color flow. A tiny simple cyst or follicle measuring up to 14 mm is present. Previously noted complex cyst no longer appreciated. Left ovary normal, 2.6 cm. Normal color flow No free fluid Impression: 1. Unremarkable pelvic ultrasound The patient expressed understanding and agreement with the plan of care. All of her questions and concerns were addressed to the best of my ability. This note is constructed using voice recognition software. While every effort has been made to ensure accuracy, retirement assistant errors may have been included. Medications: Discontinued cyanocobalamin (vitamin B-12) Discontinued Reason: Stopped on Transfer 1,000 mcg PO DAILY 90 caps 1RF E53.8 - Deficiency of other specified B group vitamins Coding Level of Care Code Tele Est Pt Level 3 (53029) Diagnoses Breast pain N64.4 Encounter to discuss test results Z71.2
--- OUTSIDE RECORDS SUMMARY | 2025-04-15 11:33 | XMS_ITS | Clinical Summary ---
Author Organization [employer] Address [address] [place] [address] Care Team Providers Care Screenplay Writer Name Role Phone Unavailable Primary Care Provider [...] to complete this topic Insurance [address] [place] [address] [facility] [employer] PLAN
== END 2025-04-15 10:41 | disposition home or self-care (01) ==
LOC: HO.HWS 10:09
PROVIDERS: PCP Internal Medicine; Visit Provider Advanced Practice Midwife
DX: N64.4 Mastodynia (principal); Z71.2 Person consulting for explanation of examination or test findings
CPT/HCPCS: 99213

== ENCOUNTER 2025-04-24 13:32 | Outpatient (AMB) | payer OTHER, SELFPAY ==
[2025-04-24 13:38] VITALS: BP 108/72; PULSE 91; RESP 16; TEMP 36.7; O2SAT 97; BMI 34.2
--- NOTE | 2025-04-24 13:38 | A.OFFPC_ITS ---
Vital Signs 04/24/25 13:38 Height 5 ft 1 in Weight 181 lb BMI 34.2 BP 108/72 Blood Pressure Location Lt brachial Position Sitting Respiration 16 Pulse 91 Pulse Source Pulse Oximeter Temp 98.1 F Temp Source Oral Pulse Oximetry (%) 97 Oxygen Delivery Method Room Air Intake Visit Reasons: Headaches-walk in f/up DOS:04/08/25 Intake Note: Pt is here today to f/u walkin from [employer] Administrator Required: No Allergies No Known Allergies Allergy (Verified 04/24/25 14:07) Medication List - Last Reconciled 04/24/25 by Araceli De MD No Known Home Meds Tobacco use date assessed: 04/24/25 Dental Screening Dental Screen Date: 04/24/25 Did you have a dental visit in the last 12 months?: Yes Did you have a dental problem in the last 6 months where you did not have access to dental care?: No Was dental information given to patient?: Patient has dentist HPI Headaches-walk in f/up DOS:04/08/25 HPI Details 23-year-old lady here today after recent walk-in visit complaining of chronic headaches. He has been headaches now for several years but recently occurring frequently lasting for several hours even days at a time. She describes as pressure-like sensation in both sides of the, aggravated by diabetes like watching TV and exercise. Patient denies any preceding symptoms like nausea, no vision changes, no upper respiratory symptoms. She has taken Tylenol and Motrin which occasionally helps. Walk-in provider ordered a CBC, comprehensive metabolic panel and a T thyroid-stimulating hormone all of which came back within normal limits. Only abnormal finding in her lab is low vitamin B12 deficiency. She was initially started on oral supplements of vitamin B12 but patient states that headache got worse when taking it. [facility] Medical History (Updated 04/26/25 @ 01:36 by Araceli De MD) Chronic headache Fatigue HPV (human papilloma virus) infection Stress incontinence Cervical cancer screening Sacrococcygeal pilonidal cyst Vitamin B12 deficiency Dyslipidemia Immunization declined COVID-19 Surgical History No pertinent past surgical history Family History Mother Obese Diabetes mellitus Bronchial asthma Maternal Grandmother Diabetes mellitus Brother Bronchial asthma Social History Housing: Other Are you a primary lawn care specialist to a significant other at home: No Do you presently have visiting nurse or other home services: No Patient Tobacco Use Status: Never used Tobacco e-Cigarette/Vaping Use: Never Used service: No Current occupational status: unemployed Hearing needs: No Vision needs: Yes Female Reproductive History Menstrual Age of Menarche: 13 Questionnaire PHQ-9 Over the last 2 weeks, how often have you been bothered by any of the following problems? 1. Little interest or pleasure in doing things: not at all 2. Feeling down, depressed, or hopeless: not at all 3. Trouble falling or staying asleep, or sleeping too much: not at all 4. Feeling tired or having little energy: several days 5. Poor appetite or overeating: not at all 6. Feeling bad about yourself - or that you are a failure or have let yourself or your family down: not at all 7. Trouble concentrating on things, such as reading the newspaper or watching television: not at all 8. Moving or speaking so slowly that other people could have noticed. Or the opposite - being so fidgety or restless that you have been moving around a lot more than usual: not at all 9. Thoughts that you would be better off or of hurting yourself in some way: not at all Total score: 1 Depression Screening Interpretation: Negative Depression Screening Done: Yes Source: Developed by Drs. Sage Lee, Lauren Chavez, Dick kwan nd colleagues, with an educational stuart from [employer]. Thrive Questionnaire Date Thrive assessed: 06/13/24 I am a: Patient What is your living situation today?: I have a steady place to live Within the past 12 months, did the food you bought not last and you didn't have the money to get more?: Sometimes True Within the past 12 months, did you worry whether your food would run out before you got money to buy more?: Never true Do you have trouble paying for medicines?: No Do you have trouble getting transportation to medical appointments?: No Do you have trouble paying your heating and electricity bill?: No Do you have trouble taking care of your child, family member or friend?: No Do you have trouble with day-to-day activities such as bathing, preparing meals, shopping, managing finances, etc.?: No Are you currently unemployed and looking for a job?: Yes Are you interested in more education?: Yes Please select the resources that you would like help with: None Currently or been in a relationship where the following occur: I choose not to answer THRIVE Score: 1 AUDIT C Alcohol Use Questionnaire (AUDIT-C) 1. How often do you have a drink containing alcohol?: Never Total Score: 0 ISABELLA-7 AMB Questionnaire ISABELLA-7 Date ISABELLA - 7 assessed: 06/13/24 Feeling nervous, anxious, or on edge: 0 = Not at all Not being able to stop or control worryin = Not at all Worrying too much about different things: 0 = Not at all Trouble relaxin = Not at all Being so restless that it is hard to sit still: 0 = Not at all Becoming easily annoyed or irritable: 0 = Not at all Feeling afraid as if something awful might happen: 0 = Not at all Total ISABELLA-7 score (0-4 normal; 5-9 mild; 10-14 moderate; 15-21 severe): 0 Source: Developed by Drs. Sage Lee, Lauren Chavez, Dick Durán and colleagues, with an educational stuart from [employer]. Review of Systems Const All systems reviewed & are unremarkable except as noted in HPI and below Reports fatigue and Reports malaise Eyes Details: Up-to-date with her eye exam, has myopia ENT Reports no additional complaints Card Reports no additional complaints Resp Reports no additional complaints GI Reports no additional complaints Musc Reports no additional complaints Neuro Reports no additional complaints Endo Reports fatigue Physical exam (Primary Care) Vital Signs: Last Vital Signs Temp 98.1 F 04/24/25 13:38 Pulse 91 04/24/25 13:38 Resp 16 04/24/25 13:38 BP 108/72 04/24/25 13:38 Pulse Ox 97 04/24/25 13:38 Oxygen Delivery Method Room Air 04/24/25 13:38 BMI result Body Mass Index 34.2 Tobacco/Smoking Status: Tobacco use Status Tobacco use date assessed 04/24/25 04/24/25 13:42 Patient Tobacco Use Status Never used Tobacco 04/24/25 13:42 e-Cigarette/Vaping Use Never Used 04/24/25 13:42 PHQ-9: PHQ-9 Score PHQ-9: Total score 1 04/24/25 14:26 Depression Screening Interpretation: Negative Thrive Assessment: Date of Thrive Assessment Date Thrive assessed 06/13/24 04/24/25 13:42 Currently or been in a relationship where the following occur: I choose not to answer Const General: comfortable and no acute distress Nutritional Appearance: overweight Orientation/consciousness: patient oriented x3 HENMT Head: Yes normocephalic Ears: hearing grossly normal bilaterally and external ears normal General nose exam: Normal external nose present Face and sinus: Yes face symmetric Mouth: moist mucous membranes Eyes General: appearance normal, both eyes and all related structures Neck Other: Nonpalpable thyroid gland Neck: Yes full ROM, Yes no lymphadenopathy and Yes supple Resp Effort & Inspection: normal respiratory effort and able to speak in complete sentences Auscultation: clear to auscultation bilaterally Cardio Rate: regular rate Rhythm: regular rhythm Heart sounds: S1 normal heart sound present and S2 normal heart sound present GI Inspection: Yes normal to inspection Palpation (GI): Soft to palpation, nontender, no guarding and no masses Auscultation: normal bowel sounds General: Yes no CVA tenderness and Yes deferred (Has appointment already scheduled with [facility] in September 2024) Back/Spine/Pelvis Back: no CVA tenderness and No back tenderness Cervical Spine: normal cervical lordosis and cervical ROM normal Thoracic/Lumbar Spine: thoracic and lumbar spine normal to inspection Skin General skin exam: no rashes or lesions noted Neuro General: patient oriented x3, gait normal, tone normal, moves all extremities, Normal light touch and pain sensation, no focal motor deficits and CN's II-XI intact bilaterally Cognition (Neuro): normal cognition Gait exam (Neuro): Normal gait present Motor exam (neuro): 5/5 motor strength present throughout Extrem General: Yes normal to inspection, Yes full ROM and Yes no joint enlargement Psych Appearance: grossly normal and well kempt Mental Status: mental status grossly normal Speech and movement: Normal speech and movement present Affect: normal affect Results Reviewed Results Reviewed: Name: Jennifer Doan Age/Sex: 24/F : 2000 Unit#: [id number] Attend Dr: Quin Garcia CNM Re04/08/25 Status: DEP REF Location: HO.HMGCX Disch: SPEC : [id number] ADITYA: 04/08/25 STATUS: COMP REQ : [id number] RECD: 04/08/[address]: CASIMIRO BALLESTEROS COMP: 04/08/25 ENTERED: 04/08/[address]: Araceli De MD, Brenda CNM ORDERED: CMP, TSH Rflx Test Result Flag Reference Sodium 140 135-145 mmol/L Potassium 3.7 3.3-5.1 mmol/L CL 106 96-108 mmol/L CO2 27 22-29 mmol/L Gap 11 L 12-20 BUN 15 9-16 mg/dL Creat 0.59 0.5-1.4 mg/dL eGFR > 60 Chronic Kidney Disease: Estimated GFR < 60 mL/min/1.73m2 Severe Kidney Disease: Estimated GFR < 15 mL/min/1.73m2 Glucose, Random 94 60-115 mg/dL CA 9.2 # 8.4-10.2 mg/dL Total Bili 0.4 0.0-1.0 mg/dL AST (GOT) 25 5-31 U/L ALT (GPT) 37 H 0-31 U/L Protein, Total 7.4 6.5-8.0 g/dL Alb 4.6 3.5-5.0 g/dL Alk Phos 91 39-117 U/L TSH 1.01 0.32-4.0 uIU/mL Name: Jennifer Doan Age/Sex: : 2000 Unit#: [id number] Attend Dr: Quin Garcia CNM Re04/08/25 Status: DEP REF Location: HO.HMGCX Disch: SPEC : [id number] ADITYA: 04/08/25 STATUS: COMP REQ : [id number] RECD: 04/08/[address]: CASIMIRO BALLESTEROS COMP: 04/08/25 ENTERED: 04/08/[address]: Araceli De MD, Brenda CNM ORDERED: CBC Auto Diff Test Result Flag Reference WBC 8.2 4.8-10.8 X10*3/uL RBC 4.66 4.20-5.50 X10*6/uL HGB 13.7 12.0-16.0 g/dl HCT 42.0 37.0-47.0 % MCV 90.1 80.0-98.0 fL MCH 29.4 27.0-33.0 pg MCHC 32.6 31.0-35.0 g/dl RDW 12.4 11.0-16.0 % PLT 386 160-400 X10*3/uL MPV 9.7 9.4-12.3 fL Neut Pct Auto 56.0 45-73 % ImGran Pct Auto 0.5 H 0.0-0.4 % Lymp Pct Auto 31.9 20-40 % [place] Pct Auto 7.9 2-11 % Eos Pct Auto 3.2 0-4 % Baso Pct Auto 0.5 0-2 % NRBC Pct Auto 0.0 0.0-0.2 /100WBC ANC Neut Abs # 4.6 2.0-8.3 x10*3/uL ImGran Abs Auto 0.04 H 0.00-0.03 X10*3/uL Lymph Abs Auto 2.6 1.2-4.9 X10*3/uL [place] Abs Auto 0.7 0.1-1.2 X10*3/uL Eos Abs Auto 0.3 0.0-0.4 X10*3/uL Baso Abs Auto 0.0 0.0-0.2 X10*3/uL NRBC Abs Auto 0.000 0.0-0.012 X10*3/ uL Coding Level of Care Code Est Pt Level 4 (99489) Diagnoses Vitamin B12 deficiency E53.8 Fatigue, unspecified type R53.83 Fatigue type: unspecified Chronic nonintractable headache, unspecified headache type R51.9; G89.29 Headache type: unspecified Intractability: not intractable Assessment & Plan Assessment & Plan (1) Vitamin B12 deficiency: Code(s): E53.8 - Deficiency of other specified B group vitamins Category: Medical (2) Fatigue: Code(s): R53.83 - Other fatigue Category: Medical Qualifiers: Fatigue type: unspecified Qualified Code(s): R53.83 - Other fatigue (3) Chronic headache: Code(s): R51.9 - Headache, unspecified; G89.29 - Other chronic pain Category: Medical Qualifiers: Headache type: unspecified Intractability: not intractable Qualified Code(s): R51.9 - Headache, unspecified; G89.29 - Other chronic pain Plan Low vitamin B12 can cause increase frequency of headaches, and malaise and fatigue. Will confirm vitamin-B deficiency, methylmalonic acid intrinsic factor and homocystine level. Advised to get labs done 1st before empirically starting her on vitamin B12 supplements 0.1 mL and given subcutaneously once a week for the 1st month and then once monthly afterwards. Will refer her to a nurse navigator proper instructions to administer vitamin B12 by her for all, if capable. Orders: Orders Methylmalonic Acid 04/24/25 E53.8 - Deficiency of other specified B group vitamins, G89.29 - Other chronic pain, R51.9 - Headache, unspecified, R53.83 - Other fatigue Homocysteine 04/24/25 E53.8 - Deficiency of other specified B group vitamins, G89.29 - Other chronic pain, R51.9 - Headache, unspecified, R53.83 - Other fatigue Intrinsic Factor Antibodies 04/24/25 E53.8 - Deficiency of other specified B group vitamins, G89.29 - Other chronic pain, R51.9 - Headache, unspecified, R53.83 - Other fatigue Medications: New cyanocobalamin (vitamin B-12) Inject 100 mcg or 0.1 mL subcutaneously once a week for 4 weeks, then once a month 100 mcg (0.1 mL) subcut QWEEK 10 mL 0RF E53.8 - Deficiency of other specified B group vitamins syringe with needle (Monoject 3cc Syringe) As directed 50 ea 0RF E53.8 - Deficiency of other specified B group vitamins
--- OUTSIDE RECORDS SUMMARY | 2025-04-24 20:42 | XMS_ITS | Clinical Summary ---
Author Organization [employer] Address [address] [place] [address] Care Team Providers Care Lan Administrator Name Role Phone Unavailable Primary Care Provider [...] to complete this topic Insurance [address] [place] [address] [facility] [employer] PL[employer]
== END 2025-04-24 15:17 | disposition home or self-care (01) ==
LOC: HO.HMCC 13:33
PROVIDERS: PCP Internal Medicine; Visit Provider Internal Medicine
DX: E53.8 Deficiency of other specified B group vitamins (principal); R53.83 Other fatigue; R51.9 Headache, unspecified; G89.29 Other chronic pain

== ENCOUNTER → 2025-04-24 13:32 | Outpatient (BNVA) | payer OTHER, SELFPAY | PROVIDERS: PCP Internal Medicine; Visit Provider Internal Medicine | DX: R51.9 Headache, unspecified (principal); G89.29 Other chronic pain; E53.8 Deficiency of other specified B group vitamins; R53.83 Other fatigue | CPT/HCPCS: 99212 ==

== ENCOUNTER 2025-04-28 07:01 | Outpatient (REF) | payer OTHER, SELFPAY ==
--- OUTSIDE RECORDS SUMMARY | 2021-09-17 11:30 | XMS_ITS | Continuity of Care Document ---
Author Organization [facility] In PHARMACY SALESPERSON [facility] Address [address] [place] [address] Care Team Providers Care Steward/Stewardess Club Car Name Role Phone Nicolette Le MD Unavailable Unavailable Allergies, Adverse Reactions, Alerts Substance Reaction Status Criticality No Known Allergies Active No Inform ation Medications Medication Instructions Dosage Effective Dates (start - stop) Status Comments metformin 500 mg tablet take 1 tablet by oral route every day with morning and evening meals 500 MG - Active Procedures Procedure Date Expanded Visit Low Complex Tel Virt AMNT PAIN NOTED; NONE PRSNT MED LIST DOCD IN RCRD DEPRESSION SCREENING TOBACCO USE, SMOKING, ASSESS TOBACCO NON-USER PT SCRND [place] USE FEMAL EDUC MAMMO PAP SBIRT SCREEN NEGATIVE Routine Venipuncture Temp Fix HG A1C LEVEL LT 7.0% SYST BP LT 130 MM HG DIAST BP < 80 MM HG SBIRT SCREEN NEGATIVE AMNT PAIN NOTED; NONE PRSNT MED LIST DOCD IN RD DEPRESSION SCREENING TOBACCO USE, SMOKING, ASSESS TOBACCO NON-USER PT SCRND [place] USE GLYCATED HEMOGLOBIN A1C IN HOUSE 2021 CAPILLARY BLOOD DRAW HG A1C LEVEL LT 7.0% OFFICE/OUTPATIENT VISIT, [facility] Advance Directives Directive Yes / No Effective Date File Name Other Directive No N/A N/A WARNING:The information contained in this section is historical and is provided for information only and does not constitute a legal document or any assurance that the information is still accurate. Please verify the information with the hanna of the legal document before using it for clinical purposes. Encounters Encounter Description Practice Location Reason(s) For Visit Diagnoses Date Provider Providers Copied on Encounter [address], [id number] , [facility] Impaired glucose tolerance 2 Mimi Sewell. [address], [place], [place], [id number], [place]. tel:[phone] Referring Provider: Desir[address], [place], [address] . 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 . Referring Provider: Desir[address], [place], [address] . tel:[phone] OFFICE/OUTPA TIENT VISIT, [address], [id number] , [facility] Exposure to Mononucleosis (chief complaint) Body mass index [BMI] 27.0-27.9, adultEncounter for screening for diabetes mellitusEncntr screen for infections w sexl mode of transmissEncoun ter for screening for lipoid disordersExerci se counselingDieta ry counseling and surveillanceFam cassie history of diabetes mellitusEncount er for screening for other viral diseasesPrediab etes 2 Mimi Sewell. [address], [place], [place], [id number], [place]. tel:[phone] Referring Provider: Nicolette Le, [address], [place], [address] . tel:[phone] Family History Family Member Type Diagnosis Age At Onset Father Problem Diabetes mellitus Mother Problem Diabetes mellitus Payers Payer name Insurance type Covered republican ID Syed hawthorne(s) Medicaid [facility] FMD Members Only CI [id number] Social History Type Description Quantity Date Captured Comments Alcohol Use Details No Caffeine Use Details Tobacco Use Status No Information Smoking Status Never smoker Non-Smoking Tobacco Use Details : No Details Available : No Details Available Sex Female Chief Complaint And Reason For Visit No Information Reason For Referral Reason For Referral No Information Plan Of Treatment Date Type Action Status Goal Depression scree ana. Due on due Goal HPV (). Due on due Goal Lipid panel. Due on 027 due Goal Td vaccine. Due on due Goal Tdap. Due on due Goal Fluoride varnish application. Due on due Goal Influenza vaccine. Due on due Goal Fluoride varnish application. Due on due Goal Depression scree ana. Due on due Goal Tdap. Due on due Goal Influenza vaccine. Due on due Goal Td vaccine. Due on due Goal HPV (1st). Due on due Goal Lifestyle education regardin g diet completed Patient Education Prediabetes: After Your Visit completed Patient Education Body Mass Index: After Your Visit completed Apr-05-2022 Future Order: Lab Order HEMOGLOB IN A1C ([id number]), Added on: New History Of Present Illness Encounter Date Complaint History Of Prese nt Illness Exposure to Mononucleosis The sy mptoms began 3 weeks ago. She states the symptoms are acute and are unchanged. Exposure to Mononucleosis , roommate has it & she wants to get ifrah jese; denies fatigue, abdominal pain or fever. Functional Status Date Functional Assessmen t Pain Score 0/10 Instructions Date Instruction Additional Infor agapito Giving encouragement to exercise Related to Body mass index [BMI] 27.0-27.9, adult Lifestyle education regarding di et Related to Body mass index [BMI] 27.0-27.9, adult Assessments Type Assessment Date assessment Impaired glucose tolerance impression Recommend Metformin 500 mg 1-2 x /day, pt moved out of the state & has a new PCP.Low carb diet & exercise. Mental Status Date Cognitive Assessment Orientation - [place] ed to time, place, person, situation. Patient Care Teams Name Effective Dates (start - stop) Status Members No Information
--- OUTSIDE RECORDS SUMMARY | 2025-04-28 07:05 | XMS_ITS | Clinical Summary ---
Author Organization [employer] Address [address] [place] [address] Care Team Providers Care Residential Worker Name Role Phone Unavailable Primary Care [...] to complete this topic Insurance [address] [place] [address] [facility] [email or web address] PLAN
[2025-04-28 08:42] LABS: HBS Num1 0.00 mIU/mL (0-7.99); ~Hepatitis B Surface Antibody NONREACTIVE (Nonreactive)
[2025-04-28 08:58] LABS: Folate 6.5 ng/mL (> or = 4.0); Vitamin B12 261 pg/mL (200-900)
== END 2025-04-28 07:02 | disposition home or self-care (01) ==
LOC: HO.LAB 07:01
PROVIDERS: PCP Internal Medicine; Visit Provider Internal Medicine
DX: Z01.84 Encounter for antibody response examination (principal); Z11.59 Encounter for screening for other viral diseases; E53.8 Deficiency of other specified B group vitamins; R53.83 Other fatigue; R51.9 Headache, unspecified; G89.29 Other chronic pain
CPT/HCPCS: 36415; 82607; 82746; 83090; 83921; 86340; 86706

== ENCOUNTER 2025-05-02 14:26 | Outpatient (AMB) | payer OTHER, SELFPAY ==
--- OUTSIDE RECORDS SUMMARY | 2021-09-17 11:30 | XMS_ITS | Continuity of Care Document ---
Author Organization [facility] In PHYSICIAN OFFICE SPECIALIST [facility] Address [address] [place] [address] Care Team Providers Care Servomechanism Assembler Name Role Phone Nicolette Le MD Unavailable [...] HG A1C LEVEL LT 7.0% OFFICE/OUTPATIENT VISIT, [facility] Advance Directives Directive Yes / No [...] Date Provider Providers Copied on Encounter [address], [id number] , [facility] Impaired glucose tolerance 2 Mimi Sewell. [address], [place], [place], [address], [place]. tel:[phone] Referring Provider: Desir[address], [place], [address] . 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 . Referring Provider: Desir[address], [place], [address] . tel:[phone] OFFICE/OUTPA TIENT VISIT, [address], [id number] , [facility] Exposure to Mononucleosis (chief complaint) Body mass index [BMI] 27.0-27.9, adultEncounter for screening for diabetes mellitusEncntr screen for infections w sexl mode of transmissEncoun ter for screening for lipoid disordersExerci se counselingDieta ry counseling and surveillanceFam cassie history of diabetes mellitusEncount er for screening for other viral diseasesPrediab etes 2 Mimi Sewell. [address], [place], [place], [address], [place]. tel:[phone] Referring Provider: Nicolette Le, [address], [place], [address] . tel:[phone] Family History Family Member Type Diagnosis Age At Onset Father Problem Diabetes mellitus Mother Problem Diabetes mellitus Payers Payer name Insurance type Covered democrat ID Syed hawthorne(s) Medicaid [facility] FMD Members Only CI [id number] Social History Type Description Quantity Date Captured [...] Future Order: Lab Order HEMOGLOB IN A1C ([id number]), Added on: New History Of Present Illness [...] Mental Status Date Cognitive Assessment Orientation - [place] ed to time, place, person, situation. Patient Care Teams Name Effective Dates (start - stop) Status Members No Information
--- NOTE | 2025-05-02 14:47 | AM.OFFVISNUR ---
Intake Visit Reasons: B-12 shot Allergies No Known Allergies Allergy (Verified 04/24/25 14:07) Nursing Note Pt came Vitamin B12 injection to left deltoid. Pt tolerated well. After injection was given pt came back to the room stated that she needed to be taught how to self inject the Vitamin B12 because she is unable to come in every week. Pt taught and returned positive demonstration. Office Meds cyanocobalamin (vitamin B-12) 1,000 mcg/mL injection solution Performing Provider: Araceli De MD Performing Location: [facility] Administered by: Umu Bauman on 05/02/25 14:50 Dose Route Admin Location Dispensed Lot Number Expiration Date [facility] Secretary Administrative Assistant 1,000 mcg IM 1 mL [id number] 01/01/26 66474-490-92 M[employer] Total Dispensed Waste 1 mL 0 % Assessment & Plan Assessment & Plan Orders: Orders AMB Vitamin B12 Injection Patient Supplied Today E53.8 - Deficiency of other specified B group vitamins Coding
--- OUTSIDE RECORDS SUMMARY | 2025-05-02 15:55 | XMS_ITS | Clinical Summary ---
Author Organization [employer] Address [address] [place] [address] Care Team Providers Care Premium Auditor Name Role Phone Unavailable Primary Care Provider [...] to complete this topic Insurance [address] [place] [address] [facility] [employer] PLAN
== END 2025-05-02 15:26 | disposition home or self-care (01) ==
LOC: HO.HMCC 14:27
PROVIDERS: PCP Internal Medicine
DX: E53.8 Deficiency of other specified B group vitamins (principal)

== ENCOUNTER → 2025-05-02 14:26 | Outpatient (BNVA) | payer OTHER, SELFPAY | PROVIDERS: PCP Internal Medicine | DX: E53.8 Deficiency of other specified B group vitamins (principal) | CPT/HCPCS: 96372; J3420 ==